=== PATIENT | female | born 1965 | race Caucasian/White ===

== ENCOUNTER 2024-03-20 13:56 | Outpatient (REF) | payer BC, SELFPAY ==
--- OUTSIDE RECORDS SUMMARY | 2024-03-20 17:35 | XMS_ITS | Clinical Summary ---
Author Organization [facility] [address] [facility] lding Address [address] [facility] [place] [address] Phone Care Team Providers Care Waste Reduction Coordinator Name Role Phone Deya Mixon MD Primary Care Provider [phone] Allergies No known active allergies Medications Medication Sig Dispensed Refills Start Date End Date Status estradioL (ESTRACE) 1 mg tablet Take 1 tablet (1 mg total) by mouth 1 (one) time each day. 05/08/2023 06/01/2024 Active estradioL (ESTRACE) 2 mg tablet Take 1 tablet (2 mg total) by mouth 1 (one) time each day. for 360 days 10/02/2023 09/26/2024 Active levonorgestreL (MIRENA) 21 mcg/24hr (up to 8 yrs) 52 mg IUD 1 Device (1 each total) by intrauterine route 1 (one) time. Active valACYclovir (VALTREX) 500 mg tablet Take 1 tablet (500 mg total) by mouth 1 (one) time each day. 09/26/2022 Active Active Problems Problem Noted Date Diagnosed Date Arthralgia 09/26/2022 Stress incontinence 09/26/2022 Chronic back pain 08/04/2021 Diverticulosis 04/25/2016 Overview (01/15/2024): Seen on colonoscopy 03/2016 Abdominal obesity 05/14/2013 Pap smear abnormality of cervix 04/29/2013 Overview (01/15/2024): History: PAP 03/12/2012: Cytology negative; High Risk HPV DNA detected PAP 04/29/2013: Cytology Negative; HPV DNA negative PAP 04/01/2019: Cytology Negative; High Risk HPV DNA negative Depressive disorder 06/23/2005 Herpes simplex virus (HSV) infection 06/23/2005 Overview (01/15/2024): IMO update Pure hypercholesterolemia 06/23/2005 Encounters Date Type Department Care Team Description 02/12/2024 3:59 PM EST - 02/12/2024 11:59 PM EST Hospital Encounter Radiology Department - [address] [address] Irregular bleeding; IUD (intrauterine device) in place Discharge Disposition: Home or Self Care 02/05/2024 Telephone Obstetrics and Gynecology - [place] [address] [place] [address] Aissatou Carranza CNM Biopsy 01/01/2024 Telephone Obstetrics and Gynecology - [place] [address] [place] [address] Aissatou Carranza CNM Appointment from Last 3 Months Immunizations Name Administration Dates Next Due Influenza Quadravalent, MDCK , 0.5ml, preservative free (Flucelvax) 6mo and older 12/07/2021 Influenza trivalent, 0.5mL, preservative free (Fluarix; FluLaval; Fluzone) ages 6mo and older (Afluria) 3 years and older 12/23/2018,12/22/2017,11/13/2015,2014,12/13/2013,12/04/2012 Influenza trivalent, with preservative (Fluzone; Afluria) 6mo and older 01/12/2020 Td Tetanus diptheria (Tdvax) 7yo and older 08/04/2021,03/30/1999 Tdap Tetanus diptheria acell ular pertussis (Boostrix; Adacel) 7yo and older 08/25/2009 Surgical History Surgery Date Site/Laterality Comments BREAST REDUCTION 1- PROCEDURE: [place] BREAST REDUCTION OTHER SURGICAL HISTORY 05/29/06 PROCEDURE: [place] CRYOTHERAPY CO2 SLUSH LIQUID N2 ACNE; COMMENT: Cryotherapy to the cervix COLONOSCOPY 04.22.16 PROCEDURE: HISTORICAL COLONOSCOPY; COMMENT: tics; repeat in 10 yrs Medical History Medical History Date Comments Pure hypercholesterolemia DX:Pur e hypercholesterolemia Depressive disorder, not els ewhere classified DX:Depressive disorder, not elsewhere classified Herpes simplex without menti on of complication DX:Herpes simplex without me ntion of complication Pap smear abnormality of cervix 04/29/2013 DX:Pap smear abnormality of cervix Family History Medical History Relation Name Comments Hyperlipidemia Brother 1 Other: kidney CANCER Brother 1 No Known Problems Daughter 1 Anna No Known Problems Daughter 2 Dena Hypertension Father cad Lung cancer Maternal Grandfather Breast cancer Maternal Grandmother diagno sed at age 56 No Known Problems Mother Heart attack Paternal Grandfather Heart attack Paternal Grandmother Stroke Paternal Grandmother No Known Problems Sister No Known Problems Son Omar Cancer of Small Bowel Neg Hx Colon cancer Neg Hx Ovarian cancer Neg Hx Pancreatic cancer Neg Hx Uterine cancer Neg Hx Relation Name Status Comments Brother 1 Alive Brother 2 Alive hypercholestero l Daughter 1 Anna Alive Daughter 2 Dena Alive Father htn - ptca/sten t Maternal Grandfather (Age 58) mi Maternal Grandmother (Age 61) br east cancer Mother Alive well Paternal Grandfather (Age 72) mi Paternal Grandmother Sister Alive Son Omar Alive Social History Tobacco Use Types Packs/Day Years Used Date Smoking Tobacco: Former Cigarettes Q uit: 02/27/1995 Smokeless Tobacco: Never Alcohol Use Standard Drinks/Week Comments Yes 3.3 (1 standard drink = 0.6 oz p ure alcohol) Sex and Gender Information Value Date Recorded Sex Assigned at Female 02/08/2024 2:45 PM EST Gender Identity Female 02/08/2024 2:45 PM EST Sexual Orientation Not on file Job Start Date Occupation Industry Not on file Not on file Not on file Obstetrics History Last Filed Vital Signs Vital Sign Reading Time Taken Comments Blood Pressure 138/77 05/08/2023 11:22 AM EDT Pulse 68 01/23/2023 11:44 AM EST Temperature - - Respiratory Rate - - Oxygen Saturation - - Inhaled Oxygen Concentration - - Weight 75.5 kg (166 lb 6.4 oz) 05/08/2023 11:22 AM EDT Height 172.7 cm (5' 8 ) 05/08/2023 11:22 AM EDT Body Mass Index 25.3 05/08/2023 11:22 AM EDT Plan of Treatment Health Maintenance Due Date Last Done Comments Breast Cancer Screening 1965 Hepatitis B Vaccines (1 of 3 - 19+ 3-dose series) 1984 Depression Screening 02/05/2022 HIV Screening 02/05/2022 Social Influencers of Health Screening 02/05/2022 COVID-19 Vaccine ( season) 2023 02/02/2021, 07/08/2020, 06/17/2020 Influenza Vaccine (#1) 2023 , 01/12/2020, 12/23/2018, Additional history exists Cervical Cancer Screening: HPV 04/01/2024 04/01/2019 Colorectal Cancer Screening: Colonoscopy 04/22/2026 04/22/2016 Cholesterol Screening (Lipid Panel) 05/07/2028 05/08/2023 DTaP,Tdap,and Td Vaccines (4 - Td or Tdap) 08/05/2031 08/04/2021, 08/25/2009, 03/30/1999 Zoster Vaccines Completed 04/13/2021, 02/02/2021 Hepatitis C Screening Completed 08/04/2021 HIB Vaccines Aged Out No longer eligi ble based on patient's age to complete this topic HPV Vaccines Aged Out No longer eligi ble based on patient's age to complete this topic Hepatitis A Vaccines Aged Out No long er eligible based on patient's age to complete this topic IPV Vaccines Aged Out No longer eligi ble based on patient's age to complete this topic MMR Vaccines Aged Out No longer eligi ble based on patient's age to complete this topic Meningococcal ACWY Vaccine Aged Out N o longer eligible based on patient's age to complete this topic Pneumococcal Vaccine: Pediatrics (0 to 5 Years) and At-Risk Patients (6 to 64 Years) Aged Out No longer eligible based on patient's age to complete this topic RSV Immunization Patients Under 20 months Aged Out No longer eligible based on patient's age to complete this topic Varicella Vaccines Aged Out No longer eligible based on patient's age to complete this topic Procedures Procedure Name Priority Date/Time Associated Diagnosis Comments US PELVIS NON OB COMPLETE W TRANSVAGINAL Routine 02/12/2024 4:27 PM EST Irregular bleeding IUD (intrauterine device) in place LIPID PANEL Routine 05/08/2023 HM HEPATITIS C SCREENING Routine 08/04/2021 HPV Routine 04/01/2019 COLONOSCOPY Routine 04/22/2016 from Last 3 Months or Most Recently Relevant to Health Maintenance Results * US Pelvis Non OB Complete w Transvaginal (02/12/2024 4:27 PM EST) Anatomical Region Laterality Modality Body, Pelvis Ultrasound 02/12/2024 5:12 PM EST Impressions 02/12/2024 5:14 PM EST Unremarkable sonographic appearance of the uterus. -------- FINAL REPORT -------- Dictated By: Simin Sam Dictated Date: 02/12/2024 17:12 ET Assigned Physician: Simin Sam Reviewed and Electronically Signed By: Simin Sam Signed Date: 02/12/2024 17:14 ET Workstation ID: [id number] Transcribed By: Self Edit Transcribed Date: 02/12/2024 17:12 ET Narrative 02/12/2024 5:14 PM EST EXAM(s): ?? US PELVIS NON OB COMPLETE W TRANSVAGINAL COMPARISON: None HISTORY: irreg bleeding, IUD in place FINDINGS: UTERUS: The uterus measures 8.0 x 3.5 x 5.8 cm, volume of 85.0 cm3, and demonstrates homogeneous ??myometrial echotexture. The endometrial echocomplex measures 0.3 cm in thickness. ??An intrauterine device is identified terminating at 0.3 cm from the fundic end of the endometrial cavity. RIGHT OVARY: Not visualized. LEFT OVARY: Not visualized. ?? PELVIS: No free fluid. Procedure Note Simin Sam MD - 02/12/2024 EXAM(s): US PELVIS NON OB COMPLETE W TRANSVAGINAL COMPARISON: None HISTORY: irreg bleeding, IUD in place FINDINGS: UTERUS: The uterus measures 8.0 x 3.5 x 5.8 cm, volume of 85.0 cm3, anddemonstrates homogeneous myometrial echotexture. The endometrialechocomplex measures 0.3 cm in thickness. An intrauterine device isidentified terminating at 0.3 cm from the fundic end of the endometrialcavity. RIGHT OVARY: Not visualized. LEFT OVARY: Not visualized. PELVIS: No free fluid. IMPRESSION: Unremarkable sonographic appearance of the uterus. -------- FINAL REPORT -------- Dictated By: Simin Sam Dictated Date: 02/12/2024 17:12 ET Assigned Physician: Simin Sam Reviewed and Electronically Signed By: Simin Sam Signed Date: 02/12/2024 17:14 ET Workstation ID: [id number] Transcribed By: Self Edit Transcribed Date: 02/12/2024 17:12 ET Aissatou Carranza CNM IMG US PROCEDURES * (ABNORMAL) Lipid panel (05/08/2023) [facility] LDL/HDL Ratio 3 0 - 4 Triglycerides 103 0 - 150 mg/dL Cholesterol 277(A) 0 - 200 mg/dL HDL 93 40 mg/dL LDL Cholesterol 164(A) 0 - 100 mg/dL Blood Venous blood specimen / Unknown Historical Provider LAB BLOOD ORDERAB LES * Hepatitis C Screening (08/04/2021) [facility] Hepatitis C Screening Abstracted Historical Provider MD TAYLOR TRISTAN * Cervical Cancer Screening: HPV (04/01/2019) [facility] Cervical Cancer Screening: HPV Negative, abstracted Historical Provider MD TAYLOR TRISTAN E * Colonoscopy (04/22/2016) [facility] Colonoscopy No interpretation , abstracted Anatomical Region Laterality Modality Other Historical Provider MD TAYLOR Acuna from Last 3 Months or Most Recently Relevant to Health Maintenance Care Teams Waste Reduction Coordinator Relationship Specialty Start Date End Date Deya Mixon MD [address] [place] [id number] PCP - General 08/14/23
[2024-03-20 17:42] LABS: MANUAL DIFF FLAG NO
[2024-03-20 17:49] LABS: Basophils Percent Auto 0.5 % (0-2); Eosinophils Absolute Auto 0.1 X10*3/uL (0.0-0.4); Eosinophils Percent Auto 0.6 % (0-4); Hemoglobin 13.1 g/dl (12.0-16.0); Imm Gran Abs Auto 0.05 X10*3/uL (0.00-0.03); Imm Gran Pct Auto 0.6 % (0.0-0.4); Lymphocytes Absolute Auto 2.3 X10*3/uL (1.2-4.9); Lymphocytes Percent Auto 25.5 % (20-40); Mean Corpuscular HGB Conc 33.6 g/dl (31.0-35.0); Mean Corpuscular Hemoglobin 31.6 pg (27.0-33.0); Mean Platelet Volume 10.4 fL (9.4-12.3); Monocytes Absolute Auto 0.7 X10*3/uL (0.1-1.2); Monocytes Percent Auto 7.6 % (2-11); Neutrophils Absolute Auto 5.8 x10*3/uL (2.0-8.3); Neutrophils Percent Auto 65.2 % (45-73); Platelet Count 277 X10*3/uL (160-400); Red Blood Count 4.15 X10*6/uL (4.20-5.50); Red Cell Distribution Width 11.6 % (11.0-16.0); White Blood Count 8.8 X10*3/uL (4.8-10.8)
[2024-03-20 17:58] LABS: Alanine Aminotransferase 35 U/L (0-31); Aspartate Amino Transferase 38 U/L (5-31); C Reactive Protein 0.58 mg/dL (< or = 0.50); Calcium 9.5 mg/dL (8.4-10.2); Estimated Glomerular Filt Rate > 60; Magnesium 2.1 mg/dL (1.6-2.6); Potassium 4.1 mmol/L (3.3-5.1)
[2024-03-20 18:27] LABS: Vitamin B12 605 pg/mL (200-900)
[2024-03-20 18:44] LABS: Erythrocyte Sedimentation Rate 16 MM/HR (0-20)
[2024-03-26 06:54] LABS: Aldolase 4.9 U/L (<=8.1)
== END 2024-03-20 13:57 | disposition home or self-care (01) ==
LOC: HO.HKASLDS 13:56
PROVIDERS: Visit Provider Internal Medicine Rheumatology
DX: M79.10 Myalgia, unspecified site (principal); G62.9 Polyneuropathy, unspecified; M75.32 Calcific tendinitis of left shoulder
CPT/HCPCS: 36415; 82085; 82310; 82550; 82565; 82607; 83735; 84132; 84450; 84460; 85025; 85652; 86140

== ENCOUNTER 2024-03-20 13:56 | Outpatient (AMB) | payer BC, SELFPAY ==
[2024-03-20 14:01] VITALS: BP 112/62; PULSE 67; O2SAT 100; BMI 27.4
--- NOTE | 2024-03-20 14:01 | A.OFFVIS_ITS ---
Vital Signs 03/20/24 14:01 Height 5 ft 8 in Weight 180 lb 2 oz BMI 27.4 BP 112/62 Blood Pressure Location Lt brachial Position Sitting Pulse 67 Pulse Source Pulse Oximeter Pulse Oximetry (%) 100 Oxygen Delivery Method Room Air Intake Visit Reasons: osteoarthritis Intake Note: Patient presents for osteoarthritis today, she last saw Dr. Boateng on 02/28/23. Allergies No Known Allergies Allergy (Verified 03/20/24 14:08) HPI HPI osteoarthritis: Details: Patient is seeking 2nd opinion. She saw Dr. Boateng ATC 2022 who suspected she had fibromyalgia contributing to chronic myalgias. She is experiencing chronic diffuse myalgias in arms and legs for the last 4 years. Waking up with pain. She has intermittent swelling in knees. Pain in knees with prolonged walking. Atorvastatin started october 2023. Pain in muscles has gotten worse since atorvastatin. PCP started lyrica 6 months ago without a change in reducing pain for management of fibromyalgia. Industrial Refrigeration Mechanic prescribed duloxetine but she became nauseous. Failed meloxicam and diclofenac. She has not tried gabapentin. Chronic back pain in left > Right radiculopathy. Previously had L spine cortisone injection with 3 weeks of benefit. She completed PT. She is not complaint with exercises. Wakes up with fingers numb. Nocturnal paresthesia in fingers. She also has numbness in her feet which sometimes coincides with numbness in her fingers. Denies rashes, oral ulcers, dyspnea, fevers, night sweat, pleurisy, raynaud's syndrome, urinary symptoms, photosensitivity, dysphagia. Facial redness since manopause. She has not started on any new medication recently. Lost 40lbs intentially She reports that she has had testing for diabetes on a number of occasions. She has been found to be insulin resistant but not diabetic. Sometimes her blood sugar level is low. She wears a blood sugar monitor. She has had thyroid function test number of times, which has also been normal. No rheumatological family history. Breast reduction surgery. Pmx insulin resistance, HLD, HSV PFSH Surgical History (Updated 03/20/24 @ 14:10 by Cande Tran CMA) S/P bilateral breast reduction Family History (Updated 03/20/24 @ 14:12 by Cande Tran CMA) Maternal Grandmother Cancer Maternal Grandfather Heart attack Paternal Grandmother Stroke Review of Systems Const All systems reviewed & are unremarkable except as noted in HPI and below Physical Exam Vital Signs: Last Vital Signs Pulse 67 03/20/24 14:01 BP 112/62 03/20/24 14:01 Pulse Ox 100 03/20/24 14:01 Oxygen Delivery Method Room Air 03/20/24 14:01 BMI result Body Mass Index 27.4 Const Other: Negative Phalen's test.or tender points on her back. Power 5/5 upper extremities. Power 4/5 hip flexors, 5/5 hip extensors, 5/5 knee extensors and flexors. She is able to get up out of a chair to standing position without using hands on armrest. She is able to squat but not fully. Negative Phalen's test. Assessment & Plan Assessment & Plan (1) Myalgia: Comment: Chronic myalgias for 4 years, which has worsened on atorvastatin. She has associated paresthesia of bilateral hands and feet. On exam she has lower extremity proximal muscle weakness. Differential diagnosis includes statin induced myopathy, metabolic myopathy with idiopathic inflammatory myopathy lower on the differential. Her clinical exam did not reveal tender points to suggest fibromyalgia. Code(s): M79.10 - Myalgia, unspecified site Category: Medical Plan: Labs ordered: Baseline labs, inflammatory markers, Muscle enzymes, electrolytes, vitamin B12 EMGs of bilateral upper extremities and right lower extremity ordered. I will avoid having EMG of left lower extremity in case muscle biopsy is needed. I will consider trial off of atorvastatin next visit. I have asked patient to contacted concerns to establish with PCP as her current PCP is closing practice. Return to clinic in 2-3 weeks (2) Neuropathy: Code(s): G62.9 - Polyneuropathy, unspecified Category: Medical Plan: See above (3) Calcific tendonitis of left shoulder: Comment: Chronic but intermittent. X-ray report from 02/17/2023 [facility] reviewed, which reveals calcific tendinitis. We discussed diagnosis and management. Code(s): M75.32 - Calcific tendinitis of left shoulder Category: Medical Plan: PT ordered. Patient prefers to have PT locally. Prescription given to patient. Orders: Orders Erythrocyte Sedimentation Rate Today M79.10 - Myalgia, unspecified site C Reactive Protein Today M79.10 - Myalgia, unspecified site Creatinine Today M79.10 - Myalgia, unspecified site Calcium Today M79.10 - Myalgia, unspecified site NE electromyogram (EMG) Today G62.9 - Polyneuropathy, unspecified, M79.10 - Myalgia, unspecified site PT Evaluation and Treatment Today M75.32 - Calcific tendinitis of left shoulder Alanine Aminotransferase Today M79.10 - Myalgia, unspecified site Aspartate Amino Transferase Today M79.10 - Myalgia, unspecified site Complete Blood Count Auto Diff Today M79.10 - Myalgia, unspecified site Creatine Kinase Total Today M79.10 - Myalgia, unspecified site Aldolase Today M79.10 - Myalgia, unspecified site Magnesium Today M79.10 - Myalgia, unspecified site Potassium Today M79.10 - Myalgia, unspecified site Vitamin B12 Today G62.9 - Polyneuropathy, unspecified Coding Level of Care Code New Pt Level 4 (19061) Diagnoses Myalgia M79.10 Neuropathy G62.9 Calcific tendonitis of left shoulder M75.32
== END 2024-03-20 15:06 | disposition home or self-care (01) ==
PROVIDERS: Visit Provider Internal Medicine Rheumatology
DX: M79.10 Myalgia, unspecified site (principal); G62.9 Polyneuropathy, unspecified; M75.32 Calcific tendinitis of left shoulder
CPT/HCPCS: 99204

== ENCOUNTER 2024-04-02 08:15 | Outpatient (AMB) | payer BC, SELFPAY ==
--- OUTSIDE RECORDS SUMMARY | 2024-04-02 08:19 | XMS_ITS | Clinical Summary ---
Author Organization [facility] [address] [facility] lding Address [address] [place] [facility] [place] [address] Phone Care Team Providers Care Saw Cleaner Name Role Phone Deya Mixon MD Primary Care Provider [phone] Allergies No known active allergies Medications Medication [...] PM EST Hospital Encounter Radiology Department - [address] [address] Irregular bleeding; IUD (intrauterine device) in place Discharge Disposition: Home or Self Care 02/05/2024 Telephone Obstetrics and Gynecology - [place] [address] [place] [address] Aissatou Carranza CNM Biopsy 01/01/2024 Telephone Obstetrics and Gynecology - [place] [address] [place] [address] Aissatou Carranza CNM Appointment from [...] Signed Date: 02/12/2024 17:14 ET Workstation ID: [id number] Transcribed By: Self Edit Transcribed Date: 02/12/2024 [...] Signed Date: 02/12/2024 17:14 ET Workstation ID: [id number] Transcribed By: Self Edit Transcribed Date: 02/12/2024 17:12 ET Aissatou Carranza CNM IMG US PROCEDURES * (ABNORMAL) Lipid panel (05/08/2023) [facility] LDL/HDL Ratio 3 0 - 4 Triglycerides 103 0 - 150 mg/dL Cholesterol 277(A) 0 - 200 mg/dL HDL 93 40 mg/dL LDL Cholesterol 164(A) 0 - 100 mg/dL Blood Venous blood specimen / Unknown Historical Provider LAB BLOOD ORDERAB LES * Hepatitis C Screening (08/04/2021) [facility] Hepatitis C Screening Abstracted Historical Provider MD TAYLOR TRISTAN * Cervical Cancer Screening: HPV (04/01/2019) [facility] Cervical Cancer Screening: HPV Negative, abstracted Historical Provider MD TAYLOR TRISTAN E * Colonoscopy (04/22/2016) [facility] Colonoscopy No interpretation , abstracted Anatomical Region Laterality Modality Other Historical Provider MD TAYLOR Acuna from Last 3 Months or Most Recently Relevant to Health Maintenance Care Teams Saw Cleaner Relationship Specialty Start Date End Date Deya Mixon MD [address] [place] [id number] PCP - General 08/14/23
[2024-04-02 08:25] VITALS: BP 118/72; PULSE 76; O2SAT 97; BMI 27.8
--- NOTE | 2024-04-02 08:25 | MHC.OFFVIS ---
Vital Signs 04/02/24 08:25 Height 5 ft 8 in Weight 183 lb BMI 27.8 BP 118/72 Blood Pressure Location Lt brachial Position Sitting Pulse 76 Pulse Source Pulse Oximeter Pulse Oximetry (%) 97 Oxygen Delivery Method Room Air Intake Visit Reasons: 2-3 weeks f/u Intake Note: Patient presents for follow up on myalgia. She was last seen in the office by Dr. Pederson on 03/20/24. Follow up on loabs today, too. Allergies No Known Allergies Allergy (Verified 04/02/24 08:28) Do you need a note to return to daycare/school/sports/work: No HPI HPI 2-3 weeks f/u: Details: There has been no change in her symptoms. EMG scheduled at the end of the month. She woke up recently with numbness in her hands, self resolved. [facility] Surgical History (Updated 03/20/24 @ 14:10 by Cande Tran CMA) S/P bilateral breast reduction Family History (Updated 03/20/24 @ 14:12 by Cande Tran CMA) Maternal Grandmother Cancer Maternal Grandfather Heart attack Paternal Grandmother Stroke Review of Systems Const All systems reviewed & are unremarkable except as noted in HPI and below Physical Exam Vital Signs: Last Vital Signs Pulse 76 04/02/24 08:25 BP 118/72 04/02/24 08:25 Pulse Ox 97 04/02/24 08:25 Oxygen Delivery Method Room Air 04/02/24 08:25 BMI result Body Mass Index 27.8 Const Other: General: Comfortable Skin: No lesions seen MSK: Diffuse tenderness of upper extremities. Tender bilateral shoulders. She has full range of motion of bilateral shoulders but it occurs slowly with pain. No tender points and lower extremities and back. Assessment & Plan Assessment & Plan (1) Myalgia: Comment: Chronic myalgias for 4 years, which has worsened on atorvastatin. She has associated paresthesia of bilateral hands and feet. On last exam she has lower extremity proximal muscle weakness. I am concerned that she has statin induced myopathy contributing to her myalgias and muscle weakness. Muscle enzymes are normal. She has mild elevation in CRP. Code(s): M79.10 - Myalgia, unspecified site Category: Medical Plan: She will be having a telehealth visit with PCP. I recommending discontinuing atorvastatin. She will follow-up with me in 6 weeks' time for EMG results. I will then check liver function tests. EMGs of bilateral upper extremities and right lower extremity scheduled for 04/26/2024 Return to clinic in 6 weeks (2) Neuropathy: Code(s): G62.9 - Polyneuropathy, unspecified Category: Medical Plan: EMG scheduled for further evaluation (3) Calcific tendonitis of left shoulder: Comment: Chronic but intermittent. X-ray report from 02/17/2023 [facility] reviewed, which reveals calcific tendinitis. Patient has not scheduled physical therapy Code(s): M75.32 - Calcific tendinitis of left shoulder Category: Medical Plan: I encouraged patient to schedule physical therapy and rehab resolutions, where patient prefers to go for PT. Coding Level of Care Code Est Pt Level 4 (35133) Complex EM visit Add On G2211 Diagnoses Myalgia M79.10 Neuropathy G62.9 Calcific tendonitis of left shoulder M75.32
== END 2024-04-02 09:00 | disposition home or self-care (01) ==
PROVIDERS: Visit Provider Internal Medicine Rheumatology
DX: M79.10 Myalgia, unspecified site (principal); G62.9 Polyneuropathy, unspecified; M75.32 Calcific tendinitis of left shoulder
CPT/HCPCS: 99214

== ENCOUNTER 2024-05-22 13:06 | Outpatient (REF) | payer BC, SELFPAY ==
--- NOTE | 2024-05-22 13:16 | EMG_ITS ---
Chief complaint: Upper extremity weakness. Noted 4+/5 today on shoulder abduction. No atrophy seen. Bilateral feet numbness, today more prominent on right foot. No footdrop. Reason for referral: Evaluate for myopathy Referred by: Dr. Pederson Procedure done: Bilateral upper and right lower extremities NCS/EMG Precautions and/or limitations: None The limb temperature was monitored continuously and remained between 32-36 degrees C during the performance of the NCS. Nerve Conduction Studies Anti Sensory Summary Table ?Stim Site NR Onset (ms) Norm Onset (ms) Peak (ms) Norm Peak (ms) O-P Amp (?V) Norm O-P Amp Site1 Site2 Delta-0 (ms) Dist (cm) Joe (m/s) Norm Joe (m/s) Left Median Anti Sensory (2nd Digit) Wrist ? 2.5 3.2 <3.6 15.0 >10 Wrist 2nd Digit 2.5 14.0 56 Right Median Anti Sensory (2nd Digit) Wrist ? 2.1 3.2 <3.6 23.4 >10 Wrist 2nd Digit 2.1 14.0 67 Right Radial Anti Sensory (Thumb) Forearm ? 1.7 2.3 <3.1 14.2 Forearm Thumb 1.7 0.0 Right Sural Anti Sensory (Lat Mall) Calf ? 3.1 3.7 <4.0 6.7 >5.0 Calf Lat Mall 3.1 14.0 45 Left Ulnar Anti Sensory (5th Digit) Wrist ? 2.6 3.2 <3.7 17.5 >15.0 Wrist 5th Digit 2.6 14.0 54 Right Ulnar Anti Sensory (5th Digit) Wrist ? 0.9 3.0 <3.7 17.9 >15.0 Wrist 5th Digit 0.9 14.0 156 Motor Summary Table ?Stim Site NR Onset (ms) Norm Onset (ms) O-P Amp (mV) Norm O-P Amp iAmp (mV) Amp (1st) (%) Site1 Site2 Delta-0 (ms) Dist (cm) Joe (m/s) Norm Joe (m/s) Left Median Motor (Abd Poll Brev) Wrist ? 3.0 <3.9 13.1 >4.5 15.5 100.0 Elbow Wrist 4.0 21.0 53 >45 Elbow ? 7.0 12.8 15.2 97.7 Right Median Motor (Abd Poll Brev) Wrist ? 3.0 <3.9 15.0 >4.5 17.1 100.0 Elbow Wrist 4.0 21.0 53 >45 Elbow ? 7.0 13.3 15.0 88.7 Right Peroneal Motor (Ext Dig Brev) Ankle ? 3.9 <4.0 3.5 >2.5 4.0 100.0 Ankle Ext Dig Brev 3.9 0.0 B Fib ? 10.8 3.8 4.5 108.6 B Fib Ankle 6.9 31.0 45 >40 Poplt ? 11.7 3.8 4.5 108.6 Poplt B Fib 0.9 5.0 56 >40 Right Tibial Motor (Abd Gorman Brev) Ankle ? 4.1 <5 8.0 >2.5 12.6 100.0 Ankle Abd Gorman Brev 4.1 0.0 Knee ? 13.4 7.3 9.5 91.3 Knee Ankle 9.3 38.0 41 >40 Left Ulnar Motor (Abd Dig Minimi) Wrist ? 3.0 <3.0 6.0 >5 7.5 100.0 B Elbow Wrist 3.0 19.0 63 >45 B Elbow ? 6.0 6.6 8.5 110.0 A Elbow B Elbow 1.6 10.0 63 >45 A Elbow ? 7.6 6.5 8.3 108.3 Right Ulnar Motor (Abd Dig Minimi) Wrist ? 2.8 <3.0 9.9 >5 11.7 100.0 B Elbow Wrist 3.1 20.0 65 >45 B Elbow ? 5.9 9.5 11.7 96.0 A Elbow B Elbow 1.4 10.0 71 >45 A Elbow ? 7.3 9.1 11.3 91.9 EMG ?Side Muscle Nerve Root Ins Act Fibs Psw Amp Dur Poly Recrt Int Pat Comment Right 1stDorInt Ulnar C8-T1 Incr 1+ 1+ Nml Nml 0 Nml Complete Right FlexCarRad Median C6-7 Nml Nml Nml Nml Nml 0 Nml Complete Right Biceps Musculocut C5-6 Incr 1+ 1+ Nml Nml 0 Nml Complete Right Triceps Radial C6-7-8 Nml Nml Nml Nml Nml 0 Nml Complete Right Deltoid Axillary C5-6 Nml Nml Nml Nml Nml 0 Nml Complete Left 1stDorInt Ulnar C8-T1 Nml Nml Nml Nml Nml 0 Nml Complete Left FlexCarRad Median C6-7 Nml Nml Nml Nml Nml 0 Nml Complete Left Biceps Musculocut C5-6 Incr 1+ 1+ Nml Nml 0 Nml Complete Left Triceps Radial C6-7-8 Nml Nml Nml Nml Nml 0 Nml Complete Left Deltoid Axillary C5-6 Nml Nml Nml Nml Nml 0 Nml Complete Right AbdHallucis MedPlantar S1-2 Nml Nml Nml Nml Nml 0 Nml Complete Right AntTibialis Dp Br Peron L4-5 Nml Nml Nml Nml Nml 0 Nml Complete Right PostTibialis Tibial L5, S1 Nml Nml Nml Nml Nml 0 Nml Complete Right MedGastroc Tibial S1-2 Nml Nml Nml Nml Nml 0 Nml Complete Right VastusMed Femoral L2-4 Nml Nml Nml Nml Nml 0 Nml Complete Paraspinal EMG ?Side Muscle Nerve Root Ins Act Fibs Psw Comment Right Cervical Upper Rami Nml Nml Nml Right Cervical Mid Rami Nml Nml Nml Right Cervical Lower Rami Nml Nml Nml Left Cervical Upper Rami Nml Nml Nml Left Cervical Mid Rami Nml Nml Nml Left Cervical Lower Rami Nml Nml Nml Right Lumbar Upper Rami Nml Nml Nml Right Lumbar Mid Rami Nml Nml Nml Right Lumbar Lower Rami Nml Nml Nml FINDINGS: All motor and sensory nerves tested showed normal latencies, amplitudes and conduction velocities. Concentric needle EMG was performed in selected muscles of the bilateral upper and right lower extremities, cervical lumbar paraspinals. Study revealed signs of electric abnormalities as shown in the table above. Small PSWs seen on bilateral biceps and right FDI muscle. No denervation or reinnervation changes seen in right lower extremity. No denervation seen on cervical or lumbar paraspinals. IMPRESSION: 1. Normal nerve conduction studies. 2. Needle EMG showed denervation findings seen bilateral proximal and distal muscles in upper extremities. Myopathy not completely ruled out. 3. Cervical radiculopathy not completely ruled out. 4. There is no electrodiagnostic evidence for median neuropathy, ulnar neuropathy, peroneal neuropathy, tibial neuropathy, or peripheral neuropathy. CLINICAL COMMENT: Consider muscle biopsy. Consider cervical imaging. Thank you for your kind referral. Nesha Salazar MD, FABIAN Board Certified, [place] Board [employer] and Rehabilitation (ABPMR) Board Certified, [place] Board [employer] Electrodiagnostic Medicine (ABEM) CODIN 01922 x 3 MTDD
--- OUTSIDE RECORDS SUMMARY | 2024-05-22 15:35 | XMS_ITS ---
Author Organization [facility] Address [address] [place], [place] [id number] Care Team Providers Care Hand Turner Name Role Phone JON VAILFER Primary Care Provider VANNESSA WORRELL Unavailable [phone] ALLERGIES No Known Allergies REASON FOR VISIT sick MEDICATIONS Medication SIG (Take, Route, Frequency, Duration) Notes Start Date End Date Status Atorvastatin Calcium 20 MG 1 tablet Orally Once a day for 90 days Active Pregabalin ER 330 MG 1 tablet after the evening meal Orally Once a day for 90 days 10/17/2023 Active Magnesium Glycinate 210mg Not-Taking Meloxicam 15 MG 1 tablet Orally Once a day Not-Taking Black Cohosh 540 MG as directed Orally 540mg Not-Taking FreeStyle Pa 3 Sensor - change sensor every 2 weeks for 90 days 06/13/2023 Active Acyclovir 400 MG 1 tablet Orally Once a day for 90 days Active Estradiol 2 MG 1 tablet Orally Once a day Active Mirena (52 MG) 20 MCG/DAY as directed Intrauterine Act bulmaro Vitamin B Complex - as directed Orally Active Acyclovir 5 % 1 application every 3 hours Externally Six times a day for 5 days 11/28/2023 Active Vitamin D 50 MCG (2000 UT) 1 capsule Orally Once a day Active SOCIAL HISTORY Tobacco Use: Social History Observation Description Date Details (start date - stop date) Former Smoker 02/28/1984 - 02/27/1994 Sex Assigned At : Social History Observation Description Sex Assigned At Unknown Tobacco Use/Smoking Question Answer Notes Tobacco use: former smoker When did you start smoking? 02/28/1984 When did you stop smoking? 02/27/1994 How long has it been since y ou last smoked? > 10 years Additional Findings: Tobacco User Modera te cigarette smoker (10-19 cigs/day) Section Notes: Patient lives in [place], [place] with 2 daughters. VITAL SIGNS Height 68 in 03/13/2024 Height-cm 172.72 cm 03/13/2024 Encounters Encounter Location Date Provider Diagnosis [address] [place] [id number] 03/13/2024 VANNESSA WORRELL Viral illness B34.9 ASSESSMENTS Encounter Date Diagnosis Assessment Notes Treatment Notes Treatment Clinical Notes Section Notes 03/13/2024 Viral illness (ICD-10 - B34.9) Question influenza vs RSV She is just outside of antiviral therapy and given her heartburn/burning upset this might make it worse She is to start Mucinex DM max BID x 5 days Tylenol/ibuprofen scheduled Increase fluids, Vit C, zinc, melatonin HS Will follow up Monday, prior if report is positive 03/13/2024 Other Total time spen t with patient 20 minutes which includes face to face visit, education and coordination of care. Total time spent with patient 20 minutes which includes face to face visit, education and coordination of care. PLAN OF TREATMENT Treatment Notes Assessment Notes Viral illness Question influenza vs RSV She is just outside of antiviral therapy and given her heartburn/burning upset this might make it worse She is to start Mucinex DM max BID x 5 days Tylenol/ibuprofen scheduled Increase fluids, Vit C, zinc, melatonin HS Will follow up Monday, prior if report is positive Other Total time spent wit h patient 20 minutes which includes face to face visit, education and coordination of care. Total time spent with patient 20 minutes which includes face to face visit, education and coordination of care. Next Appt Details Follow Up: 2 - 3 Days, Reaso n: swab/wellbeing Progress Notes * CLIFFORD GONZALESOB: 6 (58 yo F)Acc No.[id number]:03/13/2024 Patient:??MARIE GONZALES Provider:??VANNESSA WORRELL NP :1965?Age:58 Y?Sex:Fe male Date:03/13/2024 Phone: Address:[address] [place] [address] [id number] Pcp:NATASHA VAIL Subjective: * Chief Complaints: * ? sick * HPI: ?Patient Care Team:?Road Service Locksmith:??Road Service Locksmith: Dr. Lauren.?.??Bone Crusher:??Lui Wells MA.?.??Orthopedic:???[facility].? Providers/Specialists: Urogynogologist: Dr. Saldivar [facility]: Dr. Waller Physiatry: Dr. Carr OBGYN: Aissatou Patton [place]. ?Visit info:? The patient consents to HIPAA compliant telehealth visit using video platform within EHR system. The patient states they are in a private location in their home and the provider is located in the office in a private room. ?Marie presents today, via Telehealth, c/o chest congestion, productive cough w/acidic phlegm since last Monday. ? - continues w/headache, sore throat, hot/cold chills, body aches. Had a fever of 100.6 yesterday. ? - taking DayQuil, NyQuil & Tylenol. Has not tested for COVID (can't find at home test) ?-Unsure if she is having heartburn, throat is just on fire when she lays down ?-No fever this AM but question when she took Nyquil ?-Sweaty today ?-Loose cough, chest hurts with coughing. * ROS:?all systems reviewed and are non-contributory unless specified in the HPI. * Medical History:?? * Surgical History:??Punch Bio psy of the nose (2) 2022Scrapping of the tip of the left nostril 2021Wisdom Teeth Removed 1984Breast Augmentation 2004Colonoscopy 2016MRI of lower back - compressed disc cartalidge thinning 2021Lasik surgery 2020 * Hospitalization/Major Diagno stic Procedure:?? * Family History:??Father: dec eased 78 yrs, Heart Disease, Diabetes II.??Mother: alive, Heart Issues.??Paternal Grandfather: 51 yrs.??Paternal Grandmother: 74 yrs.??Maternal Grandfather: 84 yrs.??Maternal Grandmother: 61 yrs.??Brother: alive.??Sister: alive.??Brother #2: alive, Kidney Cancer.?? Grandparents all had heart related issues. * Social History:?Tobacco Use:??Tobacco Use/Smoking??Tobacco use:??former smoker,??When did you start smoking???02/28/1984,??When did you stop smoking???02/27/1994,??How long has it been since you last smoked???> 10 years,??Additional Findings: Tobacco User??Moderate cigarette smoker (10-19 cigs/day).?Drugs/Alcohol:??Do you smoke marijuana?: Admits, edibles, vaping. Has a medical card. Do you drink alcohol?: Yes, Daily 7-10. 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 ?Patient lives in [place], [place] with 2 daughters. * Medications:??TakingVitamin D 50 MCG (1999 UT) Capsule 1 capsule Orally Once a day Acyclovir 5 % Ointment 1 application every 3 hours Externally Six times a day As needed at first sign of symptomsEstradiol 2 MG Tablet 1 tablet Orally Once a day Vitamin B Complex - Capsule as directed Orally Mirena (52 MG) 20 MCG/DAY Intrauterine Device as directed Intrauterine Acyclovir 400 MG Tablet 1 tablet Orally Once a day FreeStyle Pa 3 Sensor - Miscellaneous change sensor every 2 weeks Pregabalin ER 330 MG Tablet Extended Release 24 Hour 1 tablet after the evening meal Orally Once a day Atorvastatin Calcium 20 MG Tablet 1 tablet Orally Once a day Taking Vitamin D 50 MCG (2000 UT) Capsule 1 capsule Orally Once a day Taking Acyclovir 5 % Ointment 1 application every 3 hours Externally Six times a day As needed at first sign of symptomsTaking Estradiol 2 MG Tablet 1 tablet Orally Once a day Taking Vitamin B Complex - Capsule as directed Orally Taking Mirena (52 MG) 20 MCG/DAY Intrauterine Device as directed Intrauterine Taking Acyclovir 400 MG Tablet 1 tablet Orally Once a day Taking FreeStyle Pa 3 Sensor - Miscellaneous change sensor every 2 weeks Taking Pregabalin ER 330 MG Tablet Extended Release 24 Hour 1 tablet after the evening meal Orally Once a day Taking Atorvastatin Calcium 20 MG Tablet 1 tablet Orally Once a day Not-TakingMeloxicam 15 MG Tablet 1 tablet Orally Once a day Magnesium Glycinate , Notes to Pharmacist: 210mgBlack Cohosh 540 MG Capsule as directed Orally , Notes to Pharmacist: 540mgMedication List reviewed and reconciled with the patientNot-Taking Meloxicam 15 MG Tablet 1 tablet Orally Once a day Not-Taking Magnesium Glycinate , Notes to Pharmacist: 210mgNot-Taking Black Cohosh 540 MG Capsule as directed Orally , Notes to Pharmacist: 540mgMedication List reviewed and reconciled with the patient * Allergies:??N.K.D.A.no[Aller gies Verified] Objective: * Vitals:??BP: Not Taken - Tel ehealth, Ht: 68 in, Ht-cm: 172.72 cm. * Examination: ?General Examination: ?GEN: NAD, speaking in full complete sentences, thoughts clear and appropriate; mildly ill appearing ?RESP: nonlabored breathing, no audible SOB/Wheezing but loose cough ?NEURO: AO x 3 ?PSYCH: judgment/insight intact, NL mood/affect. Assessment: * Assessment: 1.??Viral illness - B34.9 (P rimary)?? Plan: * Treatment: 2.??Others?? Notes: Total time spent with patient 20 minutes which includes face to face visit, education and coordination of care. Total time spent with patient 20 minutes which includes face to face visit, education and coordination of care.? * Procedure Codes:?? * Preventive Medicine:?Last CPE: 07/2022 DEXA: No Colonoscopy: Yes, 2016 - Acc to my chart she is due in 10 years, 2025 Endoscopy: No COVID Vac: Yes, 1 booster FLU Vac: Yes PV: No Shingles Vac: Yes, 2020 Shingrix Td/Tdap: UTD Hep A/Hep B: unknown TUBE PUSHER: UTD SBE/Mammogram: UTD Eye Exam: Has Lasik Dental Exam: UTD Depression Scale: neg PHQ 9 Alcohol Misuse Screening: Neg Smoking Cessation: nonsmoker Screened HTN, diabetes, BMI addressed. * Follow Up:??2 - 3 Days (Reas on: swab/wellbeing) * Billing Information: * Visit Code:?? 05260 Office Visit, Est Pt., Level 3. * Procedure Codes:?? * Sign off status: Completed true * Provider:??VANNESSA WORRELL NP Date:?? History and Physical Notes * HPI (History of Present Illness) Category Sub-Category Detail Notes Category Not es Patient Care Team Road Service Locksmith: Road Service Locksmith: Dr. Bell. Providers/Specialist s: Urogynogologist: Dr. Saldivar [facility]: Dr. Waller Physiatry: Dr. Carr [facility] Bone [facility]her: Lui Wells M A. Orthopedic: [facility] Examination Category Sub-Category Detail Notes Category Not es General Examination GEN: NAD, speaking in full complete sentences, thoughts clear and appropriate; mildly ill appearing RESP: nonlabored breathing, no audible SOB/Wheezing but loose cough NEURO: AO x 3 PSYCH: judgment/insight intact, NL mood/affect
--- OUTSIDE RECORDS SUMMARY | 2024-05-22 15:36 | XMS_ITS ---
Author Organization [facility] Address [address] [place] [id number] Care Team Providers Care Customer Success Director Name Role Phone NATASHA VAIL Primary Care Provider VANNESSA WORRELL Unavailable [phone] REASON FOR VISIT f/u fasting labs MEDICATIONS Medication SIG (Take, Route, Frequency, Duration) Notes Start Date End Date Status Pregabalin ER 330 MG 1 tablet after the evening meal Orally Once a day for 90 days 10/17/2023 Active Atorvastatin Calcium 20 MG 1 tablet Orally Once a day for 90 days Active Meloxicam 15 MG 1 tablet Orally Once a day Not-Taking Magnesium Glycinate 210mg Not-Taking Black Cohosh 540 MG as directed Orally 540mg Not-Taking Mirena (52 MG) 20 MCG/DAY as directed Intrauterine Act bulmaro Acyclovir 400 MG 1 tablet Orally Once a day for 90 days Active FreeStyle Kody 3 Sensor - change sensor every 2 weeks for 90 days 06/13/2023 Active FreeStyle Kody 3 Plus Sensor - as directed for 90 days 04/02/2024 Acti ve Vitamin B Complex - as directed Orally Active Vitamin D 50 MCG (2000 UT) 1 capsule Orally Once a day Active Acyclovir 5 % 1 application every 3 hours Externally Six times a day for 5 days 11/28/2023 Active Estradiol 2 MG 1 tablet Orally Once a day Active VITAL SIGNS Height 68 in 04/02/2024 Height-cm 172.72 cm 04/02/2024 Encounters Encounter Location Date Provider Diagnosis [facility], [address] [id number] 04/02/2024 VANNESSA WORRELL Other hyperlipidemia E78.49 and Elevated liver function tests R79.89 ASSESSMENTS Encounter Date Diagnosis Assessment Notes Treatment Notes Treatment Clinical Notes Section Notes 04/02/2024 Other hyperlipidemia (ICD-10 - E78.49) Pt had very mild increase in her liver function testing for which we discussed repeating vs stopping statin with risks and benefits She is going to stop her statin per Dr Pederson's suggestion and retest in April. She would like to try pravastatin due to less body aches. She will have to follow up with new primary at this time 04/02/2024 Elevated liver function tests (ICD-10 - R79.89) As above, mildly elevated, not enough to stop statin but does warrant repeat Discussed tylenol affecting liver, NSAID affecting kidneys She unfortunately did not get her fasting blood work as directed Will need to follow up with new provider 04/02/2024 Other She is weaning off the pregabalin, declined suggestion of smaller dose because she does not want to pay for any more meds She is going to take QOD then every third, to oncea week until her current Rx is completed Will send over prescription for kody 3 plus Total time spent with patient 32 minutes which includes face to face visit, education and coordination of care. PLAN OF TREATMENT Medication Medication Name Sig Start Date Stop Date Notes FreeStyle Kody 3 Plus Sensor - as directed for 90 days Treatment Notes Assessment Notes Other hyperlipidemia Pt had very mild increase in her liver function testing for which we discussed repeating vs stopping statin with risks and benefits She is going to stop her statin per Dr Pederson's suggestion and retest in April. She would like to try pravastatin due to less body aches. She will have to follow up with new primary at this time Elevated liver function tests As above, mildly elevated, not enough to stop statin but does warrant repeat Discussed tylenol affecting liver, NSAID affecting kidneys She unfortunately did not get her fasting blood work as directed Will need to follow up with new provider Other She is weaning off the pregabalin, declined suggestion of smaller dose because she does not want to pay for any more meds She is going to take QOD then every third, to oncea week until her current Rx is completed Will send over prescription for kody 3 plus Next Appt Details Follow Up: N/A, Reason: clin ical line open until 04/19 Progress Notes * CLIFFORD GONZALESOB: 6 (58 yo F)Acc No.[id number]:04/02/2024 Progress Note Patient:??MARIE GONZALES Provider:??VANNESSA WORRELL NP :1965?Age:58 Y?Sex:Fe male Date:04/02/2024 Phone: Address:[address] [place] [address] , [id number] Pcp:NATASHA VAIL Subjective: * Chief Complaints: * ?F/u fasting labs * HPI: ?Visit info:? The patient consents to HIPAA compliant telehealth visit using video platform within EHR system. The patient states they are in a private location in their home and the provider is located in the office in a private room. ?-Saw Dr Pederson and she had blood work done and stated increased LFTs AST 39 ALT 35 and suggested going off med ?-Would like to wean off the pregabalin because she states it does not work at all ?-Dr Pederson ordered EMG on 04/26 ?-Recheck labs 05/[address] Pederson as well ?-Going to ?-Would like to starting Kody 3 plus ?-Also going to start PT but this time for her shoulder ?-Her labs were not fasting, I had ordered fasting labs ?-Would like to go on pravastatin for less body aches ?-crp 0.58. * ROS:?all systems reviewed and are non-contributory unless specified in the HPI. * Medical History:?? * Surgical History:?? * Hospitalization/Major Diagno stic Procedure:?? * Medications:??TakingVitamin D 50 MCG (2000 UT) Capsule 1 [...] 1 tablet Orally Once a day FreeStyle Kody 3 Sensor - Miscellaneous change sensor every [...] tablet Orally Once a day Taking FreeStyle Kody 3 Sensor - Miscellaneous change sensor every [...] as directed Orally , Notes to Pharmacist: 540mgNot-Taking Meloxicam 15 MG Tablet 1 tablet Orally Once a day Not-Taking Magnesium Glycinate , Notes to Pharmacist: 210mgNot-Taking Black Cohosh 540 MG Capsule as directed Orally , Notes to Pharmacist: 540mg Objective: * Vitals:??Ht: 68 in, Ht-cm: 1 72.72 cm. * Examination: ?General Examination: ?GEN: NAD, speaking in full complete sentences, thoughts clear and appropriate ?RESP: nonlabored breathing, no audible SOB/Wheezing ?NEURO: AO x 3 ?PSYCH: judgment/insight intact, NL mood/affect. Assessment: * Assessment: 1.??Other hyperlipidemia - E 78.49 (Primary)??2.??Elevated liver function tests - R79.89?? Plan: * Treatment: 2.??Elevated liver function tests?? Notes: As above, mildly elevated, not enough to stop statin but does warrant repeat Discussed tylenol affecting liver, NSAID affecting kidneys She unfortunately did not get her fasting blood work as directed Will need to follow up with new provider? 3.??Others?? Start FreeStyle Kody 3 Plus Sensor Miscellaneous, -, as directed change sensor every 15 days, 90 days, 6, Refills 4.? Notes: She is weaning off the pregabalin, declined suggestion of smaller dose because she does not want to pay for any more meds She is going to take QOD then every third, to oncea week until her current Rx is completed Will send over prescription for kody 3 plus? Clinical Notes: Total time spent with patient 32 minutes which includes face to face visit, education and coordination of care.? * Procedure Codes:?? * Follow Up:??N/A (Reason: cli nical line open until 04/19) * Billing Information: * Visit Code:?? 78774 Office Visit, Est Pt., Level 4. * Procedure Codes:?? * Sign off status: Completed true * Provider:??VANNESSA WORRELL NP Date:?? History and Physical Notes * HPI (History of Present Illness) Category Sub-Category Detail Notes Category Not es Visit info The patient consents to HIPAA compliant telehealth visit using video platform within EHR system. The patient states they are in a private location in their home and the provider is located in the office in a private room. -Saw Dr Pederson and she had blood work done and stated increased LFTs AST 39 ALT 35 and suggested going off med -Would like to wean off the pregabalin because she states it does not work at all -Dr Pederson ordered EMG on 04/26 -Recheck labs 05/[address] Pederson as well -Going to -Would like to starting Kody 3 plus -Also going to start PT but this time for her shoulder -Her labs were not fasting, I had ordered fasting labs -Would like to go on pravastatin for less body aches -crp 0.58 Examination Category Sub-Category Detail Notes Category Not es General Examination GEN: NAD, speaking in full complete sentences, thoughts clear and appropriate RESP: nonlabored breathing, no audible SOB/Wheezing NEURO: AO x 3 PSYCH: judgment/insight intact, NL mood/affect
--- OUTSIDE RECORDS SUMMARY | 2024-05-22 15:36 | XMS_ITS | Continuity of Care Document ---
Author Organization [employer] Address [address] [facility] [address] [place] [address] Insurance Providers Payer Plan Claims Address Claims Phone Policy Number Group Number Relation Employer Guarantor Name Guarantor Guarantor Address Guarantor Phone Blue Cross Blue Shield [employer] D [address], [place] [address] tel:[phone] [id number] Self Calista Watson [address] [place] [address] P[place]roy VICKYE M [address], [place] [address] tel:[phone] [id number] Self Calista Tessiedonovan [address] [place], [place] [id number] ([id number]) [facility] M [address], [place] [address] tel:[phone] [id number] Self Calista Tessiedonovan [address] [place] [address] Problems Unknown Problems Results Test Value / Unit Interpretation Reference Ran Comp. Metabolic Panel (14)[0 51566]?Collected: 12/04/2023 05:01 PM?Specimen Received: 12/04/2023 05:00 AM?Source: [facility] Glucose [851940] 87 mg/dL 70-99 mg/dL BUN [140643] 17 mg/dL 6-24 mg/dL Creatinine [993366] 0.62 mg/dL 0.57-1.0 0 mg/dL eGFR [496500] 103 mL/min/1.73 >59 mL/min/ 1.73 BUN/Creatinine Ratio [127963] 27 H 9-23 Sodium [610750] 140 mmol/L 134-144 mmol /L Potassium [166140] 4.5 mmol/L 3.5-5.2 m mol/L Chloride [009435] 100 mmol/L 96-106 mmo l/L Carbon Dioxide, Total [445427] 24 mmol/L 20-29 mmol/L Calcium [838460] 9.6 mg/dL 8.7-10.2 mg /dL Protein, Total [210108] 7.5 g/dL 6.0- 8.5 g/dL Albumin [238221] 4.6 g/dL 3.8-4.9 g/d L Globulin, Total [522626] 2.9 g/dL 1.5 -4.5 g/dL Bilirubin, Total [712090] 0.3 mg/dL 0. 0-1.2 mg/dL Alkaline Phosphatase [206889] 62 IU/L 44-121 IU/L AST (SGOT) [996629] 18 IU/L 0-40 IU/ L ALT (SGPT) [200728] 16 IU/L 0-32 IU/ L Lipid Panel[225595]?Collected: 12/04/2023 05:01 PM?Specimen Received: 12/04/2023 05:00 AM?Source: [facility] Cholesterol, Total [257150] 261 mg/dL H 100-199 mg/dL Triglycerides [738297] 128 mg/dL 0-149 mg/dL HDL Cholesterol [040832] 104 mg/dL >39 mg/dL VLDL Cholesterol Eren [203186] 22 mg/dL 5-40 mg/dL LDL Chol Calc (NIH) [885897] 135 mg/dL H 0-99 mg/dL Hemoglobin A1c[397012]?Collected: 12/04/2023 05:01 PM?Specimen Received: 12/04/2023 05:00 AM?Source: [facility] Hemoglobin A1c [537003] 5.5 % 4.8- 5.6 % . Prediabetes: 5.7 - 6.4 [place] betes: >6.4 Glycemic control for adults with diabetes: 7.0 Comp. Metabolic Panel (14)[3 01248]?Collected: 07/04/2023 04:01 PM?Specimen Received: 07/04/2023 05:00 AM?Source: [facility] Glucose [431478] 111 mg/dL H 70-99 mg/dL BUN [902442] 13 mg/dL 6-24 mg/dL Creatinine [695900] 0.76 mg/dL 0.57-1.0 0 mg/dL eGFR [918402] 91 mL/min/1.73 >59 mL/min/1 .73 BUN/Creatinine Ratio [179231] 17 9-23 Sodium [333364] 143 mmol/L 134-144 mmol /L Potassium [515773] 4.6 mmol/L 3.5-5.2 m mol/L Chloride [902390] 102 mmol/L 96-106 mmo l/L Carbon Dioxide, Total [604011] 25 mmol/L 20-29 mmol/L Calcium [762078] 9.5 mg/dL 8.7-10.2 mg /dL Protein, Total [113160] 6.7 g/dL 6.0- 8.5 g/dL Albumin [670261] 4.4 g/dL 3.8-4.9 g/d L Globulin, Total [139385] 2.3 g/dL 1.5 -4.5 g/dL A/G Ratio [965644] 1.9 1.2-2.2 Bilirubin, Total [500532] 0.4 mg/dL 0. 0-1.2 mg/dL Alkaline Phosphatase [996960] 69 IU/L 44-121 IU/L AST (SGOT) [864425] 21 IU/L 0-40 IU/ L ALT (SGPT) [919741] 16 IU/L 0-32 IU/ L Lipid Panel[229600]?Collected: 07/04/2023 04:01 PM?Specimen Received: 07/04/2023 05:00 AM?Source: [facility] Cholesterol, Total [950886] 259 mg/dL H 100-199 mg/dL Triglycerides [362185] 80 mg/dL 0-149 mg/dL HDL Cholesterol [670699] 90 mg/dL >39 mg/dL VLDL Cholesterol Eren [614853] 13 mg/dL 5-40 mg/dL LDL Chol Calc (NIH) [011831] 156 mg/dL H 0-99 mg/dL Albumin/Creatinine Ratio,Uri ne[186031]?Collected: 07/04/2023 04:01 PM?Specimen Received: 07/04/2023 05:00 AM?Source: [facility] Creatinine, Urine [535687] 189.1 mg/dL N ot Estab. mg/dL Albumin, Urine [404082] 9.6 ug/mL Not Estab. ug/mL Alb/Creat Ratio [878456] 5 mg/g creat 0-2 9 mg/g creat Normal: 0 - 29 Moderately in creased: 30 - 300 Severely increased: >300 Hemoglobin A1c[131117]?Collected: 07/04/2023 04:01 PM?Specimen Received: 07/04/2023 05:00 AM?Source: [facility] Hemoglobin A1c [561344] 5.4 % 4.8- 5.6 % . Prediabetes: 5.7 - 6.4 [place] betes: >6.4 Glycemic control for adults with diabetes: 7.0 Comp. Metabolic Panel (14)[3 29943]?Collected: 02/11/2023 04:56 PM?Specimen Received: 02/11/2023 05:00 AM?Source: [facility] Glucose [099393] 123 mg/dL H 70-99 mg/dL BUN [357289] 16 mg/dL 6-24 mg/dL Creatinine [582457] 0.76 mg/dL 0.57-1.0 0 mg/dL eGFR [272012] 91 mL/min/1.73 >59 mL/min/1 .73 BUN/Creatinine Ratio [812115] 21 9-23 Sodium [839209] 139 mmol/L 134-144 mmol /L Potassium [328795] 4.5 mmol/L 3.5-5.2 m mol/L Chloride [840848] 99 mmol/L 96-106 mmo l/L Carbon Dioxide, Total [675474] 23 mmol/L 20-29 mmol/L Calcium [686279] 10.2 mg/dL 8.7-10.2 mg /dL Protein, Total [229180] 7.2 g/dL 6.0- 8.5 g/dL Albumin [616984] 4.6 g/dL 3.8-4.9 g/d L Globulin, Total [730499] 2.6 g/dL 1.5 -4.5 g/dL A/G Ratio [928170] 1.8 1.2-2.2 Bilirubin, Total [680155] 0.5 mg/dL 0. 0-1.2 mg/dL Alkaline Phosphatase [773714] 78 IU/L 44-121 IU/L AST (SGOT) [113590] 24 IU/L 0-40 IU/ L ALT (SGPT) [206530] 18 IU/L 0-32 IU/ L Lipid Panel[507536]?Collected: 02/11/2023 04:56 PM?Specimen Received: 02/11/2023 05:00 AM?Source: [facility] Cholesterol, Total [773293] 330 mg/dL H 100-199 mg/dL Triglycerides [202756] 99 mg/dL 0-149 mg/dL HDL Cholesterol [688285] 71 mg/dL >39 mg/dL VLDL Cholesterol Eren [350118] 16 mg/dL 5-40 mg/dL LDL Chol Calc ([facility]) [151036] 243 mg/dL H 0-99 mg/dL Comment: [310403] 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 FH should be suspected whenfasting LDL cholesterol is above 189 mg/dL or non-HDL cholesterolis above 219 mg/dL. A family history of high cholesterol and heartdisease in 1st degree relatives should be collected. J Clin Sazevsa0947;5:133-140 Hemoglobin A1c[038016]?Collected: 02/11/2023 04:56 PM?Specimen Received: 02/11/2023 05:00 AM?Source: [facility] Hemoglobin A1c [551964] 5.4 % 4.8- 5.6 % . Prediabetes: 5.7 - 6.4 [place] betes: >6.4 Glycemic control for adults with diabetes: 7.0 Allergies, adverse reactions, alerts No known allergies and adverse reactions Medications No administered medications reported Vital Signs No vital signs reported Social History No smoking Hx information available
--- OUTSIDE RECORDS SUMMARY | 2024-05-22 15:36 | XMS_ITS | Clinical Summary ---
Author Organization [facility] [address] [facility] [address] Address [address] [facility] [place] [address] Phone Care Team Providers Care [employer] Name Role Phone Deya Mixon MD Primary Care Provider [phone] Allergies No known active allergies Medications estradioL (ESTRACE) 1 mg tablet Take 1 tablet (1 mg total) by mouth 1 (one) time each day. 4 06/02/19 25 Active estradioL (ESTRACE) 2 mg tablet Take 1 tablet (2 mg total) by mouth 1 (one) time each day. for 360 days 4 09/27/19 25 Active levonorgestreL (MIRENA) 21 mcg/24hr (up to 8 yrs) 52 mg IUD 1 Device (1 each total) by intrauterine route 1 (one) time. Active valACYclovir (VALTREX) 500 mg tablet Take 1 tablet (500 mg total) by mouth 1 (one) time each day. 3 Active Active Problems Problem Noted Date Diagnosed [...] Overview (01/15/2024): IMO update Pure hypercholesterolemia 06/23/2005 Immunizations Name Administration Dates Next Due Influenza [...] Date Site/Laterality Comments BREAST REDUCTION 1- PROCEDURE: HI BREAST REDUCTION OTHER SURGICAL HISTORY 05/29/06 PROCEDURE: HI CRYOTHERAPY CO2 SLUSH LIQUID N2 ACNE; COMMENT: [...] drink = 0.6 oz p ure alcohol) Comments Unknown Sex and Gender Information Value Date Recorded Sex Assigned at Female 02/08/2024 2:45 PM EST Legal Sex Female 9:02 PM EST Gender Identity Female 02/08/2024 2:45 PM EST Sexual Orientation Not on file Obstetrics History Last Filed [...] of 3 - 19+ 3-dose series) 1984 Pneumococcal Vaccine: 50+ Years (1 of 1 - PCV) 08/31/2015 Depression Screening 02/05/2022 HIV Screening 02/05/2022 Social [...] patient's age to complete this topic Meningococcal B Vacine Aged Out No lo nger eligible based on patient's age to complete [...] Procedure Name Priority Date/Time Associated Diagnosis Comments LIPID PANEL Routine 05/08/2023 HEPATITIS C SCREENING Routine 08/04/2021 HPV Routine 04/01/2019 COLONOSCOPY Routine 04/22/2016 from Last 3 Months or Most Recently Relevant to Health Maintenance Results * (ABNORMAL) Lipid panel (05/08/2023) LDL/HDL Ratio 3 0 - 4 Triglycerides 103 0 - 150 mg/dL Cholesterol 277(A) 0 - 200 mg/dL HDL 93 >=40 mg/dL LDL Cholesterol 164(A) 0 - 100 mg/dL Blood Venous blood specimen / Unknown us Historical Provider LAB BLOOD ORDERABLES Akua l Result * Hepatitis C Screening (08/04/2021) Pathologist [facility] Hepatitis C Screening Abstracted Historical Provider HEALTH MAINTENANCE Final Result * Cervical Cancer Screening: HPV (04/01/2019) Pathologist [facility] Cervical Cancer Screening: HPV Negative, abstracted Historical Provider HEALTH MAINTENANCE Final Result * Colonoscopy (04/22/2016) Pathologist [facility] Colonoscopy No interpretation , abstracted Anatomical Region Laterality Modality Other Historical Provider HEALTH MAINTENANCE Final Result from Last 3 Months or Most Recently Relevant to Health [place] [address] [place] [address] [employer] [place] [employer]) Care Teams [employer] Relationship Specialty Start Date End Date Deya Mixon MD PCP - General 08/14/23
== END 2024-05-22 13:07 | disposition home or self-care (01) ==
LOC: HO.NEURO 13:06
PROVIDERS: Visit Provider Internal Medicine Rheumatology
DX: G62.9 Polyneuropathy, unspecified (principal); R20.0 Anesthesia of skin; M79.10 Myalgia, unspecified site
CPT/HCPCS: 95886; 95912

== ENCOUNTER → 2024-05-22 13:16 | Outpatient (BNV) | payer BC, SELFPAY | PROVIDERS: Visit Provider Physical Medicine & Rehabilitation | DX: R20.0 Anesthesia of skin (principal); R20.2 Paresthesia of skin | CPT/HCPCS: 95886; 95912 ==

== ENCOUNTER 2024-05-24 13:49 | Outpatient (AMB) | payer BC, SELFPAY ==
[2024-05-24 13:57] VITALS: BP 112/64; PULSE 69; RESP 16; TEMP 36.9; O2SAT 98; BMI 27.3
--- NOTE | 2024-05-24 13:57 | A.OFFPC_ITS ---
Vital Signs 05/24/24 13:57 Height 5 ft 8 in Weight 179 lb 9.6 oz BMI 27.3 BP 112/64 Blood Pressure Location Lt brachial Position Sitting Respiration 16 Pulse 69 Pulse Source Pulse Oximeter Temp 98.5 F Temp Source Oral Pulse Oximetry (%) 98 Oxygen Delivery Method Room Air Intake Visit Reasons: Establish Care Intake Note: Patient is a new patient here to establish care. Transferring care from [facility] in [place], [place]. Medical records have been requested and have been received. Therapeutic Dietitian Required: No Accompanied by: Self / Same As Patient Allergies No Known Allergies Allergy (Verified 05/24/24 14:22) Medication List - Last Reconciled 05/24/24 by BARBARA Robledo acyclovir 400 mg PO DAILY acyclovir 5% topical blood-glucose sensor (FreeStyle Pa 3 Sensor device) As directed cholecalciferol (vitamin D3) mcg PO estradiol 2 mg PO DAILY levonorgestrel (Mirena) intrauterine vitamin B complex 1 tab PO DAILY zinc gluconate 50 mg PO DAILY Dental Screening Dental Screen Date: 05/24/24 Did you have a dental visit in the last 12 months?: Yes Did you have a dental problem in the last 6 months where you did not have access to dental care?: No Was dental information given to patient?: Patient has dentist HPI Establish Care HPI Details The patient is 58-year-old female presenting to establish care Previous PCP: [facility], in [place], [place] Last visit: Last PE: August 18, 2023 Specialist:Pain managment, rheumatology (Dr Wolfe) did nerve conduction, stenosis OBGYN: Past medical history: Arthritis of both shoulders, worse than right, lower back pain, appt steroid shots, stenosis of spine, wart growing out of left nose that keeps growing back (she had punch biopsy)-frozen off few times. Fibromyalgia Medications: Family HX: brothers kidney ca, brothers hld, father htn hld , maternal grandmother breast cancer at 61. Paternal Grand father heart attack, Problem: HLD- atorvastatin 20 mg stopped February -will check lipid panel in one month an advise ALT :35 AST:38 Would need PT referral FOR Lower back as well Already seeing PT for shoulder arthritis [facility] Medical History (Updated 05/26/24 @ 10:14 by BARBARA Robledo) Disc degeneration, lumbar Colon polyp Chickenpox Arthritis Surgical History (Updated 05/26/24 @ 07:59 by BARBARA Robledo) H/O colonoscopy [place] teeth removed History of biopsy H/O laser assisted in situ keratomileusis S/P bilateral breast reduction Family History (Updated 05/26/24 @ 08:03 by BARBARA Robledo) Maternal Grandmother Cancer Maternal Grandfather Heart attack Paternal Grandmother Stroke Father Diabetes type 2 Heart disease Mother Heart disease Brother Cancer of kidney Social History Household Members Other:: Daughter Housing: House Alcohol intake: current Alcohol intake frequency: a few times a week Patient Tobacco Use Status: Never used Tobacco service: No Current occupational status: employed 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 1. Little interest or pleasure in doing things: not at all 2. Feeling down, depressed, or hopeless: not at all 3. Trouble falling or staying asleep, or sleeping too much: not at all 4. Feeling tired or having little energy: not at all 5. Poor appetite or overeating: not at all 6. Feeling bad about yourself - or that you are a failure or have let yourself or your family down: not at all 7. Trouble concentrating on things, such as reading the newspaper or watching television: not at all 8. Moving or speaking so slowly that other people could have noticed. Or the opposite - being so fidgety or restless that you have been moving around a lot more than usual: not at all 9. Thoughts that you would be better off or of hurting yourself in some way: not at all Total score: 0 Depression Screening Interpretation: Negative Depression Screening Done: Yes 09111 - PHQ-9 Billing: Yes Source: Developed by Drs. William Ortiz, Aliyah Bartlett, Hussein Ann and colleagues, with an educational susie from [employer]. Thrive Questionnaire Date Thrive assessed: 05/24/24 I am a: Patient What is your living situation today?: I have a steady place to live Within the past 12 months, did the food you bought not last and you didn't have the money to get more?: Never true Within the past 12 months, did you worry whether your food would run out before you got money to buy more?: I choose not to answer this question Do you have trouble paying for medicines?: I choose not to answer this question Do you have trouble getting transportation to medical appointments?: I choose not to answer this question Do you have trouble paying your heating and electricity bill?: I choose not to answer this question Do you have trouble taking care of your child, family member or friend?: I choose not to answer this question Do you have trouble with day-to-day activities such as bathing, preparing meals, shopping, managing finances, etc.?: I choose not to answer this question Are you currently unemployed and looking for a job?: I choose not to answer this question Are you interested in more education?: I choose not to answer this question Please select the resources that you would like help with: None Currently or been in a relationship where the following occur: I choose not to answer THRIVE Score: 0 AUDIT C Alcohol Use Questionnaire (AUDIT-C) 1. How often do you have a drink containing alcohol?: 2-3 times a week 2. How many drinks containing alcohol do you have on a typical day when you are drinking?: 1 or 2 3. How often do you have six or more drinks on one occasion?: Never Total Score: 3 LOC-7 AMB Questionnaire LOC-7 Date LOC - 7 assessed: 05/24/24 Feeling nervous, anxious, or on edge: 0 = Not at all Not being able to stop or control worryin = Not at all Worrying too much about different things: 0 = Not at all Trouble relaxin = Not at all Being so restless that it is hard to sit still: 0 = Not at all Becoming easily annoyed or irritable: 0 = Not at all Feeling afraid as if something awful might happen: 0 = Not at all Total LOC-7 score (0-4 normal; 5-9 mild; 10-14 moderate; 15-21 severe): 0 Source: Developed by Drs. William Ortiz, Aliyah Bartlett, Hussein Ann and colleagues, with an educational susie from [employer]. LOC-7 Assessment Billing LOC-7 Assessment Tool: LOC-7 Assessment 44063 Review of Systems Const Denies headache(s) Eyes Denies loss of vision ENT Denies vertigo, Denies dizziness, Denies headache(s) and Denies sore throat Card Denies chest pain, Denies leg edema and Denies lightheadedness Resp Denies cough, Denies hemoptysis and Denies wheezing GI Denies abdominal pain, Denies melena, Denies constipation, Denies diarrhea and Denies vomiting Denies urinary frequency, Denies dysuria and Denies urinary urgency Musc Reports back pain, Reports myalgias, Reports arthralgias (bilateral shoulders and knees), Denies joint swelling, Reports muscle cramps, Denies numbness and Denies tingling Neuro Denies Abnormal speech present, Denies behavioral changes, Denies vertigo, Denies dizziness, Denies headache(s), Denies loss of vision, Denies memory loss, Denies numbness and Denies tingling Psych Denies anxiety, Denies behavioral changes, Denies depression, Denies memory loss and Denies panic attacks Juan Jose/Lymph Denies easy bleeding and Denies easy bruising Aller/Immun Denies wheezing Physical exam (Primary Care) Vital Signs: Last Vital Signs Temp 98.5 F 05/24/24 13:57 Pulse 69 05/24/24 13:57 Resp 16 05/24/24 13:57 BP 112/64 05/24/24 13:57 Pulse Ox 98 05/24/24 13:57 Oxygen Delivery Method Room Air 05/24/24 13:57 BMI result Body Mass Index 27.3 Tobacco/Smoking Status: Tobacco use Status Patient Tobacco Use Status Never used Tobacco 05/24/24 14:13 PHQ-9: PHQ-9 Score PHQ-9: Total score 0 05/24/24 14:30 Depression Screening Interpretation: Negative Thrive Assessment: Date of Thrive Assessment Date Thrive assessed 05/24/24 05/24/24 14:17 Currently or been in a relationship where the following occur: I choose not to answer Const General: healthy appearing, no acute distress, alert and awake Nutritional Appearance: well nourished Orientation/consciousness: oriented to person, oriented to place and oriented to time HENMT Ears: TM's normal bilaterally General nose exam: Normal nasal mucous membranes and turbinates present Eyes Conjunctivae: conjunctivae normal Sclerae: sclerae normal Pupils: Equal, round and reactive pupils present Neck Neck: Yes no lymphadenopathy and Yes no JVD Thyroid: Thyroid normal Carotids: no bruits Resp Effort & Inspection: normal respiratory effort and not tachypneic Auscultation: no crackles, no rales, no rhonchi and no wheezes Cardio Rate: regular rate Rhythm: regular rhythm Heart sounds: no murmurs and normal S1 and S2 GI Palpation (GI): Soft to palpation, nontender, no hepatomegaly and no splenomegaly Auscultation: normal bowel sounds Skin General skin exam: no rashes or lesions noted and dry skin Neuro General: oriented to person, oriented to place and oriented to time Cranial nerves: Yes Equal, round and reactive pupils present Speech: No Abnormal speech present Gait exam (Neuro): Normal gait present Motor exam (neuro): no tremor noted Extrem Right upper extremity: full ROM and shoulder/upper arm Details: tenderness Left upper extremity: full ROM and shoulder/upper arm Details: tenderness Right lower extremity: full ROM; no edema Left lower extremity: full ROM; no edema Psych Mental Status: mental status grossly normal Speech and movement: Normal speech and movement present Affect: normal affect Attitude: cooperative Thought process: Normal thought process present Coding Level of Care Code New Pt Level 4 (63108) Diagnoses Chronic bilateral low back pain, unspecified whether sciatica present M54.50; G89.29 Chronicity: chronic Back pain laterality: bilateral Sciatica presence: unspecified whether sciatica present Elevated liver enzymes R74.8 Pure hypercholesterolemia E78.00 Hyperlipidemia type: pure hypercholesterolemia Right shoulder pain, unspecified chronicity M25.511 Chronicity: unspecified Additional Codes LOC-7 Assessment Billing - LOC-7 Assessment Tool: LOC-7 Assessment 66438 ([id number]) PHQ-9 - 03715 - PHQ-9 Billing: Yes ([id number]) Time Spent (min) 40 Assessment & Plan Assessment & Plan (1) Lower back pain: Code(s): M54.50 - Low back pain, unspecified Category: Medical Qualifiers: Chronicity: chronic Back pain laterality: bilateral Sciatica presence: unspecified whether sciatica present Qualified Code(s): M54.50 - Low back pain, unspecified; G89.29 - Other chronic pain Plan: Ongoing low back-reports that she has an appt with PT this and she is not sure if she is going to need a referral or not. (2) Elevated liver enzymes: Code(s): R74.8 - Abnormal levels of other serum enzymes Category: Medical Plan: ALT :35 AST:38 Discussed with the patient the patient that her liver enzymes are slightly elevated and just might warrant monitoring but since she already stopped the atorvastatin in February-will check lipid panel in one month and advise (3) HLD (hyperlipidemia): Code(s): E78.5 - Hyperlipidemia, unspecified Category: Medical Qualifiers: Hyperlipidemia type: pure hypercholesterolemia Qualified Code(s): E78.00 - Pure hypercholesterolemia, unspecified Plan: HLD- atorvastatin 20 mg stopped February -will check lipid panel in one month and advise ALT :35 AST:38 reinforced low cholesterol diet and activity as tolerated (4) Right shoulder pain: Code(s): M25.511 - Pain in right shoulder Category: Medical Qualifiers: Chronicity: unspecified Qualified Code(s): M25.511 - Pain in right shoulder Plan: Continue PT Orders: Orders Comprehensive [place]. Panel Fast 1 Month E78.5 - Hyperlipidemia, unspecified, G62.9 - Polyneuropathy, unspecified, R74.8 - Abnormal levels of other serum enzymes TSH reflex Free T4 1 Month E78.5 - Hyperlipidemia, unspecified, G62.9 - Polyneuropathy, unspecified, R74.8 - Abnormal levels of other serum enzymes Vitamin D 25-OH Total 1 Month E78.5 - Hyperlipidemia, unspecified, G62.9 - Polyneuropathy, unspecified, R74.8 - Abnormal levels of other serum enzymes Glucose Fasting 1 Month E78.5 - Hyperlipidemia, unspecified, G62.9 - Polyneuropathy, unspecified, R74.8 - Abnormal levels of other serum enzymes Complete Blood Count Auto Diff 1 Month E78.5 - Hyperlipidemia, unspecified, G62.9 - Polyneuropathy, unspecified, R74.8 - Abnormal levels of other serum enzymes Lipid Panel 1 Month E78.5 - Hyperlipidemia, unspecified, G62.9 - Polyneuropathy, unspecified, R74.8 - Abnormal levels of other serum enzymes UA CC w/rflx Micro + Cult 1 Month E78.5 - Hyperlipidemia, unspecified, G62.9 - Polyneuropathy, unspecified, R74.8 - Abnormal levels of other serum enzymes Medications: Changed From acyclovir 400 mg PO DAILY To acyclovir 400 mg PO DAILY 30 days 30 tabs 3RF From acyclovir 400 mg PO DAILY 30 days 30 tabs 3RF To acyclovir 400 mg PO DAILY 90 days 90 tabs 4RF
== END 2024-05-24 15:05 | disposition home or self-care (01) ==
LOC: HO.HMCH 13:49
DX: M54.50 Low back pain, unspecified (principal); G89.29 Other chronic pain; R74.8 Abnormal levels of other serum enzymes; E78.00 Pure hypercholesterolemia, unspecified; M25.511 Pain in right shoulder

== ENCOUNTER → 2024-05-24 13:49 | Outpatient (BNVA) | payer BC, SELFPAY | DX: M54.50 Low back pain, unspecified (principal); G89.29 Other chronic pain; R74.8 Abnormal levels of other serum enzymes; E78.00 Pure hypercholesterolemia, unspecified; M25.511 Pain in right shoulder | CPT/HCPCS: 96127 ==

== ENCOUNTER 2024-06-10 10:08 | Outpatient (AMB) | payer BC, SELFPAY ==
--- NOTE | 2024-06-10 10:11 | A.OFFVIS_ITS ---
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 She has been experiencing lower back pain for the past 10 years, described as 7/10 in severity, with variability t hroughout the day. The pain radiates to both legs, more prominently on the left side, and worsens with walking. Various treatments tried include physical therapy, chiropractic manipulations, and a cortisone injection, which offered relief for a limited duration. The periscapular region pain has been chronic and was recently discussed as increasingly troublesome. This correlates with her occupation involving extended computer use. The patient has recently developed new onset shoulder pain, particularly affecting the left side, impacting her daily life. Formerly a smoker, she ceased this habit 29 years ago. Recent laboratory findings revealed elevated liver enzyme levels, prompting her to discontinue cholesterol medication. Follow-up on her liver function is underway. Pain Description - Lower back pain persists for 10 years, 7/10 intensity, worsening in the morning and with movement. - Pain radiates to both thighs, more so on the left. - Periscapular pain of 8/10 intensity, exacerbated with work-related computer use. - Recent new onset of shoulder pain, notably affecting activities. 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 - Impact on daily function includes difficulty sleeping, job performance, and mobility. Physical Exam - Musculoskeletal- Lumbar extension reproduces pain; forward bending causes discomfort; difficulty in rising up from sitting position. Pain Management - Affect: Pain is significantly affecting her quality of life and mood, leading to functional limitation. - Analgesia: Cortisone injections provided temporary relief. Restrictions due to liver enzyme abnormalities prevent typical analgesic use. - Adverse Effects: No medications currently due to liver function concerns. - Activities of Daily Living: Pain affects her sleep, work, and ability to walk long distances. - Aberrant Drug Related Behaviors: None reported or observed. [facility] Medical History (Updated 06/10/24 @ 10:46 by Kashif Barry MD) Disc degeneration, lumbar Colon polyp Chickenpox Arthritis Surgical History (Updated 05/26/24 @ 07:59 by BARBARA Robledo) H/O colonoscopy [place] teeth removed History of biopsy H/O laser assisted in situ keratomileusis S/P bilateral breast reduction Family History (Updated 05/26/24 @ 08:04 by BARBARA Robledo) Maternal Grandmother Cancer Maternal Grandfather Heart attack Paternal Grandmother Stroke Father Diabetes type 2 Heart disease Mother Heart disease Brother Cancer of kidney Social History Household Members Other:: Daughter Housing: House Alcohol intake: current Alcohol intake frequency: a few times a week Patient Tobacco Use Status: Never used Tobacco service: No Current occupational status: employed 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 Cognitive needs: No Hearing needs: No Vision needs: No Physical Exam Vital Signs: Last Vital Signs Pulse 78 06/10/24 10:13 Resp 16 06/10/24 10:13 BP 126/74 06/10/24 10:13 Pulse Ox 92 06/10/24 10:13 Oxygen Delivery Method Room Air 06/10/24 10:13 BMI result Body Mass Index 27.5 Assessment & Plan Assessment & Plan (1) Bilateral shoulder pain: Code(s): M25.511 - Pain in right shoulder; M25.512 - Pain in left shoulder Category: Medical (2) Lower back pain: Code(s): M54.50 - Low back pain, unspecified Category: Medical Qualifiers: Chronicity: chronic Back pain laterality: bilateral Sciatica presence: unspecified whether sciatica present Qualified Code(s): M54.50 - Low back pain, unspecified; G89.29 - Other chronic pain Plan Plan Plan includes arranging MRI imaging for her shoulders to investigate the potential pathology, particularly as the left side is predominantly affected. Following physical therapy completion, if shoulder issues persist, these images will aid in further planning. The patient is advised to contact [facility] for her prior low back MRI on disc to assess for furture interventions. Restrictions on typical analgesic use for pain control remain due to existing liver concerns, with alternative future options like PRP injections discussed depending on imaging outcomes. Monitoring of liver function will continue, with an intention to revisit therapy, both pharmacological and non-pharmacological, in subsequent appointments. Patient was informed and verbally consented to the use of an ambient scribe for clinic note documentation during this visit. Discussion Notes I discussed with the patient the likely diagnosis related to her ongoing structural pain and the need for shoulder imaging after completing the current physical therapy schedule. We reviewed the risk and side effects of cortisone versus PRP injections, clarifying there are no free credentials for PRP within most medical practices. We encountered barriers involving liver enzyme restrictions affecting pharmacological plans currently. I advised on obtaining previous back imaging and anticipated timely follow-ups for a comprehensive review of both back and shoulder conditions, stressing the importance of completed imaging studies and adherence to prescribed physical therapy. Patient Instructions - Contact radiology to schedule MRI for shoulder imaging. - Obtain a copy of previous lumbar spine MRI on disc from [facility]. - Continue physical therapy as scheduled; complete full 6-week course. - Abstain from certain pain medications as advised until further notice, await follow-up on liver function tests. - Follow up for review of MRI results, and physical therapy efficacy. - Contact the office if acute changes in symptoms or function occur. Orders: Orders MR shoulder LT wo con Today M25.511 - Pain in right shoulder, M25.512 - Pain in left shoulder MR shoulder RT wo con Today M25.511 - Pain in right shoulder, M25.512 - Pain in left shoulder Coding Level of Care Code New Pt Level 4 (74985) Diagnoses Bilateral shoulder pain M25.511; M25.512 Chronic bilateral low back pain, unspecified whether sciatica present M54.50; G89.29 Chronicity: chronic Back pain laterality: bilateral Sciatica presence: unspecified whether sciatica present
[2024-06-10 10:13] VITALS: BP 126/74; PULSE 78; RESP 16; O2SAT 92; BMI 27.5
--- OUTSIDE RECORDS SUMMARY | 2024-06-10 11:30 | XMS_ITS ---
Author Organization [facility] [email or web address] [facility] Address [address], [place] [id number] Care Team Providers Care Director Process Name Role Phone JON VAILFER Primary Care Provider VANNESSA WORRELL Unavailable [phone] ALLERGIES No Known Allergies REASON FOR VISIT [...] (10-19 cigs/day) Section Notes: Patient lives in [place], [place] with 2 daughters. VITAL SIGNS Height 68 in 03/13/2024 Height-cm 172.72 cm 03/13/2024 Encounters Encounter Location Date Provider Diagnosis [address] [place] [id number] 03/13/2024 VANNESSA WORRELL Viral illness B34.9 ASSESSMENTS [...] * CLIFFORD GONZALESOB: 6 (58 yo F)Acc No.[id number]:03/13/2024 Patient:??MARIE GONZALES Provider:??VANNESSA WORRELL NP :1965?Age:58 Y?Sex:Fe male Date:03/13/2024 Phone: Address:[address] [place] [address] [id number] Pcp:NATASHA VAIL Subjective: * Chief Complaints: * ? sick * HPI: ?Patient Care Team:?Progress Developer:??Progress Developer: Dr. Lauren.?.??Appliance Worker:??Lui Wells MA.?.??Orthopedic:???[facility].? Providers/Specialists: Urogynogologist: Dr. Saldivar [facility]: Dr. Waller Physiatry: Dr. Carr OBGYN: Aissatou Patton [place]. ?Visit info:? The patient consents to HIPAA [...] Yes, Daily 7-10. 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 ?Patient lives in [place], [place] with 2 daughters. * Medications:??TakingVitamin D [...] Shingrix Td/Tdap: UTD Hep A/Hep B: unknown GAS LEAK INSPECTOR: UTD SBE/Mammogram: UTD Eye Exam: Has Lasik Dental Exam: UTD Depression Scale: neg PHQ 9 Alcohol Misuse Screening: Neg Smoking Cessation: nonsmoker Screened HTN, diabetes, BMI addressed. * Follow Up:??2 - 3 Days (Reas on: swab/wellbeing) * Billing Information: * Visit Code:?? 91147 Office Visit, Est Pt., Level 3. * Procedure Codes:?? * Sign off status: Completed true * Provider:??VANNESSA WORRELL NP Date:?? History and Physical Notes * HPI (History of Present Illness) Category Sub-Category Detail Notes Category Not es Patient Care Team Progress Developer: Progress Developer: Dr. Bell. Providers/Specialist s: Urogynogologist: Dr. Saldivar [facility]: Dr. Waller Physiatry: Dr. Carr [facility] Appliance Worker: Lui Wells M A. Orthopedic: [facility] Examination Category Sub-Category Detail Notes Category Not es General Examination GEN: NAD, speaking in full complete sentences, thoughts clear and appropriate; mildly ill appearing RESP: nonlabored breathing, no audible SOB/Wheezing but loose cough NEURO: AO x 3 PSYCH: judgment/insight intact, NL mood/affect
--- OUTSIDE RECORDS SUMMARY | 2024-06-10 11:30 | XMS_ITS ---
Author Organization [facility] Address [address], [place] [id number] Care Team Providers Care Charge Master Coordinator Name Role Phone NATASHA VAIL Primary Care Provider [phone] VANNESSA WORRELL Unavailable [phone] REASON FOR VISIT Lab result request Encounters Encounter Location Date Provider Diagnosis [facility], [address] [phone] 03/25/2024 VANNESSA WORRELL PLAN OF TREATMENT No Information Progress Notes * CLIFFORD GNOZALESOB: 6 (58 yo F)Acc No.[id number]:03/25/2024 Patient:??MARIE GONZALES :1965?Age:58 Y?Sex:Fe male Phone: Address:[address] [place] [address] * true * Date:??
--- OUTSIDE RECORDS SUMMARY | 2024-06-10 11:30 | XMS_ITS | Patient Health Record ---
Author Organization [facility] Address [address], [place] [id number] Care Team Providers Care Waiter Name Role Phone NATASHA VAIL Primary Care Provider [phone] VANNESSA WORRELL Unavailable [phone] ALLERGIES No Known Allergies REASON FOR REFERRAL Reason please refer pt to [facility] [place] Low back pain Diagnosis 1 Lumbar radiculopathy (M54.16) Referral Organization [facility] Referring Provider First Name VANNESSA Referring Provider Last Name ANAID Referring Provider Speciality Preventive Medicine Referred Organization [facility] Referred Address [address], [place],[id number], Referred Provider Specialty Physical Med icine General Notes BRANDON DEVI 0 06/14/2023 10:24:05 AM >[facility] order completed and faxed to [phone] Referral Priority Routine Reason please refer pt to [facility] in [place] dx lumbar pain with radiculopathy Diagnosis 1 Lumbar radiculopathy (M54.16) Referral Organization [facility] Referring Provider First Name VANNESSA Referring Provider Last Name ANAID Referring Provider Speciality Preventive Medicine Referred Organization [facility] Referred Address [address], [place],[id number], Referred Provider Specialty Physical The rapist General Notes SHANDRA BRANDON 0 09/15/2023 08:55:42 AM >order and demographics faxed to [facility] [phone] Referral Priority Routine Reason please refer to [facility] for MRI LS spine due to persistent lumbar radiculopathy Diagnosis 1 Lumbar radiculopathy (M54.16) Referral Organization [facility] Referring Provider First Name VANNESSA Referring Provider Last Name ANAID Referring Provider Speciality Preventive Medicine Referred Organization [facility] Referred Address [address] [facility] [phone] Referred Provider Specialty Diagnostic R adiology General Notes BRANDON DEVI 0 11/15/2023 10:45:48 AM >order form, demographics, insurance info, order and office note faxed to [facility] [phone]. Insurance may request PT notes which does not look as though they are in our posession, BRANDON DEVI 12/22/2023 02:34:27 PM >order form refaxed to [facility] with corrected patient [phone] Referral Priority Routine Reason please refer pt to Abdulkadir Alexandre for MRI lumbar spine; does not want to use [facility] Diagnosis 1 Lumbar radiculopathy (M54.16) [facility] Referring Provider First Name VANNESSA Referring Provider Last Name [facility] Referring Provider Speciality Preventive Medicine Ref[facility] Referred Address [address] [place], [place] [id number], Referred Provider Specialty Diagnostic R adiology General Notes Irene Ty 12/31 11:53:02 AM >No PA needed per Ins. (please see attached doc.), Irene Ty 01/01/2024 12:09:45 PM >Please add PA - NA MRI document to faxed request., JACOB ALONZO 01/02/2024 08:37:40 AM > radiology Form, Referral, OV Note and Insurance information faxed to [facility] [phone], BRANDON DEVI 01/03/2024 02:39:53 PM >[facility] sent fax requesting auth Perry pereira's response to request stating no precertification is required has been faxed to [facility] [phone]. Advised facility to please proceed with scheduling patient Referral Priority Routine Reason please refer pt to Sergio Lopez and include both MRI from this month and MRI from 2 years ago TY resend- office advised patient that they never received referral or MRI report Appt booked for 05/07/24 at 11:00am with Diagnosis 1 Lumbar radiculopathy (M54.16) [facility] Referring Provider First Name VANNESSA Referring Provider Last Name ANAID Referring Provider Speciality Preventive Medicine [facility] Referred Address [address] [place], [place] [id number] Referred Provider Specialty Neurological Surgery General Notes BRANDON DEVI 1 04/18/2023 10:15:29 AM >appt request, demographics, insurance info, referral, office note, 2023 MRI, and 2021 MRI have been faxed to [facility] for Dr. Lopez [phone], BRANDON DEVI 03/14/2024 10:33:12 AM >Above info refaxed to [facility] for [phone] Referral Priority Routine MEDICATIONS Medication SIG (Take, Route, Frequency, Duration) Notes Start Date End Date Status Mirena (52 MG) 20 MCG/DAY as directed Intrauterine Act bulmaro Acyclovir 400 MG 1 tablet Orally Once a day for 90 days Active FreeStyle Pa 3 Sensor - change sensor every 2 weeks for 90 days 06/13/2023 Active FreeStyle Pa 3 Plus Sensor - as directed for 90 days 04/02/2024 Acti ve Pregabalin ER 330 MG 1 tablet after the evening meal Orally Once a day for 90 days 10/17/2023 Active Atorvastatin Calcium 20 MG 1 tablet Orally Once a day for 90 days Active Meloxicam 15 MG 1 tablet Orally Once a day Not-Taking Magnesium Glycinate 210mg Not-Taking Black Cohosh 540 MG as directed Orally 540mg Not-Taking Vitamin D 50 MCG (2000 UT) 1 capsule Orally Once a day Active Acyclovir 5 % 1 application every 3 hours Externally Six times a day for 5 days 11/28/2023 Active Estradiol 2 MG 1 tablet Orally Once a day Active Vitamin B Complex - as directed Orally Active SOCIAL HISTORY Tobacco Use: Social History [...] (10-19 cigs/day) Section Notes: Patient lives in [place], [place] with 2 daughters. Patient lives [place] with 2 daughters. Patient lives [place] with 2 daughters. Patient lives [place] with 2 daughters. Patient lives [place] with 2 daughters. Patient lives [place] 2 daughters. Patient lives [place] daughters. Patient lives [place]. Patient lives [place]. Patient lives [place] with 2 daughters. Patient lives [place] 2 daughters. Patient lives [place]. Patient lives [place] with 2 [place]. Patient lives [place] 2 daughters. Patient lives [place] with 2 daughters. Patient lives [place] with 2 daughters. 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 Patient lives [place] with 2 daughters. Patient lives [place] with 2 daughters. PROBLEMS Problem Type ICD Code Onset Dates Problem Status W/U Status Risk SNOMED Code Notes Problem Osteoarthritis, unspecified osteoarthritis type, unspecified site (M19.90) Active confirmed Osteoarthritis (717904079) Problem Other hyperlipidemia (E78.49) Active confirmed 37420330 Problem Vitamin D deficiency (E55.9) Active confirmed Vitamin D deficiency (95744622) Problem Elevated high sensitivity C-reactive protein (R79.82) Active confirmed 802340088577224 Problem Polyarthralgia (M25.50) Active confirmed 69587497 Problem Lumbar radiculopathy (M54.16) Active confirmed 495065307 Problem Herpes (B00.9) Active confirmed Herpes simplex viral infection (19716114) Problem Insulin resistance syndrome (E88.810) Active confirmed 511766588 Problem Fibromyalgia syndrome (M79.7) Active confirmed Fibromyalgi a (773769566) Problem Recurrent oral herpes simplex (B00.2) Active confirmed 966185764 VITAL SIGNS Heart Rate 77 /min 09/14/2023 Height-cm 172.72 cm 04/02/2024 Oximetry 96 % 09/14/2023 Blood pressure diastolic 68 mm Hg 09/14/2023 Weight-kg 77.29 kg 09/14/2023 Height 68 in 04/02/2024 Blood pressure systolic 102 mm Hg 09/14/2023 Weight 170.4 lbs 09/14/2023 BMI 25.91 kg/m2 09/14/2023 Encounters Encounter Location Date Provider Diagnosis [address] [id number] 08/18/2023 VANNESSA WORRELL [address] [id number] 09/19/2023 NATASHA VAIL Left shoulder pain, unspecified chronicity M25.[address] [id number] 10/03/2023 NATASHASHARON VAIL [address] [id number] 10/09/2023 NATASHA VAIL Left shoulder pain, unspecified chronicity M25.[address] [id number] 10/31/2023 NATASHA AVIL Bursitis of left shoulder M75.[address] [id number] 12/11/2023 NATASHA VAIL [address] [id number] 06/13/2023 VANNESSA WORRELL Hyperlipidemia, unspecified E78.5 ; Polyarthralgia M25.50 ; Insulin resistance syndrome E88.810 ; Impaired fasting glucose R73.01 ; Leukocytosis, unspecified type D72.829 ; Elevated sed rate (elev SR) R70.0 and Low back pain, unspecified M54.[address] [id number] 08/18/2023 VANNESSA WORRELL Polyarthralgia M25.5 0 ; Elevated high sensitivity C-reactive protein R79.82 ; Other hyperlipidemia E78.49 and Insulin resistance syndrome E88.[address] [id number] 09/14/2023 VANNESSA WORRELL Encounter for screening for malignant neoplasm of colon Z12.11 ; Polyarthralgia M25.50 ; Encounter for screening mammogram for malignant neoplasm of breast Z12.31 ; Encounter for screening for depression Z13.31 ; Screening for substance abuse Z13.89 ; Lumbar radiculopathy M54.16 ; Elevated high sensitivity C-reactive protein R79.82 ; Other hyperlipidemia E78.49 ; Insulin resistance syndrome E88.810 ; Recurrent oral herpes simplex B00.2 ; Fibromyalgia syndrome M79.7 ; Impaired fasting glucose R73.01 ; Vitamin D deficiency E55.9 ; Osteoarthritis, unspecified osteoarthritis type, unspecified site M19.90 and Pre-op evaluation Z01.[address] [id number] 09/29/2023 VANNESSA WORRELL Polyarthralgia M25.5 0 and Lumbar radiculopathy M54.[address] [id number] 10/17/2023 VANNESSA WORRELL Fibromyalgia syndrom e M79.7 and Polyarthralgia M25.[address] [id number] 11/14/2023 NATASHASHARON VAIL Bursitis of left shoulder M75.[address] [id number] 11/14/2023 VANNESSAARGENIS WORRELL Lumbar radiculopathy M54.16 ; Other hyperlipidemia E78.49 and Polyarthralgia M25.[address] [id number] 11/28/2023 NATASHA VAIL Herpes B00.9 and Bursitis of left shoulder M75.[address] [id number] 12/29/2023 VANNESSAARGENIS WORRELL Lumbar radiculopathy M54.16 ; Polyarthralgia M25.50 ; Vitamin D deficiency E55.9 ; Other hyperlipidemia E78.49 and Elevated high sensitivity C-reactive protein R79.[address] [id number] 02/13/2024 VANNESSAARGENIS WORRELL Lumbar radiculopathy M54.16 and Other hyperlipidemia E78.[address] [id number] 03/13/2024 VANNESSA WORRELL Viral illness B34.[address] [id number] 04/02/2024 VANNESSA WORRELL Other hyperlipidemia E78.49 and Elevated liver function tests R79.[address] [id number] 06/27/2023 VANNESSA WORRELL Rheumatoid factor positive R76.8 and Fibromyalgia syndrome M79.[address] [id number] 07/04/2023 VANNESSA WORRELL Fibromyalgia syndrom e M79.[address] [id number] 07/25/2023 VANNESSA WORRELL Rheumatoid factor positive R76.8 and Insulin resistance syndrome E88.[address] [id number] 09/18/2023 VANNESSA WORRELL [address] [id number] 03/25/2024 VANNESSA WORRELL ASSESSMENTS Encounter Date Diagnosis Assessment Notes Treatment [...] need to follow up with new provider 06/13/2023 Hyperlipidemia, unspecified (ICD-10 - E78.5) Discussed lowing lipid levels with diet as will not introduce statin at this time in addressing polyarthralgias Low inflammatory, Mediterranean diet Exercise as tolerated Control weight 06/13/2023 Polyarthralgia (ICD-10 - M25.50) Low back pain as well Continue with IF to decrease inflammation Exercise Noted all rheumatoid markers neg and sed rate also decreased Encouraged pt to trial duloxetine as still has not given it a chance and this was the rec of the linen manager as well and pt verbalilzing her frustration with pain PT for low back pain 03/13/2024 Viral illness (ICD-10 - B34.9) Question influenza vs RSV She is just outside of antiviral therapy and given her heartburn/burning upset this might make it worse She is to start Mucinex DM max BID x 5 days Tylenol/ibuprofen scheduled Increase fluids, Vit C, zinc, melatonin HS Will follow up Monday, prior if report is positive 02/13/2024 Lumbar radiculopathy (ICD-10 - M54.16) Pain persists despite mutiple treatment modalities Will refer to neurosurg along with current MRI and MRI from 2 years ago Noted she is also seeing rheumatology today for her polyarthralgia 12/29/2023 Lumbar radiculopathy (ICD-10 - M54.16) As in HPI, pt now choosing to go to [facility] for her MRI She continues to have polyarthralgia for which she said that Pregabalin was not working but evidently still taking it She complains that it makes her tired but continues to take it in the AM despite many times discussing when to take the med (HS once a day) as well as it states this on the bottle She is continuing with PT and reminded her that she needs to take an active role in her recovery at home as well She asked for a refill on pregabalin but read refills available 11/28/2023 Bursitis of left shoulder (ICD-10 - M75.52) We made a shared decision today to d/c ECSWT- it has not worked at all states she is in tremendous pain and is unable to perform some of the exercises she is prescribed in PT. She is very frustrated, really preferred not to have more meds wants a holistic approach She stopped the pregabalin-also not working . Very flat affect, chronic pain is depressing and she was validated today. We opted today for a steroid injection. She did get some benefit today in office likely d/t lidocaine in the injection but explained this would take up to 14 days to take full affect. She verbalized understanding. Will discuss further with PCP (MARISABEL) 11/28/2023 Herpes (ICD-10 - B00.9) Will send Rx again, states it was not received by pharmacy. She currently is not having an outbreak but would appreciate a topical non-systemic way to treat moving forward. Total time spent with patient 26 minutes which includes face to face visit, education and coordination of care. 11/14/2023 Bursitis of left shoulder (ICD-10 - M75.52) ECSWT applied for 1500 shocks at 20 mj and 60 mj at 11 hz, tolerated very well, will book 2 more treatments for a total of 7 treatments as today was #5 10/17/2023 Fibromyalgia syndrome (ICD-10 - M79.7) Noted improvement in physical symptoms Still continueing with nonpharmacologic means as well Will increase Lyrica to therapeutic dose and agreed on one-time nightly dose instead Will re-eval in 4 weeks 10/09/2023 Left shoulder pain, unspecified chronicity (ICD-10 - M25.512) shock wave applied at 1500 shocks to left bursa, tolerated well 09/29/2023 Polyarthralgia (ICD-10 - M25.50) Pt states she feels she is getting some relief after shock wave and IFC therapy She is to continue with the lyrica emphasizing need for BID dosing She is scheduled for repeat shock wave and is calling [facility] regarding getting the machine 11/14/2023 Lumbar radiculopathy (ICD-10 - M54.16) Will order MRI LS spine since she continues to have pain despite all discussed interventions in HPI 10/31/2023 Bursitis of left shoulder (ICD-10 - M75.52) applied 1500 ECSWT at 16 hz/40 mjs-tolerated well, does feel better after treatments but reports no significant lasting improvement. We discussed that a cortisone injection would be an option if this does not resolve the issue, she will consider 09/19/2023 Left shoulder pain, unspecified chronicity (ICD-10 - M25.512) applied ECSWT to tender point at insertion of left shoulder joint-utilized 11 hs and 20 mjs at 1500 shocks. Tolerated well, recommend she return in 5-7 days for the 5 sessions 09/14/2023 Encounter for screening for malignant neoplasm of colon (ICD-10 - Z12.11) Pt due for colonoscopy per pt according to her my chart at [facility] in 202509/14/2023 Polyarthralgia (ICD-10 - M25.50) Sigificant decrease in her inflammatory markers Was dx with fibromyalgia by rheumatology within the last 6 mo Failed Deloxetine due to nausea She [facility] so did not get the Analyzer test Will trial lyrica as she is having neuropathic pain in her left leg currently Will re-eval 2 weeks 08/18/2023 Polyarthralgia (ICD-10 - M25.50) Very concerned with her signiicant inflammatory markers She initially was requesting referral to Dr Pederson ([facility]) even though she already saw another linen manager there Shared decision making, decided that she would like to get the full analyzer test that [facility] offers first Will repeat markers She is also wondering about her magesium with muscle cramps 07/25/2023 Rheumatoid factor positive (ICD-10 - R76.8) 07/04/2023 Fibromyalgia syndrome (ICD-10 - M79.7) 06/27/2023 Rheumatoid factor positive (ICD-10 - R76.8) 06/27/2023 Fibromyalgia syndrome (ICD-10 - M79.7) 07/25/2023 Insulin resistance syndrome (ICD-10 - E88.810) 08/18/2023 Elevated high sensitivity C-reactive protein (ICD-10 - R79.82) Significant elevated CRP Gave her options through [facility] of curalieve a well She continues to follow a KETO diet pretty strictly with minimal inflammatory foods Will repeat level 09/14/2023 Encounter for screening mammogram for malignant neoplasm of breast (ICD-10 - Z12.31) Per pt UTD Also getting breast augmentation end of month 12/29/2023 Polyarthralgia (ICD-10 - M25.50) She has had improvement in her left shoulder pain with the cortisone injection She is still looking to obtain an IFC machine for which she has called the companies that her insurance is contracted with and they do not carry the unit Discussed payment plans available through [employer] if she wants to go that route 10/17/2023 Polyarthralgia (ICD-10 - M25.50) Polyarthralgias and myalgias Pt again sending over list of contracted placed to send IFC machine so she can use at home since [facility] was not covered under her plan 09/29/2023 Lumbar radiculopathy (ICD-10 - M54.16) Has apt with PT this month Tolerating Lyrica as well Will re eval in 3 weeks and possibly increase to therapeutic dose 11/14/2023 Other hyperlipidemia (ICD-10 - E78.49) Shared decision making, will start atorvastatin as she tolerated this well in past Still to continue healthy lifestyle choices Exercise as tolerated Weight control 02/13/2024 Other hyperlipidemia (ICD-10 - E78.49) She is to continue her statin Will recheck labs in Mar Continue with low fat diet Exercise Maintain healthy weight Noted pt is to go to [facility] to avoid high lab fees as we have the [facility]IQ panel that was explained to pt 06/13/2023 Insulin resistance syndrome (ICD-10 - E88.810) Pt encouraged to continue with IF She is also doing keto diet wwould like the CGM to help her monitor her blood sugars 06/13/2023 Impaired fasting glucose (ICD-10 - R73.01) This has resolved with recent blood work She has been int fasting as well 11/14/2023 Polyarthralgia (ICD-10 - M25.50) Will continue the Cymbalta at this time Re assess in 6 weeks 12/29/2023 Vitamin D deficiency (ICD-10 - E55.9) will recheck levels To take OTC 2000iu daily 09/14/2023 Encounter for screening for depression (ICD-10 - Z13.31) Neg PHQ9 08/18/2023 Other hyperlipidemia (ICD-10 - E78.49) Pt is interested in repeat levels since her significant weight loss Discussed higher fat component of keto Will hold off on statin until resulted Her exercise is limited due to her pain 08/18/2023 Insulin resistance syndrome (ICD-10 - E88.810) She has the pa and has been monitoring her blood sugars with improved levels Will repeat levels 09/14/2023 Screening for substance abuse (ICD-10 - Z13.89) Neg CAGE AID 12/29/2023 Other hyperlipidemia (ICD-10 - E78.49) Tolerating statin well Bro continue and recheck in about 3 months Make healthy food choices and continue with exercise and weight management 06/13/2023 Leukocytosis, unspecified type (ICD-10 - D72.829) Resolved wiht recent blood work 06/13/2023 Elevated sed rate (elev SR) (ICD-10 - R70.0) Noted no longer with increased sed rate but polyarthralgias persist Continue IF 12/29/2023 Elevated high sensitivity C-reactive protein (ICD-10 - R79.82) Hopefully has improved with statin therapy Continue low inflammatory diet Weight management 09/14/2023 Lumbar radiculopathy (ICD-10 - M54.16) Pt agreed to trial PT as well Declined repeat MRI at this time, will try meds and PT first With last steroid injection only lasted 1 mo 09/14/2023 Elevated high sensitivity C-reactive protein (ICD-10 - R79.82) Significant decrease to normal CRP now Discussed low inflammatory diet Maintain weights 06/13/2023 Low back pain, unspecified (ICD-10 - M54.50) Would like to try PT that offers dry needling/ Will refer to [facility] Pt has also been seeing [facility] for steroid injections but does not want to continue that 09/14/2023 Other hyperlipidemia (ICD-10 - E78.49) With lipoprotein a, apo B and lipid panel all abnormal, along with HLD since her 20's, emphasized need to address this Discussed doing IF with mediterranean diet instead of keto with high fat diet She is going to get her pain managed first with the lyrica then will start statin therapy Will most likely start within next 1 month 09/14/2023 Insulin resistance syndrome (ICD-10 - E88.810) Insulin levels have now normalized with her int IF Will continue to monitor Still does Pa as well 09/14/2023 Recurrent oral herpes simplex (ICD-10 - B00.2) Continue with antiviral therapy as ordered 09/14/2023 Fibromyalgia syndrome (ICD-10 - M79.7) Dx by rheumatology Pt has multiple areas of palpable tenderness over body will trial Lyrica for this and her radicular pain Will re eval in 2 weeks [facility] Response got Denied on 2023-09-14 14:02:15 for 'Pregabalin 75 MG Capsule'Pharmacy Notes: Request already responded to by other means (e.g. phone or fax). CANCEL REQUEST PREVIOUSLY PROCESSED [facility] Response got Denied on 2023-09-14 14:12:15 for 'DULoxetine HCl 30 MG Capsule Delayed Release Particles'Pharmacy Notes: Prescription not found. Contact Pharmacy by other means 09/14/2023 Impaired fasting glucose (ICD-10 - R73.01) This has resolved with recent blood work She has been int fasting as well 09/14/2023 Vitamin D deficiency (ICD-10 - E55.9) Will start on high dose vitamin D then resume daily 2000 iu once finished Continue to monitor periodically 09/14/2023 Osteoarthritis, unspecified osteoarthritis type, unspecified site (ICD-10 - M19.90) On xray per pt by rheumatology left shoulder and bilat knees Left shoulder pain Has full ROM but feels clicking and diffuse joint pain Does not take anything OTC Discussesd taking Tylenol arthritis TID Placed pt on IFC/TENS unit as well 09/14/2023 Pre-op evaluation (ICD-10 - Z01.818) ASA score 1; her chronic issues are at baseline, being addressed She is medically stable to receive her scheduled surgery this month 06/13/2023 Other Total time spen t with patient 32 minutes which includes face to face visit, education and coordination of care. 08/18/2023 Other Pt also interested in B complex supplement Sent all recommendations through [facility] 10/17/2023 Other Will most likely start the atorvatatin with next visit has been on past and tolerated well Note Rx for IFC machine faxed to [facility] 12/29/2023 Other Total time spen t with patient 32 minutes which includes face to face visit, education and coordination of care. 02/13/2024 Other Total time spen t with patient 20 minutes which includes face to face visit, education and coordination of care. 03/13/2024 Other Total time spen t with patient 20 minutes which includes face to face visit, education and coordination of care. Total time spent with patient 20 minutes which includes face to face visit, education and coordination of care. 04/02/2024 Other She is weaning off the pregabalin, declined suggestion of smaller dose because she does not want to pay for any more meds She is going to take QOD then every third, to oncea week until her current Rx is completed Will send over prescription for pa 3 plus Total time spent with patient 32 minutes which includes face to face visit, education and coordination of care. PLAN OF TREATMENT Pending Test Test Name Order Date MRI : Lumbar without contrast 11/14/2023 Future Test Test Name Order Date CARDIO IQ(R) LIPID PANEL (41697) 024 COMPREHENSIVE METABOLIC PANEL (40202) CBC (INCLUDES DIFF/PLT) (6399) CARDIO IQ(R) HS CRP (51674) 12/29/2023 CARDIO IQ(R) APOLIPOPROTEIN B (07855) CARDIO IQ(R) VITAMIN D, 25 HYDROXY (9173 5) 12/29/2023 Insurance Providers Payer Name Payer Address Payer Phone Subscriber Number Group Number Insured Name Patient Relationship to Insured Coverage Start Date Coverage End Date [facility] [address] [place] [address] [id number] MARIE GONZALES Self - patient is the insured MEDICAL (GENERAL) HISTORY Medical History History ICD Code Arthritis Chicken Pox as a child Colon Polyp Surgical History Surgery Date(Month/Year) Punch Biopsy of the nose (2) 2022 Scrapping of the tip of the left nostril 2021 Barnum Teeth Removed 1984 Breast Augmentation 2003 Colonoscopy 2016 MRI of lower back - compressed disc cart alidge thinning 2021 Lasik surgery 2020
--- OUTSIDE RECORDS SUMMARY | 2024-06-10 11:30 | XMS_ITS ---
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 Name Role Phone NATASHA VAIL Primary Care Provider VANNESSA WORRELL Unavailable [phone] REASON FOR VISIT f/u fasting labs MEDICATIONS [...] 04/02/2024 Encounters Encounter Location Date Provider Diagnosis [facility], [address] [id number] 04/02/2024 VANNESSA WORRELL Other hyperlipidemia E78.49 and [...] * CLIFFORD GONZALESOB: 6 (58 yo F)Acc No.[id number]:04/02/2024 Progress Note Patient:??MARIE GONZALES Provider:??VANNESSA WORRELL NP :1965?Age:58 Y?Sex:Fe male Date:04/02/2024 Phone: Address:[address] [place] [address] , [place], [id number] Pcp:NATASHA VAIL Subjective: * Chief Complaints: * [...] 04/19) * Billing Information: * Visit Code:?? 45367 Office Visit, Est Pt., Level 4. * [...]
--- OUTSIDE RECORDS SUMMARY | 2024-06-10 11:30 | XMS_ITS | Clinical Summary ---
Author Organization [facility] [address] [facility] [address] Address [address] [place] [address] Phone Care Team Providers Care Scientific Research Associate Name Role Phone Deya Mixon MD Primary Care Provider [phone] Allergies No known active allergies Medications estradioL (ESTRACE) 1 mg tablet Take 1 tablet (1 mg total) by mouth 1 (one) time each day. 4 Active estradioL (ESTRACE) 2 mg tablet Take [...] History Surgery Date Site/Laterality Comments BREAST REDUCTION - PROCEDURE: CO BREAST REDUCTION OTHER SURGICAL HISTORY 05/29/06 PROCEDURE: CO CRYOTHERAPY CO2 SLUSH LIQUID N2 ACNE; COMMENT: [...] Vaccine ( season) 2023 02/02/2021, 07/08/2020, 06/17/2020 Cervical Cancer Screening: HPV 04/01/2024 04/01/2019 Influenza Vaccine (Season Ended) 2024 12/07/2021, 01/12/2020, 12/23/2018, Additional history exists Colorectal Cancer Screening: Colonoscopy 04/22/2026 04/22/2016 Cholesterol [...] age to complete this topic Meningococcal B Vaccine Aged Out No l onger eligible based on patient's age to complete [...] l Result * Hepatitis C Screening (08/04/2021) Hepatitis C Screening Abstracted [facility] Provider HEALTH MAINTENANCE Final Result * Cervical Cancer Screening: HPV (04/01/2019) Pathologist [facility] Cervical Cancer Screening: HPV Negative, abstracted [facility] Provider HEALTH MAINTENANCE Final Result * Colonoscopy (04/22/2016) Pathologist [facility] Colonoscopy No interpretation , abstracted Anatomical Region Laterality Modality Other [facility] Provider HEALTH MAINTENANCE Final Result from Last 3 Months or Most Recently Relevant to Health Maintenance Insurance BLUE CROSS - [place] (ANTHE[place]) Care Teams Scientific Research Associate Relationship Specialty Start Date End Date Deya Mixon MD PCP - General 08/14/23
== END 2024-06-10 10:52 | disposition home or self-care (01) ==
LOC: HO.PMC 10:09
PROVIDERS: Referring Provider Neurological Surgery; Visit Provider Internal Medicine
DX: M25.511 Pain in right shoulder (principal); M25.512 Pain in left shoulder; M54.50 Low back pain, unspecified; G89.29 Other chronic pain
CPT/HCPCS: 99204

== ENCOUNTER → 2024-06-10 10:08 | Outpatient (BNVA) | payer BC, SELFPAY | PROVIDERS: Referring Provider Neurological Surgery; Visit Provider Internal Medicine ==

== ENCOUNTER → 2024-06-13 19:12 | Outpatient (BNV) | payer BC, SELFPAY | PROVIDERS: Visit Provider Radiology Diagnostic Radiology | DX: M75.102 Unspecified rotator cuff tear or rupture of left shoulder, not specified as traumatic (principal); M19.012 Primary osteoarthritis, left shoulder | CPT/HCPCS: 73221 ==

== ENCOUNTER 2024-06-13 19:13 | Outpatient (REF) | payer BC, SELFPAY ==
--- NOTE | ~2024-06-13 | MR_ITS ---
EXAMINATION: MR SHOULDER, LEFT CLINICAL INFORMATION: LEFT shoulder pain, nonresponsive to 6 weeks of PT. No injury. Patient complaining of crepitus and pain. COMPARISON: None TECHNIQUE: Multiplanar multisequence MR imaging of the LEFT shoulder was done without IV contrast. Examination performed on a 1.5 Makenna Siemens unit utilizing standard sequences. FINDINGS: Rotator Cuff and Biceps Tendon: Supraspinatus: There is a rim rent type tear of the anterior tendon arising from the medial aspect of the anterior footplate attachment, with tear measuring approximately 5 x 6 mm (series 9, image 16). Remainder of the tendon appears intact. There is tendinopathy of the tendon within the critical zone. There is no gross tendinous retraction. The muscle belly is normal. Infraspinatus: There is a partial insertional tear suspected of the bursal surface of the tendon, measuring approximately 9 mm in AP diameter (series 7, image 23), and measuring 4 mm in craniocaudad dimension. Remainder of the tendon appears intact and normal in signal with no tendinous retraction. There is a normal muscle belly. Subscapularis: There is approximately 30% undersurface tearing of the mid tendon with associated fraying suspected (series 7, image 16). This extends a length of approximately 8 mm (series 5, image 14). Remainder of the tendon is intact. The muscle belly has a normal appearance. Teres Minor: Intact and normal in signal. Normal muscle belly. Biceps Long Head: Normally located within the bicipital groove. Normal morphology. The tendon within the rotator interval has a normal morphology and signal. AC Joint and Acromiohumeral Arch: Mild arthritis of the AC joint with mild spurring of the both superiorly and inferiorly. No significant supraspinatus outlet stenosis. There is a type II acromion. There is no significant undersurface spurring. Glenohumeral Joint and Labrum: There is normal joint fluid. There are no full-thickness cartilaginous defects or regions of subchondral bone plate edema within the humeral head or glenoid. Minimal degenerative arthritis present with tiny undersurface spurs. No definite glenoid labral tear is appreciated. It appears intact grossly. Osseous Structures: No pathologic bone marrow signal or gross bone marrow edema. There are mild cortical cystic changes in the bare area of the humeral head. Spino-glenoid Notch: Normal. Quadrilateral Space: Normal. Other: Mild increased signal in the subacromial/subdeltoid bursa, consistent with mild bursitis. The glenohumeral ligaments are intact, normal in signal, without significant thickening. MR/MR shoulder LT wo con IMPRESSION: 1. Rim rent type tearing of the anterior supraspinatus tendon, and partial undersurface insertional tearing of the infraspinatus tendon. No full-thickness tear or tendinous retraction. 2. There is approximately 30% tearing and fraying of the subscapularis tendon undersurface. No full-thickness tear. 3. Minimal degenerative arthritis in the glenohumeral joint without cartilage abnormality or subchondral bone plate edema. No joint effusion. 4. Mild AC joint arthritis with minimal undersurface and superior surface spurring. No supraspinatus outlet stenosis. 5. The glenoid labrum appears grossly intact. Electronically signed by: Salomon Kenny MD 06/14/2024 10:58 AM EDT
== END 2024-06-13 19:14 | disposition home or self-care (01) ==
LOC: HO.MRI 19:13
PROVIDERS: Visit Provider Internal Medicine
DX: M25.511 Pain in right shoulder (principal); M25.512 Pain in left shoulder
CPT/HCPCS: 73221

== ENCOUNTER 2024-06-17 09:08 | Outpatient (REF) | payer BC, SELFPAY ==
--- OUTSIDE RECORDS SUMMARY | 2024-06-17 09:17 | XMS_ITS ---
Author Organization [facility] Address [address] [place], [place] [id number] Care Team Providers Care Quill Layer Name Role Phone JON VAILFER Primary Care Provider VANNESSA WORRELL Unavailable [phone] ALLERGIES No Known Allergies REASON FOR VISIT [...] (10-19 cigs/day) Section Notes: Patient lives in [place], [place] with 2 daughters. VITAL SIGNS Height 68 in 03/13/2024 Height-cm 172.72 cm 03/13/2024 Encounters Encounter Location Date Provider Diagnosis [address] [place] [id number] 03/13/2024 VANNESSA WORRELL Viral illness B34.9 ASSESSMENTS [...] * CLIFFORD GONZALESOB: 6 (58 yo F)Acc No.[id number]:03/13/2024 Patient:??MARIE GONZALES Provider:??VANNESSA WORRELL NP :1965?Age:58 Y?Sex:Fe male Date:03/13/2024 Phone: Address:[address] [place] [address] [id number] Pcp:NATASHA VAIL Subjective: * Chief Complaints: * ? sick * HPI: ?Patient Care Team:?Model Maker:??Model Maker: Dr. Lauren.?.??Data Analysis Manager:??Lui Wells MA.?.??Orthopedic:???[facility].? Providers/Specialists: Urogynogologist: Dr. Saldivar [facility]: Dr. Waller Physiatry: Dr. Carr OBGYN: Aissatou Patton [place]. ?Visit info:? The patient consents to HIPAA [...] Yes, Daily 7-10. 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 ?Patient lives in [place], [place] with 2 daughters. 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 * Follow Up:??2 - 3 Days (Reas on: swab/wellbeing) * Billing Information: * Visit Code:?? 22272 Office Visit, Est Pt., Level 3. * Procedure Codes:?? * Sign off status: Completed true * Provider:??VANNESSA WORRELL NP Date:?? History and Physical Notes * HPI (History of Present Illness) Category Sub-Category Detail Notes Category Not es Patient Care Team Model Maker: Model Maker: Dr. Bell. Providers/Specialist s: Urogynogologist: Dr. Saldivar [facility]: Dr. Waller Physiatry: Dr. Carr [facility] Data Analysis Manager: Lui Wells M A. Orthopedic: [facility] Examination Category Sub-Category Detail Notes Category Not es General Examination GEN: NAD, speaking in full complete sentences, thoughts clear and appropriate; mildly ill appearing RESP: nonlabored breathing, no audible SOB/Wheezing but loose cough NEURO: AO x 3 PSYCH: judgment/insight intact, NL mood/affect
--- OUTSIDE RECORDS SUMMARY | 2024-06-17 09:18 | XMS_ITS | Patient Health Record ---
Author Organization [facility] Address [address] [place], [place] [id number] Care Team Providers Care Stroboroma Operator Name Role Phone NATASHA VAIL Primary Care Provider VANNESSA WORRELL Unavailable [phone] ALLERGIES No Known Allergies REASON FOR REFERRAL Reason please refer pt to [facility] [place] dx lumbar pain with radiculopathy Diagnosis 1 Lumbar radiculopathy (M54.16) Referral Organization [facility] Referring Provider First Name VANNESSA Referring Provider Last Name ANAID Referring Provider Speciality Preventive Medicine Referred Organization [facility] Referred Address [address], [place],[id number], Referred Provider Specialty Physical The rapist General Notes BRANDON DEVI 0 09/15/2023 08:55:42 AM >order and demographics faxed to [facility] [phone] Referral Priority Routine Reason please refer to [facility] for MRI LS spine due to persistent lumbar radiculopathy Diagnosis 1 Lumbar radiculopathy (M54.16) Referral Organization [facility] Referring Provider First Name VANNESSA Referring Provider Last Name ANAID Referring Provider Speciality Preventive Medicine Referred Organization [facility] Referred Address [address], [place],[id number], Referred Provider Specialty Diagnostic R adiology General Notes BRANDON DEVI 0 11/15/2023 10:45:48 AM >order form, demographics, insurance info, order and office note faxed to [facility] [phone]. Insurance may request PT notes which does not look as though they are in our posession, BRANDON DEVI 12/22/2023 02:34:27 PM >order form refaxed to [facility] with corrected patient [phone] Referral Priority Routine Reason please refer pt to [facility] for MRI lumbar spine; does not want to use [facility] Diagnosis 1 Lumbar radiculopathy (M54.16) Referral Organization [facility] Referring Provider First Name VANNESSA Referring [facility] Referring Provider Speciality Preventive Medicine Referred Organization [facility] Referred Address [address] [place] [id number], Referred Provider Specialty Diagnostic R adiology General Notes Irene Ty 12/31 11:53:02 AM >No PA needed per Ins. (please see attached doc.), Irene Ty 01/01/2024 12:09:45 PM >Please add PA - NA MRI document to faxed request., JACOB ALONZO 01/02/2024 08:37:40 AM > radiology Form, Referral, OV Note and Insurance information faxed to [facility] [phone], BRANDON DEVI 01/03/2024 02:39:53 PM >[facility] sent fax requesting auth info, Perry's response to request stating no precertification is required has been faxed to [facility] [phone]. Advised facility to please proceed with scheduling patient Referral Priority Routine Reason please refer pt to [facility] and include both MRI from this month and MRI from 2 years ago TY resend- office advised patient that they never received referral or MRI report Appt booked for 05/07/24 at 11:00am with Diagnosis 1 Lumbar radiculopathy (M54.16) Referral Organization [facility] Referring Provider First Name VANNESSA Referring Provider Last Name [facility] Referring Provider Speciality Preventive Medicine Referred Organization [facility] Referred Address [address] [place] [id number] Referred Provider Specialty Neurological Surgery General Notes BRANDON DEVI 1 04/18/2023 10:15:29 AM >appt request, demographics, insurance info, referral, office note, 2023 MRI, and 2021 MRI have been faxed to [facility] for Dr. Lopez [phone], BRANDON DEVI 03/14/2024 10:33:12 AM >Above info refaxed to [facility] for [phone] Referral Priority Routine MEDICATIONS Medication SIG (Take, [...] Orally 540mg Not-Taking Vitamin D 50 MCG (1999 UT) 1 capsule Orally Once a day [...] (10-19 cigs/day) Section Notes: Patient lives in [place], [place] with 2 daughters. Patient lives [place] with 2 daughters. Patient lives [place] with 2 daughters. Patient lives [place] with 2 daughters. Patient lives [place] with 2 daughters. Patient lives [place] with 2 daughters. 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 Patient lives [place] with 2 daughters. Patient lives [place] with 2 [place]. Patient lives [place] 2 daughters. Patient lives [place]. Patient lives [place]. Patient [place] Patient [place]. Patient [place] daughters[place] Patient [place]. Patient lives [place]. Patient lives [place] with 2 daughters. Patient lives [place] with 2 daughters. PROBLEMS Problem Type ICD Code Onset Dates Problem Status W/U Status Risk SNOMED Code Notes Problem Osteoarthritis, unspecified osteoarthritis type, unspecified site (M19.90) Active confirmed Osteoarthritis (733429008) Problem Other hyperlipidemia (E78.49) Active confirmed 61109091 Problem Vitamin D deficiency (E55.9) Active confirmed Vitamin D deficiency (11527804) Problem Elevated high sensitivity C-reactive protein (R79.82) Active confirmed [id number] Problem Polyarthralgia (M25.50) Active confirmed 05241501 Problem Lumbar radiculopathy (M54.16) Active confirmed 396467491 Problem Herpes (B00.9) Active confirmed Herpes simplex viral infection (62752816) Problem Insulin resistance syndrome (E88.810) Active confirmed 335835034 Problem Fibromyalgia syndrome (M79.7) Active confirmed Fibromyalgi a (424240969) Problem Recurrent oral herpes simplex (B00.2) Active confirmed 170323420 VITAL SIGNS Heart Rate 77 /min 09/14/2023 Height-cm 172.72 cm 04/02/2024 Oximetry 96 % 09/14/2023 Blood pressure diastolic 68 mm Hg 09/14/2023 Weight-kg 77.29 kg 09/14/2023 Height 68 in 04/02/2024 Blood pressure systolic 102 mm Hg 09/14/2023 Weight 170.4 lbs 09/14/2023 BMI 25.91 kg/m2 09/14/2023 Encounters Encounter Location Date Provider Diagnosis [address] [place] [id number] 08/18/2023 VANNESSA WORRELL [address] [place] [id number] 09/19/2023 NATASHA VAIL Left shoulder pain, unspecified chronicity M25.512 [address] [place] [id number] 10/03/2023 NATASHA VAIL [address] [id number] 10/09/2023 NATASHA VAIL Left shoulder pain, unspecified chronicity M25.[address] [place], [place] [id number] 10/31/2023 NATASHA VAIL Bursitis of left shoulder M75.[address] [id number] 12/11/2023 NATASHA VAIL [address] [id number] 08/18/2023 VANNESSA WORRELL Polyarthralgia M25.5 0 ; Elevated high sensitivity C-reactive protein R79.82 ; Other hyperlipidemia E78.49 and Insulin resistance syndrome E88.[address] [id number] 09/14/2023 VANNESSA WORRELL Encounter for screening for [...] unspecified site M19.90 and Pre-op evaluation Z01.[address] [id number] 09/29/2023 VANNESSA WORRELL Polyarthralgia M25.5 0 and Lumbar radiculopathy M54.[address] [id number] 10/17/2023 VANNESSA WORRELL Fibromyalgia syndrom e M79.7 and Polyarthralgia M25.[address] [id number] 11/14/2023 NATASHA VAIL Bursitis of left shoulder M75.[address] [id number] 11/14/2023 VANNESSA WORRELL Lumbar radiculopathy M54.16 ; Other hyperlipidemia E78.49 and Polyarthralgia M25.[address] [id number] 11/28/2023 NATASHA VAIL Herpes B00.9 and Bursitis of left shoulder M75.[address] [id number] 12/29/2023 VANNESSAARGENIS WORRELL Lumbar radiculopathy M54.16 ; Polyarthralgia M25.50 ; Vitamin D deficiency E55.9 ; Other hyperlipidemia E78.49 and Elevated high sensitivity C-reactive protein R79.[address] [id number] 02/13/2024 VANNESSA WORRELL Lumbar radiculopathy M54.16 and Other hyperlipidemia E78.[address] [id number] 03/13/2024 VANNESSA WORRELL Viral illness B34.[address] [id number] 04/02/2024 VANNESSA OWRRELL Other hyperlipidemia E78.49 and Elevated liver function tests R79.[address] [id number] 06/27/2023 VANNESSA WORRELL Rheumatoid factor positive R76.8 and Fibromyalgia syndrome M79.[address] [id number] 07/04/2023 VANNESSA WORRELL Fibromyalgia syndrom e M79.[address] [id number] 07/25/2023 VANNESSA WORRELL Rheumatoid factor positive R76.8 and Insulin resistance syndrome E88.[address] [id number] 09/18/2023 VANNESSA WORRELL [address] [id number] 03/25/2024 VANNESSA WORRELL ASSESSMENTS Encounter Date Diagnosis Assessment Notes Treatment Notes Treatment Clinical Notes Section Notes 07/04/2023 Fibromyalgia syndrome (ICD-10 - M79.7) 07/25/2023 Rheumatoid factor positive (ICD-10 - R76.8) 06/27/2023 Rheumatoid factor positive (ICD-10 - R76.8) 08/18/2023 Polyarthralgia (ICD-10 - M25.50) Very concerned with her signiicant inflammatory markers She initially was requesting referral to Dr Pederson ([facility]) even though she already saw another wood scrap handler there Shared decision making, decided that she would like to get the full analyzer test that [facility] offers first Will repeat markers She is also wondering about her magesium with muscle cramps 09/14/2023 Encounter for screening for malignant neoplasm of colon (ICD-10 - Z12.11) Pt due for colonoscopy per pt according to her my chart at [facility] in 202509/14/2023 Polyarthralgia (ICD-10 - M25.50) Sigificant decrease in her inflammatory markers Was dx with fibromyalgia by rheumatology within the last 6 mo Failed Deloxetine due to nausea She did not go to [facility] for her blood work so did not get the Analyzer test Will trial lyrica as she is having neuropathic pain in her left leg currently Will re-eval 2 weeks 09/19/2023 Left shoulder pain, unspecified chronicity (ICD-10 - M25.512) applied ECSWT to tender point at insertion of left shoulder joint-utilized 11 hs and 20 mjs at 1500 shocks. Tolerated well, recommend she return in 5-7 days for the 5 sessions 09/29/2023 Polyarthralgia (ICD-10 - M25.50) Pt states she feels she is getting some relief after shock wave and IFC therapy She is to continue with the lyrica emphasizing need for BID dosing She is scheduled for repeat shock wave and is calling [facility] regarding getting the machine 10/09/2023 Left shoulder pain, unspecified chronicity (ICD-10 - M25.512) shock wave applied at 1500 shocks to left bursa, tolerated well 10/17/2023 Fibromyalgia syndrome (ICD-10 - M79.7) Noted improvement in physical symptoms Still continueing with nonpharmacologic means as well Will increase Lyrica to therapeutic dose and agreed on one-time nightly dose instead Will re-eval in 4 weeks 10/31/2023 Bursitis of left shoulder (ICD-10 - M75.52) applied 1500 ECSWT at 16 hz/40 mjs-tolerated well, does feel better after treatments but reports no significant lasting improvement. We discussed that a cortisone injection would be an option if this does not resolve the issue, she will consider 11/14/2023 Lumbar radiculopathy (ICD-10 - M54.16) Will order MRI LS spine since she continues to have pain despite all discussed interventions in HPI 11/14/2023 Bursitis of left shoulder (ICD-10 - M75.52) ECSWT applied for 1500 shocks at 20 mj and 60 mj at 11 hz, tolerated very well, will book 2 more treatments for a total of 7 treatments as today was #5 11/28/2023 Bursitis of left shoulder (ICD-10 - [...] visit, education and coordination of care. 02/13/2024 Lumbar radiculopathy (ICD-10 - M54.16) Pain persists despite mutiple treatment modalities Will refer to neurosurg along with current MRI and MRI from 2 years ago Noted she is also seeing rheumatology today for her polyarthralgia 03/13/2024 Viral illness (ICD-10 - B34.9) Question influenza vs RSV She is just outside of antiviral therapy and given her heartburn/burning upset this might make it worse She is to start Mucinex DM max BID x 5 days Tylenol/ibuprofen scheduled Increase fluids, Vit C, zinc, melatonin HS Will follow up Monday, prior if report is positive 04/02/2024 Other hyperlipidemia (ICD-10 - E78.49) Pt [...] need to follow up with new provider 12/29/2023 Lumbar radiculopathy (ICD-10 - M54.16) As in HPI, pt now choosing to go to [facility] for her MRI She continues to [...] refill on pregabalin but read refills available 02/13/2024 Other hyperlipidemia (ICD-10 - E78.49) She is to continue her statin Will recheck labs in [place] Continue with low fat diet Exercise Maintain healthy weight Noted pt is to go to [facility] to avoid high lab fees as we have the [facility]IQ panel that was explained to pt 12/29/2023 Polyarthralgia (ICD-10 - M25.50) She has had improvement in her left shoulder pain with the cortisone injection She is still looking to obtain an IFC machine for which she has called the companies that her insurance is contracted with and they do not carry the unit Discussed payment plans available through [employer] if she wants to go that route 11/14/2023 Other hyperlipidemia (ICD-10 - E78.49) Shared decision making, will start atorvastatin as she tolerated this well in past Still to continue healthy lifestyle choices Exercise as tolerated Weight control 10/17/2023 Polyarthralgia (ICD-10 - M25.50) Polyarthralgias and myalgias Pt again sending over list of contracted placed to send IFC machine so she can use at home since [facility] was not covered under her plan 09/29/2023 Lumbar radiculopathy (ICD-10 - M54.16) Has apt with PT this month Tolerating Lyrica as well Will re eval in 3 weeks and possibly increase to therapeutic dose 09/14/2023 Encounter for screening mammogram for malignant neoplasm of breast (ICD-10 - Z12.31) Per pt UTD Also getting breast augmentation end of month 08/18/2023 Elevated high sensitivity C-reactive protein (ICD-10 - R79.82) Significant elevated CRP Gave her options through [facility] of curalieve a well She continues to follow a KETO diet pretty strictly with minimal inflammatory foods Will repeat level 06/27/2023 Fibromyalgia syndrome (ICD-10 - M79.7) 07/25/2023 Insulin resistance syndrome (ICD-10 - E88.810) 08/18/2023 Other hyperlipidemia (ICD-10 - E78.49) Pt is interested in repeat levels since her significant weight loss Discussed higher fat component of keto Will hold off on statin until resulted Her exercise is limited due to her pain 09/14/2023 Encounter for screening for depression (ICD-10 - Z13.31) Neg PHQ9 11/14/2023 Polyarthralgia (ICD-10 - M25.50) Will continue the Cymbalta at this time Re assess in 6 weeks 12/29/2023 Vitamin D deficiency (ICD-10 - E55.9) will recheck levels To take OTC 2000iu daily 12/29/2023 Other hyperlipidemia (ICD-10 - E78.49) Tolerating statin well Bro continue and recheck in about 3 months Make healthy food choices and continue with exercise and weight management 09/14/2023 Screening for substance abuse (ICD-10 - Z13.89) Neg CAGE AID 08/18/2023 Insulin resistance syndrome (ICD-10 - E88.810) She has the pa and has been monitoring her blood sugars with improved levels Will repeat levels 09/14/2023 Lumbar radiculopathy (ICD-10 - M54.16) Pt agreed to trial PT as well Declined repeat MRI at this time, will try meds and PT first With last steroid injection only lasted 1 mo 12/29/2023 Elevated high sensitivity C-reactive protein (ICD-10 - R79.82) Hopefully has improved with statin therapy Continue low inflammatory diet Weight management 09/14/2023 Elevated high sensitivity C-reactive protein (ICD-10 - R79.82) Significant decrease to normal CRP now Discussed low inflammatory diet Maintain weights 09/14/2023 Other hyperlipidemia (ICD-10 - E78.49) With [...] to receive her scheduled surgery this month 08/18/2023 Other Pt also interested in B complex supplement Sent all recommendations through [facility] 10/17/2023 Other Will most likely start the atorvatatin with next visit has been on past and tolerated well Note Rx for IFC machine faxed to [facility] 12/29/2023 Other Total time spen t with [...] Name Order Date CARDIO IQ(R) LIPID PANEL (41267) 024 COMPREHENSIVE METABOLIC PANEL (93586) CBC (INCLUDES DIFF/PLT) (6399) 4 CARDIO IQ(R) HS CRP (14232) 12/29/2023 CARDIO IQ(R) APOLIPOPROTEIN B (34020) CARDIO IQ(R) VITAMIN D, 25 HYDROXY (9173 5) 12/29/2023 Insurance Providers Payer Name Payer Address Payer Phone Subscriber Number Group Number Insured Name Patient Relationship to Insured Coverage Start Date Coverage End Date [employer] [address] [place] [phone] [id number] DIANNEREAGAN MARIE Self - patient is the insured MEDICAL (GENERAL) HISTORY Medical History History ICD Code Arthritis Chicken Pox as a child Colon Polyp Surgical History Surgery Date(Month/Year) Punch Biopsy of the nose (2) 2022 Scrapping of the tip of the left nostril 2021 [place] Teeth Removed 1983 Breast Augmentation 2003 Colonoscopy 2015 MRI of lower back - compressed disc cart alidge thinning 2021 Lasik surgery 2020
--- OUTSIDE RECORDS SUMMARY | 2024-06-17 09:18 | XMS_ITS | Clinical Summary ---
Author Organization [facility] [address] [facility] lding Address [address] [place] [address] Phone Care Team Providers Care Stained Glass Painter Name Role Phone Deya Mixon MD Primary Care Provider [phone] Allergies No known active allergies Medications estradioL [...] Date Site/Laterality Comments BREAST REDUCTION - PROCEDURE: [place] BREAST REDUCTION OTHER SURGICAL HISTORY 05/29/06 PROCEDURE: VT CRYOTHERAPY CO2 SLUSH LIQUID N2 ACNE; COMMENT: [...] Screening (08/04/2021) Hepatitis C Screening Abstracted [facility] Provider HEALTH MAINTENANCE Final Result * Cervical Cancer Screening: HPV (04/01/2019) Pathologist [facility] Cervical Cancer Screening: HPV Negative, abstracted [facility] Provider HEALTH MAINTENANCE Final Result * Colonoscopy (04/22/2016) Pathologist [facility] Colonoscopy No interpretation , abstracted Anatomical Region Laterality Modality Other [facility] Provider HEALTH MAINTENANCE Final Result from Last 3 Months or Most Recently Relevant to Health Maintenance Insurance [place]) Care Teams Stained Glass Painter Relationship Specialty Start Date End Date Deya Mixon MD PCP - General 08/14/23
--- OUTSIDE RECORDS SUMMARY | 2024-06-17 09:18 | XMS_ITS ---
Author Organization [facility] Address [address], [place] [id number] Care Team Providers Care Side Piece Coverer Name Role Phone NATASHA VAIL Primary Care Provider [phone] VANNESSA WORRELL Unavailable [phone] REASON FOR VISIT Lab result request Encounters Encounter Location Date Provider Diagnosis [facility], [address] [id number] 03/25/2024 VANNESSA WORRELL PLAN OF TREATMENT No Information Progress Notes * CLIFFORD GONZALESOB: 6 (58 yo F)Acc No.[id number]:03/25/2024 Patient:??MARIE GONZALES :1965?Age:58 Y?Sex:Fe male Phone: Address:[address] [place] [address] * true * Date:??
--- OUTSIDE RECORDS SUMMARY | 2024-06-17 09:18 | XMS_ITS ---
Author Organization [facility] Address [address] [place] [id number] Care Team Providers Care Low Pressure Firer Name Role Phone NATASHA VAIL Primary Care Provider VANNESSA WORRELL Unavailable [phone] REASON FOR VISIT f/u fasting labs MEDICATIONS [...] 04/02/2024 Encounters Encounter Location Date Provider Diagnosis [facility], [address] [id number] 04/02/2024 VANNESSA WORRELL Other hyperlipidemia E78.49 and [...] * CLIFFORD GONZALESOB: 6 (58 yo F)Acc No.[id number]:04/02/2024 Progress Note Patient:??MARIE GONZALES Provider:??VANNESSA WORRELL NP :1965?Age:58 Y?Sex:Fe male Date:04/02/2024 Phone: Address:[address] [place] [address] , [id number] Pcp:NATASHA VAIL Subjective: * Chief Complaints: * [...] 04/19) * Billing Information: * Visit Code:?? 54699 Office Visit, Est Pt., Level 4. * [...]
[2024-06-17 09:26] LABS: MANUAL DIFF FLAG NO
[2024-06-17 10:00] LABS: Basophils Absolute Auto 0.1 X10*3/uL (0.0-0.2); Basophils Percent Auto 0.9 % (0-2); Eosinophils Absolute Auto 0.2 X10*3/uL (0.0-0.4); Eosinophils Percent Auto 2.4 % (0-4); Hematocrit 38.7 % (37.0-47.0); Imm Gran Abs Auto 0.03 X10*3/uL (0.00-0.03); Imm Gran Pct Auto 0.4 % (0.0-0.4); Lymphocytes Absolute Auto 1.9 X10*3/uL (1.2-4.9); Lymphocytes Percent Auto 25.1 % (20-40); Mean Corpuscular HGB Conc 33.6 g/dl (31.0-35.0); Mean Corpuscular Hemoglobin 31.7 pg (27.0-33.0); Mean Corpuscular Volume 94.4 fL (80.0-98.0); Mean Platelet Volume 9.9 fL (9.4-12.3); Monocytes Absolute Auto 0.7 X10*3/uL (0.1-1.2); Monocytes Percent Auto 9.1 % (2-11); Neutrophils Absolute Auto 4.7 x10*3/uL (2.0-8.3); Neutrophils Percent Auto 62.1 % (45-73); Platelet Count 219 X10*3/uL (160-400); Red Cell Distribution Width 12.7 % (11.0-16.0); White Blood Count 7.6 X10*3/uL (4.8-10.8)
[2024-06-17 10:16] LABS: Appearance Urine Clear; Color Urine Yellow; Glucose Urine UA Negative (Negative); Leukocyte Esterase Urine Negative (Negative); Nitrite Urine Negative (Negative); Urine Blood Negative (Negative); Urine Ketones Negative (Negative); Urine Protein Negative (Neg-Trace)
[2024-06-17 10:49] LABS: Alanine Aminotransferase 16 U/L (0-31); Alkaline Phosphatase 50 U/L (39-117); Anion Gap 13 (12-20); Aspartate Amino Transferase 20 U/L (5-31); Bilirubin Total 0.4 mg/dL (0.0-1.0); Blood Urea Nitrogen 15 mg/dL (9-16); Calcium 9.1 mg/dL (8.4-10.2); Carbon Dioxide 27 mmol/L (22-29); Chloride 106 mmol/L (96-108); Cholesterol 258 mg/dL (<200); Estimated Glomerular Filt Rate > 60; Glucose Fasting 101 mg/dL (60-99); HDL Cholesterol 77 mg/dL (>40); LDL Cholesterol Calculated 159 mg/dL (<100); Potassium 4.5 mmol/L (3.3-5.1); Sodium 141 mmol/L (135-145); Total Protein 6.8 g/dL (6.5-8.0); Triglycerides 114 mg/dL (<150)
[2024-06-17 10:56] LABS: TSH reflex Free T4 2.29 uIU/mL (0.32-4.0); Vitamin D 25-OH Total 55.6 ng/mL (>30)
== END 2024-06-17 09:09 | disposition home or self-care (01) ==
LOC: HO.LAB 09:08
DX: G62.9 Polyneuropathy, unspecified (principal); E78.5 Hyperlipidemia, unspecified; R74.8 Abnormal levels of other serum enzymes
CPT/HCPCS: 36415; 80053; 80061; 81003; 82306; 84443; 85025

== ENCOUNTER 2024-06-19 10:00 | Outpatient (AMB) | payer BC, SELFPAY ==
--- NOTE | 2024-06-19 10:01 | A.OFFVIS_ITS ---
Vital Signs 06/19/24 10:02 Height 5 ft 8 in Weight 183 lb BMI 27.8 BP 137/64 Blood Pressure Location Lt brachial Position Sitting Respiration 16 Pulse 69 Pulse Source Pulse Oximeter Pulse Oximetry (%) 100 Oxygen Delivery Method Room Air Intake Visit Reasons: MRI FOLLOW UP Allergies No Known Allergies Allergy (Verified 06/19/24 10:03) Medication List - Last Reconciled 06/19/24 by Karly Bee LPN acyclovir 5% topical acyclovir 400 mg PO DAILY 90 days blood-glucose sensor (FreeStyle Pa 3 Sensor device) As directed cholecalciferol (vitamin D3) mcg PO estradiol 2 mg PO DAILY levonorgestrel (Mirena) intrauterine vitamin B complex 1 tab PO DAILY zinc gluconate 50 mg PO DAILY HPI HPI MRI FOLLOW UP: Details: History of Present Illness The patient is a 58-year-old female presenting with lumbar radicular pain. She has a history of back pain radiating to her bilateral lateral legs, especially intense upon waking in the morning and aggravated by activities such as movement or prolonged standing. MRI findings indicate Modic Type 1 Changes at L3-4 and L4-5 and partial sacralization of L5 with an incomplete L5-S1 disc, potentially contributing to her symptoms. In February, she received a cortisone injection, which provided temporary relief. Her recent shoulder MRI showed three partial tears in the rotator cuff, including a partial surface tear of the supraspinatus tendon. She has attempted physical therapy and uses an inversion table as part of her management strategy. Pain Description - Onset/Timing: Long-standing lower back pain with radiation - Quality/Character: Aching pain in the lower back - Primary Location: Lumbar region with radiation to legs - Radiation: Bilateral lateral legs - Exacerbating Factors: Movement, walking, prolonged standing - Relieving Factors: Sitting and resting - Interference: Pain worsens significantly upon waking, affects daily activities and prolonged standing tasks Physical Exam - Appears afebrile. - Alert and oriented. - Mood and affect appropriate. - Follows and participates in conversation appropriately. - Respiratory effort is unlabored. - Able to transition from sit to stand unassisted. Results - MRI: Modic Type 1 Changes at L3-4 and L4-5, partial sacralization of L5 with rudimentary L5-S1 disc - MRI (Shoulder): Three partial tears in the rotator cuff, including partial tear of the supraspinatus tendon Pain Management - Affect: Pain impacts daily activities and is especially difficult in the morning - Analgesia: Cortisone injection provided temporary pain relief for a month - Adverse Effects: No adverse effects from cortisone injection reported - Activities of Daily Living: Pain interferes with prolonged standing and daily tasks - Aberrant Drug Related Behaviors: None reported [facility] Medical History (Updated 06/25/24 @ 16:49 by Kashif Barry MD) Disc degeneration, lumbar Colon polyp Chickenpox Arthritis Surgical History (Updated 05/26/24 @ 07:59 by BARBARA Robledo) H/O colonoscopy [place] teeth removed History of biopsy H/O laser assisted in situ keratomileusis S/P bilateral breast reduction Family History (Updated 05/26/24 @ 08:04 by BARBARA Robledo) Maternal Grandmother Cancer Maternal Grandfather Heart attack Paternal Grandmother Stroke Father Diabetes type 2 Heart disease Mother Heart disease Brother Cancer of kidney Social History Household Members Other:: Daughter Housing: House Alcohol intake: current Alcohol intake frequency: a few times a week Patient Tobacco Use Status: Never used Tobacco service: No Current occupational status: employed 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 Cognitive needs: No Hearing needs: No Vision needs: No Physical Exam Vital Signs: Last Vital Signs Pulse 69 06/19/24 10:02 Resp 16 06/19/24 10:02 BP 137/64 06/19/24 10:02 Pulse Ox 100 06/19/24 10:02 Oxygen Delivery Method Room Air 06/19/24 10:02 BMI result Body Mass Index 27.8 Assessment & Plan Assessment & Plan (1) Lumbar radiculopathy: Code(s): M54.16 - Radiculopathy, lumbar region Category: Medical (2) Rotator cuff tear, left: Code(s): M75.102 - Unspecified rotator cuff tear or rupture of left shoulder, not specified as traumatic Category: Medical Plan Plan - Recommend repeat cortisone injection (interlaminar SCOTT) possibly at a reduced dose for back pain. - Review L-spine MRI images for further evaluation. - Discuss potential alternative treatments for spine and shoulder. - Consult orthopedics regarding surgical options for rotator cuff tears. - Suggest compression stockings for venous discomfort. Patient was informed and verbally consented to the use of an ambient scribe for clinic note documentation during this visit. Discussion Notes During the consultation, I informed the patient about her MRI findings and discussed treatment options for her lumbar pain, including another cortisone injection and alternative therapies like nerve stimulation or ablation. We reviewed the possibility of PRP therapy for her shoulder condition, given the partial tears. I advised the patient on managing venous reflux symptoms with compression stockings. I also explained that further review of her imaging would help refine the treatment plan. The patient expressed a willingness to utilize these modalities to improve her symptoms and agreed to follow up for treatment updates. Patient Instructions - Follow up with recommended cortisone injection to manage back pain. - Consider wearing mild compression stockings to manage leg discomfort. - Review the informational brochures provided for possible future procedures. - Plan for orthopedic consultation regarding shoulder pain management. - Monitor symptoms and inform us if there are any significant changes or concerns. Coding Level of Care Code Est Pt Level 4 (16701) Diagnoses Lumbar radiculopathy M54.16 Rotator cuff tear, left M75.102
[2024-06-19 10:02] VITALS: BP 137/64; PULSE 69; RESP 16; O2SAT 100; BMI 27.8
--- OUTSIDE RECORDS SUMMARY | 2024-06-19 11:26 | XMS_ITS ---
Author Organization [facility] Address [address] [place], [place] [id number] Care Team Providers Care Hris Analyst Name Role Phone JON VAILFER Primary Care Provider [phone] VANNESSA WORRELL Unavailable [phone] ALLERGIES No Known Allergies REASON FOR VISIT [...] (10-19 cigs/day) Section Notes: Patient lives in [place], [place] with 2 daughters. VITAL SIGNS Height 68 in 03/13/2024 Height-cm 172.72 cm 03/13/2024 Encounters Encounter Location Date Provider Diagnosis [address] [place] [id number] 03/13/2024 VANNESSA WORRELL Viral illness B34.9 ASSESSMENTS [...] * CLIFFORD GONZALESOB: 6 (58 yo F)Acc No.[id number]:03/13/2024 Patient:??MARIE GONZALES Provider:??VANNESSA WORRELL NP :1965?Age:58 Y?Sex:Fe male Date:03/13/2024 Phone: Address:[address] [place] [address] [id number] Pcp:NATASHA VAIL Subjective: * Chief Complaints: * ? sick * HPI: ?Patient Care Team:?Chalk Cutter:??Chalk Cutter: Dr. Lauren.?.??Office Administrator:??Lui Wells MA.?.??Orthopedic:???[facility].? Providers/Specialists: Urogynogologist: Dr. Saldivar [facility]: Dr. Waller Physiatry: Dr. Carr OBGYN: Aissatou Patton [place]. ?Visit info:? The patient consents to HIPAA [...] Yes, Daily 7-10. ?Miscellaneous:??Occupation: Works as a [employer] at [employer]. ?Patient lives in [place], [place] with 2 daughters. * Medications:??TakingVitamin D [...] Shingrix Td/Tdap: UTD Hep A/Hep B: unknown PROVIDER SERVICE REPRESENTATIVE: UTD SBE/Mammogram: UTD Eye Exam: Has Lasik Dental Exam: UTD Depression Scale: neg PHQ 9 Alcohol Misuse Screening: Neg Smoking Cessation: nonsmoker Screened HTN, diabetes, BMI addressed. * Follow Up:??2 - 3 Days (Reas on: swab/wellbeing) * Billing Information: * Visit Code:?? 80990 Office Visit, Est Pt., Level 3. * Procedure Codes:?? * Sign off status: Completed true * Provider:??VANNESSA WORRELL NP Date:?? History and Physical Notes * HPI (History of Present Illness) Category Sub-Category Detail Notes Category Not es Patient Care Team Chalk Cutter: Chalk Cutter: Dr. Bell. Providers/Specialist s: Urogynogologist: Dr. Saldivar [facility]: Dr. Waller Physiatry: Dr. Carr [facility] Office Administrator: Lui Wells M A. Orthopedic: [facility] Examination Category Sub-Category Detail Notes Category Not es General Examination GEN: NAD, speaking in full complete sentences, thoughts clear and appropriate; mildly ill appearing RESP: nonlabored breathing, no audible SOB/Wheezing but loose cough NEURO: AO x 3 PSYCH: judgment/insight intact, NL mood/affect
--- OUTSIDE RECORDS SUMMARY | 2024-06-19 11:27 | XMS_ITS ---
Author Organization [facility], [facility] Address [address] [place], [place] [id number] Care Team Providers Care Airplane Electrician Name Role Phone NATASHA VAIL Primary Care Provider VANNESSA WORRELL Unavailable [phone] REASON FOR VISIT Lab result request Encounters Encounter Location Date Provider Diagnosis [facility], [address] [phone] 03/25/2024 VANNESSA WORRELL PLAN OF TREATMENT No Information Progress Notes * CLIFFORD GONZALESOB: 6 (58 yo F)Acc No.[id number]:03/25/2024 Patient:??MARIE GONZALES :1965?Age:58 Y?Sex:Fe male Phone: Address:[address] [place] [address] * true * Date:??
--- OUTSIDE RECORDS SUMMARY | 2024-06-19 11:27 | XMS_ITS | Clinical Summary ---
Author Organization [facility] [address] [facility] [address] Address [address] [place] [address] Phone Care Team Providers Care Russian Language Instructor Name Role Phone Deya Mixon MD Primary Care Provider [phone] Allergies No known active allergies Medications estradioL [...] Date Site/Laterality Comments BREAST REDUCTION - PROCEDURE: AL BREAST REDUCTION OTHER SURGICAL HISTORY 05/29/06 PROCEDURE: AL CRYOTHERAPY CO2 SLUSH LIQUID N2 ACNE; COMMENT: [...] Unknown us Historical Provider LAB BLOOD ORDERABLES [place] l Result * Hepatitis C Screening (08/04/2021) Hepatitis C Screening Abstracted [facility] Provider HEALTH MAINTENANCE Final Result * Cervical Cancer Screening: HPV (04/01/2019) Pathologist [facility] Cervical Cancer Screening: HPV Negative, abstracted [facility] Provider HEALTH MAINTENANCE Final Result * Colonoscopy (04/22/2016) Pathologist [facility] Colonoscopy No interpretation , abstracted Anatomical Region Laterality Modality Other [facility] Provider HEALTH MAINTENANCE Final Result from Last 3 Months or Most Recently Relevant to Health Maintenance Insurance [place] ([place]) Care Teams Russian Language Instructor Relationship Specialty Start Date End Date Deya Mixon MD PCP - General 08/14/23
--- OUTSIDE RECORDS SUMMARY | 2024-06-19 11:27 | XMS_ITS | Patient Health Record ---
Author Organization [facility] Address [address], [place] [id number] Care Team Providers Care Quality Internship Name Role Phone NATASHA VAIL Primary Care Provider VANNESSA WORRELL Unavailable [phone] ALLERGIES No Known Allergies REASON FOR REFERRAL Reason please refer pt to [facility] in [place] dx lumbar pain with radiculopathy Diagnosis 1 Lumbar radiculopathy (M54.16) Referral Organization [facility] Referring Provider First Name VANNESSA Referring Provider Last Name ANAID Referring Provider Speciality Preventive Medicine Referred Organization [facility] Referred Address [address], [place],[phone], Referred Provider Specialty Physical The rapist General Notes BRANDON DEVI 0 09/15/2023 08:55:42 AM >order and demographics faxed to [facility] [phone] Referral Priority Routine Reason please refer to [facility] for MRI LS spine due to persistent lumbar radiculopathy Diagnosis 1 Lumbar radiculopathy (M54.16) Referral Organization [facility] Referring Provider First Name VANNESSA Referring Provider Last Name ANAID Referring Provider Speciality Preventive Medicine Referred Organization [facility] Referred Address [address], [phone], Referred Provider Specialty Diagnostic R adiology General Notes BRANDON DEVI 0 11/15/2023 10:45:48 AM >order form, demographics, insurance info, order and office note faxed to [facility] [phone]. Insurance may request PT notes which does not look as though they are in our posession, BRANDON DEVI 12/22/2023 02:34:27 PM >order form refaxed to [facility] with corrected patient [phone] Referral Priority Routine Reason please refer pt to Abdulkadir Alexandre for MRI lumbar spine; does not want to use [facility] Diagnosis 1 Lumbar radiculopathy (M54.16) Referral Organization [facility] Referring Provider First Name VANNESSA Referring Provider [facility] Referring Provider Speciality Preventive Medicine Referred Organization [facility] Referred Address [address] [place] [phone], Referred Provider Specialty Diagnostic R adiology General Notes Irene Ty 12/31 11:53:02 AM >No PA needed per Ins. (please see attached doc.), Irene Ty 01/01/2024 12:09:45 PM >Please add PA - NA MRI document to faxed request., JACOB ALONZO 01/02/2024 08:37:40 AM > radiology Form, Referral, OV Note and Insurance information faxed to [facility] [phone], BRANDON DEVI 01/03/2024 02:39:53 PM >[facility] sent fax requesting auth info, Perry's response to request stating no precertification is required has been faxed to [facility] [phone]. Advised facility to please proceed with scheduling patient Referral Priority Routine Reason please refer pt to Sergio Lopez and include both MRI from this month and MRI from 2 years ago TY resend- office advised patient that they never received referral or MRI report Appt booked for 05/07/24 at 11:00am with Diagnosis 1 Lumbar radiculopathy (M54.16) Referral Organization [facility] Referring Provider First Name VANNESSA Referring Provider Last [facility] Referring Provider Speciality Preventive Medicine Referred Organization [facility] Referred Address [address] [place] [id number] Referred Provider Specialty Neurological Surgery General Notes BRANDON DEVI 1 04/18/2023 10:15:29 AM >appt request, demographics, insurance info, referral, office note, 2023 MRI, and 2021 MRI have been faxed to [facility] for Dr. Lopez [phone], BRANDON DEVI 03/14/2024 10:33:12 AM >Above info refaxed to [facility] for [phone] Referral Priority Routine MEDICATIONS Medication SIG (Take, [...] (10-19 cigs/day) Section Notes: Patient lives in [place], [place] with 2 daughters. Patient lives [place] with 2 daughters. Patient lives [place] with 2 [place]. Patient lives [place] 2 [place]. Patient lives [place]. Patient [place] Patient [place]. Patient [place] Patient [place]. Patient [place]. Patient [place] Patient [place]. Patient [place] Patient [place] 2 [place]. Patient lives [place] 2 [place]. Patient lives [place] with 2 daughters. 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 Patient lives [place] with 2 daughters. Patient lives [place] with 2 [place]. Patient lives [place] with 2 [place]. PROBLEMS Problem Type ICD Code Onset Dates Problem Status W/U Status Risk SNOMED Code Notes Problem Osteoarthritis, unspecified osteoarthritis type, unspecified site (M19.90) Active confirmed Osteoarthritis (597067744) Problem Other hyperlipidemia (E78.49) Active confirmed 89992285 Problem Vitamin D deficiency (E55.9) Active confirmed Vitamin D deficiency (57464659) Problem Elevated high sensitivity C-reactive protein (R79.82) Active confirmed [id number] Problem Polyarthralgia (M25.50) Active confirmed 76843596 Problem Lumbar radiculopathy (M54.16) Active confirmed 898772774 Problem Herpes (B00.9) Active confirmed Herpes simplex viral infection (34586336) Problem Insulin resistance syndrome (E88.810) Active confirmed 976748278 Problem Fibromyalgia syndrome (M79.7) Active confirmed Fibromyalgi a (496007005) Problem Recurrent oral herpes simplex (B00.2) Active confirmed 385518785 VITAL SIGNS Heart Rate 77 /min 09/14/2023 Height-cm 172.72 cm 04/02/2024 Oximetry 96 % 09/14/2023 Blood pressure diastolic 68 mm Hg 09/14/2023 Weight-kg 77.29 kg 09/14/2023 Height 68 in 04/02/2024 Blood pressure systolic 102 mm Hg 09/14/2023 Weight 170.4 lbs 09/14/2023 BMI 25.91 kg/m2 09/14/2023 Encounters Encounter Location Date Provider Diagnosis [address] [place] [id number] 08/18/2023 VANNESSA WORRELL [address] [place] [id number] 09/19/2023 NATASHA VAIL Left shoulder pain, unspecified chronicity M25.512 [facility], [address] [place] [id number] 10/03/2023 NATASHA VAIL [address] [id number] 10/09/2023 NATASHA VAIL Left shoulder pain, unspecified chronicity M25.[address] [place], [place] [id number] 10/31/2023 NATASHA VAIL Bursitis of left shoulder M75.[address] [id number] 12/11/2023 NATASHA VAIL [address] [id number] 08/18/2023 VANNESSA WORRELL Polyarthralgia M25.5 0 ; Elevated high sensitivity C-reactive protein R79.82 ; Other hyperlipidemia E78.49 and Insulin resistance syndrome E88.[address] [id number] 09/14/2023 VANNESSA WORRELL Encounter for screening for [...] unspecified site M19.90 and Pre-op evaluation Z01.[address] [id number] 09/29/2023 VANNESSA WORRELL Polyarthralgia M25.5 0 and Lumbar radiculopathy M54.[address] [id number] 10/17/2023 VANNESSA WORRELL Fibromyalgia syndrom e M79.7 and Polyarthralgia M25.[address] [id number] 11/14/2023 NATASHA VAIL Bursitis of left shoulder M75.[address] [id number] 11/14/2023 VANNESSA WORRELL Lumbar radiculopathy M54.16 ; Other hyperlipidemia E78.49 and Polyarthralgia M25.[address] [id number] 11/28/2023 NATASHA VAIL Herpes B00.9 and Bursitis of left shoulder M75.[address] [id number] 12/29/2023 VANNESSAARGENIS WORRELL Lumbar radiculopathy M54.16 ; Polyarthralgia M25.50 ; Vitamin D deficiency E55.9 ; Other hyperlipidemia E78.49 and Elevated high sensitivity C-reactive protein R79.[address] [id number] 02/13/2024 VANNESSA WORRELL Lumbar radiculopathy M54.16 and Other hyperlipidemia E78.[address] [id number] 03/13/2024 VANNESSA WORRELL Viral illness B34.[address] [id number] 04/02/2024 VANNESSA WORRELL Other hyperlipidemia E78.49 and Elevated liver function tests R79.[address] [id number] 06/27/2023 VANNESSA WORRELL Rheumatoid factor positive R76.8 and Fibromyalgia syndrome M79.[address] [id number] 07/04/2023 VANNESSA WORRELL Fibromyalgia syndrom e M79.[address] [id number] 07/25/2023 VANNESSA WORRELL Rheumatoid factor positive R76.8 and Insulin resistance syndrome E88.[address] [id number] 09/18/2023 VANNESSA WORRELL [address] [id number] 03/25/2024 VANNESSA WORRELL ASSESSMENTS Encounter Date Diagnosis Assessment Notes Treatment Notes Treatment Clinical Notes Section Notes 07/04/2023 Fibromyalgia syndrome (ICD-10 - M79.7) 07/25/2023 Rheumatoid factor positive (ICD-10 - R76.8) 06/27/2023 Rheumatoid factor positive (ICD-10 - R76.8) 08/18/2023 Polyarthralgia (ICD-10 - M25.50) Very concerned with her signiicant inflammatory markers She initially was requesting referral to Dr Pederson ([facility]) even though she already saw another speech pathology assistant there Shared decision making, decided that she would like to get the full analyzer test that [facility] offers first Will repeat markers She is also wondering about her magesium with muscle cramps 09/14/2023 Encounter for screening for malignant neoplasm of colon (ICD-10 - Z12.11) Pt due for colonoscopy per pt according to her my chart at [facility] in 202509/14/2023 Polyarthralgia (ICD-10 - M25.50) Sigificant decrease in her inflammatory markers Was dx with fibromyalgia by rheumatology within the last 6 mo Failed Deloxetine due to nausea She did not go to [facility] for her blood work so did not [...] in 5-7 days for the 5 sessions 10/17/2023 Fibromyalgia syndrome (ICD-10 - M79.7) Noted improvement in physical symptoms Still continueing with nonpharmacologic means as well Will increase Lyrica to therapeutic dose and agreed on one-time nightly dose instead Will re-eval in 4 weeks 11/14/2023 Lumbar radiculopathy (ICD-10 - M54.16) Will order MRI LS spine since she continues to have pain despite all discussed interventions in HPI 12/29/2023 Lumbar radiculopathy (ICD-10 - M54.16) As in [facility], pt now choosing to go to [facility] for her MRI She continues to [...] of 7 treatments as today was #5 10/31/2023 Bursitis of left shoulder (ICD-10 - M75.52) applied 1500 ECSWT at 16 hz/40 mjs-tolerated well, does feel better after treatments but reports no significant lasting improvement. We discussed that a cortisone injection would be an option if this does not resolve the issue, she will consider 10/09/2023 Left shoulder pain, unspecified chronicity (ICD-10 - M25.512) shock wave applied at 1500 shocks to left bursa, tolerated well 09/29/2023 Polyarthralgia (ICD-10 - M25.50) Pt states she feels she is getting some relief after shock wave and IFC therapy She is to continue with the lyrica emphasizing need for BID dosing She is scheduled for repeat shock wave and is calling [facility] regarding getting the machine 02/13/2024 Lumbar radiculopathy (ICD-10 - M54.16) Pain [...] to follow up with new provider 12/29/2023 Polyarthralgia (ICD-10 - M25.50) She has had improvement in her left shoulder pain with the cortisone injection She is still looking to obtain an IFC machine for which she has called the companies that her insurance is contracted with and they do not carry the unit Discussed payment plans available through [facility] if she wants to go that route 09/29/2023 Lumbar radiculopathy (ICD-10 - M54.16) Has apt with PT this month Tolerating Lyrica as well Will re eval in 3 weeks and possibly increase to therapeutic dose 02/13/2024 Other hyperlipidemia (ICD-10 - E78.49) She is to continue her statin Will recheck labs in Mar Continue with low fat diet Exercise Maintain healthy weight Noted pt is to go to [facility] to avoid high lab fees as we have the cardioIQ panel that was explained to pt 11/14/2023 Other hyperlipidemia (ICD-10 - E78.49) Shared [...] Zynex was not covered under her plan 09/14/2023 Encounter for screening mammogram for malignant neoplasm of breast (ICD-10 - Z12.31) Per pt UTD Also getting breast augmentation end of month 06/27/2023 Fibromyalgia syndrome (ICD-10 - M79.7) 08/18/2023 Elevated high sensitivity C-reactive protein (ICD-10 - R79.82) Significant elevated CRP Gave her options through [facility] a well She continues to follow a KETO diet pretty strictly with minimal inflammatory foods Will repeat level 07/25/2023 Insulin resistance syndrome (ICD-10 - E88.810) [...] Note Rx for IFC machine faxed to [facility] 12/29/2023 Other Total time spen t with [...] Name Order Date CARDIO IQ(R) LIPID PANEL (48495) 024 COMPREHENSIVE METABOLIC PANEL (37336) CBC (INCLUDES DIFF/PLT) (6399) 4 CARDIO IQ(R) HS CRP (69941) 12/29/2023 CARDIO IQ(R) APOLIPOPROTEIN B (54038) CARDIO IQ(R) VITAMIN D, 25 HYDROXY (9173 5) 12/29/2023 Insurance Providers Payer Name Payer Address Payer Phone Subscriber Number Group Number Insured Name Patient Relationship to Insured Coverage Start Date Coverage End Date [employer] AN[employer] [address] [place] [address] [id number] DIANNEREAGAN MARIE Self - patient is the insured MEDICAL (GENERAL) HISTORY Medical History History ICD Code Arthritis Chicken Pox as a child Colon Polyp Surgical History Surgery Date(Month/Year) Punch Biopsy of the nose (2) 2022 Scrapping of the tip of the left nostril 2021 [place] Teeth Removed 1983 Breast Augmentation 2003 Colonoscopy 2015 MRI of lower back - compressed disc cart alidge thinning 2021 Lasik surgery 2020
--- OUTSIDE RECORDS SUMMARY | 2024-06-19 11:27 | XMS_ITS ---
Author Organization [facility] Address [address] [place] [id number] Care Team Providers Care Brickmason Helper Name Role Phone NATASHA VAIL Primary Care Provider [phone] VANNESSA WORRELL Unavailable [phone] REASON FOR VISIT f/u fasting labs MEDICATIONS [...] 04/02/2024 Encounters Encounter Location Date Provider Diagnosis [facility], [address] [id number] 04/02/2024 VANNESSA WORRELL Other hyperlipidemia E78.49 and [...] * CLIFFORD GONZALESOB: 6 (58 yo F)Acc No.[id number]:04/02/2024 Progress Note Patient:??MARIE GONZALES Provider:??VANNESSA WORRELL NP :1965?Age:58 Y?Sex:Fe male Date:04/02/2024 Phone: Address:[address] [place] [address] , [place] Pcp:NATASHA VAIL Subjective: * Chief Complaints: * [...] 04/19) * Billing Information: * Visit Code:?? 49283 Office Visit, Est Pt., Level 4. * [...] office in a private room. -Saw Dr Peedrson and she had blood work done and [...]
== END 2024-06-19 10:32 | disposition home or self-care (01) ==
LOC: HO.PMC 10:00
PROVIDERS: Visit Provider Internal Medicine
DX: M54.16 Radiculopathy, lumbar region (principal); M75.102 Unspecified rotator cuff tear or rupture of left shoulder, not specified as traumatic
CPT/HCPCS: 99214

== ENCOUNTER → 2024-06-19 10:00 | Outpatient (BNVA) | payer BC, SELFPAY | PROVIDERS: Visit Provider Internal Medicine ==

== ENCOUNTER 2024-06-25 11:00 | Outpatient (RCR) | payer BC, SELFPAY ==
--- NOTE | 2024-04-29 13:55 | MHC.PT.EP ---
[facility] [place] Office [place] Office [place] Office [address] Vishal Sanz [address] [phone] F: [phone] F: [phone] F: [phone] F: [phone] Physical Therapy Plan of Care Date of Evaluation: 04/29/24 Date of Surgery: N/A Diagnosis: pain in right shoulder (RL) Assessment: pt is a 58 y/o female presenting to physical therapy w/ referring diagnosis of pain in right shoulder. I am suspicious of rotator cuff involvement given her sings and symptoms. Impairments include pain, decreased range of motion, decreased strength, impaired functional mobility, impaired postural awareness, and altered ambulation mechanics. pt is a good candidate for skilled PT due to age, potential remediation of impairments, typical disease/condition progression and prognosis, comorbidities, and motivation. pt would benefit from skilled PT intervention to provide a tailored strengthening and stretching exercise program, functional training, gait training, postural re-training, neuromuscular re-education, modalities as needed for pain, equipment safety demonstration. Frequency and Duration: The patient will be seen 2x/wk for 4 wks Short Term Goals: pt will be I w/ HEP to promote self-management of condition. pt will improve B shoulder flexion to promote ease in overhead reaching. pt will demo proper sitting posture w/ lumbar roll to promote neutral spine and GH position w/ sitting for work. Reel Winder Goals: pt will report a statistically significant improvement in self-reported outcome measure, SPADI, to promote return to PLOF. pt will improve B shoulder flexion and abduction strength by 1 MMT grade to promote ease in carrying groceries. Treatment Plan: Modalities to reduce pain, spasms and effusion. Manual therapy to restore motion and function. Therapeutic exercise to improve strength and flexibility. Neuromuscular re-education for posture and balance. Therapeutic activities to return to functional activities of daily living. Electronically signed by: Kim Meadows PT, DPT Please sign and return to therapist. Thank you for your referral.
--- NOTE | 2024-08-15 14:31 | MHC.PT.DC ---
[facility] [place] Office [place] Office [address] Vishal Sanz [address] [facility] [phone] F: [phone] F: [phone] F: [phone] F: [phone] Physical Therapy Discharge Report Diagnosis: pain in right shoulder (RL) Date of Surgery: N/A Date of Evaluation: 04/29/24 Date of Discharge: 08/15/24 Treatments to Date: 11 Cancellations to Date: 2 No Shows to Date: 0 Discharge Status: Recommend MD Follow-up Discharge Summary: The patient arrived today after receiving her MRI results and trying to follow-up w/ pain management provider. Apparently, her MRI from [place] is not able to be visualized here so she was not able to get specific guidance. They recommended seeing an orthopedic surgeon but she has not heard back about that yet. I encouraged her to call or follow-up in person at pain management and then bring physical order to orthopedic office. At this time, the patient appears frustrated w/ her lack of pain control w/ what we have tried in PT. She endorsed not feeling any better. Given this, I cannot continue to recommend PT and advised her to continue to follow-up w/ providers including pain management, orthopedics, and neurology. pt verbalized understanding. I will keep her chart open for 3 weeks. If I do not hear from her in that time I will D/C her chart. Electronically signed by: Kmi Meadows PT, DPT Please sign and return to therapist. Thank you for your referral.
== END 2024-08-15 14:31 | disposition home or self-care (01) ==
LOC: HO.PT 11:00
PROVIDERS: Visit Provider Internal Medicine Rheumatology
DX: M75.32 Calcific tendinitis of left shoulder (principal); M25.511 Pain in right shoulder
CPT/HCPCS: 97110; 97112; 97140; 97161; 97164; 97530

== ENCOUNTER 2024-07-01 10:50 | Outpatient (AMB) | payer BC, SELFPAY ==
--- NOTE | 2024-07-01 11:08 | A.SPINEOV_ITS ---
Vital Signs 07/01/24 11:13 Height 5 ft 8 in Weight 180 lb BMI 27.4 Intake Visit Reasons: Low back pain Intake Note: Ms. Watson is here today c/o Low back pain shooting down the outter thighs. Herbicide Service Sales Representative Required: No Allergies No Known Allergies Allergy (Verified 07/01/24 11:14) Physical Exam Vital Signs: BMI result Body Mass Index 27.4 Assessment & Plan Assessment & Plan (1) Lumbar radiculopathy: Code(s): M54.16 - Radiculopathy, lumbar region Category: Medical Plan: Dear colleague, Thank you for referring Calisat to our office today. She is a pleasant 58-year-old female who comes in today with 10 years of chronic low back pain. In addition to this she reports some radiation of pain down her bilateral lower extremities. When describing the pain she runs her hand down the lateral aspect of her leg terminating near the calf. She states that her left leg is affected more so than the right. She reports that her symptoms are the worst at night, and finds herself waking up multiple times throughout the night in pain. She is still able to ambulate fairly well, and states she can walk about a mile before she needs to stop due to intolerable pain. When asked which is worse, her low back pain or her leg pain, the patient states that her low back pain is by far the worst. She reports that she recently had liver function tests that were high, and therefore was advised to not take any Tylenol or other pain medications that are typically found [id number]-kyfdrat until her liver functions are retested by her primary care physician. She has been to physical therapy but found it was not helpful for her pain. She has had cortisone injections in the past with Dr. Carr and reports 100% relief of her pain for about a month after her injections. She did attempt to go back and see Dr. Carr but was unable to reach his office. She was recently evaluated by [facility] neurosurgery who referred her to our pain colleagues here at [facility]. PMH: Hyperlipidemia. Breast reduction surgery in 2003. Social hx: The patient does not smoke, reports no substance use. Medications: Acyclovir, estradiol. Allergies: None. Physical exam: The patient has 5/5 strength in her upper and lower extremities. She ambulates well with a nonantalgic non spastic gait. She is able to get up onto the examination table without much issue. She has no significant sensational deficits on exam. Her reflexes are 2+ intact. (-) bilateral straight leg raise, (-) Marinelli's, (-) clonus. Imaging review: MRI of the lumbar spine completed at [facility] on 01/29/2024 shows mild degenerative disc disease at L4-5 with some Modic endplate changes. There is moderate central canal and moderate-severe bilateral foraminal stenosis at this level. At L5-S1 there is severe degenerative disc disease with almost complete disc height loss, causing severe bilateral for aminal stenosis and endplate edema. Impression: Pleasant 58-year-old female who comes in today with a chief complaint of 10 years of low back pain and some intermittent radiation down her lower extremities. She reports that overall her low back pain is much worse than her leg pain. She has had really good relief from cortisone injections in the past, but was unable to connect with Dr. Carr's office to consider subsequent injections. We discussed the possibility of surgery to address the L5-S1 segment, but I feel she would be better off obtaining subsequent injections at this time. She also reports that she would prefer to pursue conservative measures at this time. I am going to refer her back to Dr. Carr in the hopes that he can repeat the injection Jessica's previously given. She is welcome to come back and see us for subsequent evaluation dependent on her results from the injections. Thank you for allowing us to care for your patient. The total time spent with this visit with this patient was 45 minutes reviewing history, physical exam, MRI imaging review, and implementation of treatment plan or further diagnostic testing Edilberto Lebron MD,PhD [facility] Orders: Referrals Pain Management Referral M54.16 - Radiculopathy, lumbar region Coding Level of Care Code New Pt Level 4 (18828) Diagnoses Lumbar radiculopathy M54.16
[2024-07-01 11:13] VITALS: BMI 27.4
--- OUTSIDE RECORDS SUMMARY | 2024-07-01 12:22 | XMS_ITS ---
Author Organization [facility] Address [address] [place], [place] [phone] Care Team Providers Care Ordnance Engineer Name Role Phone JON VAILFER Primary Care Provider VANNESSA WORRELL Unavailable [phone] ALLERGIES No Known Allergies REASON FOR VISIT [...] (10-19 cigs/day) Section Notes: Patient lives in [place], [place] with 2 daughters. VITAL SIGNS Height 68 in 03/13/2024 Height-cm 172.72 cm 03/13/2024 Encounters Encounter Location Date Provider Diagnosis [address] [place] [id number] 03/13/2024 VANNESSA WORRELL Viral illness B34.9 ASSESSMENTS [...] * CLIFFORD GONZALESOB: 6 (58 yo F)Acc No.[id number]:03/13/2024 Patient:??MARIE GONZALES Provider:??VANNESSA WORRELL NP :1965?Age:58 Y?Sex:Fe male Date:03/13/2024 Phone: Address:[address] [place] [address] [id number] Pcp:NATASHA VAIL Subjective: * Chief Complaints: * ? sick * HPI: ?Patient Care Team:?Dry Box Operator:??Dry Box Operator: Dr. Lauren.?.??Online Editor:??Lui Wells MA.?.??Orthopedic:???[facility].? Providers/Specialists: Urogynogologist: Dr. Saldivar [facility]: Dr. Waller Physiatry: Dr. Carr OBGYN: Aissatou [facility] [place]. ?Visit info:? The patient consents to HIPAA [...] Yes, Daily 7-10. 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 ?Patient lives in [place], [place] with 2 daughters. * Medications:??TakingVitamin D [...] Shingrix Td/Tdap: UTD Hep A/Hep B: unknown WEB PRESS OPERATOR: UTD SBE/Mammogram: UTD Eye Exam: Has Lasik Dental Exam: UTD Depression Scale: neg PHQ 9 Alcohol Misuse Screening: Neg Smoking Cessation: nonsmoker Screened HTN, diabetes, BMI addressed. * Follow Up:??2 - 3 Days (Reas on: swab/wellbeing) * Billing Information: * Visit Code:?? 07393 Office Visit, Est Pt., Level 3. * Procedure Codes:?? * Sign off status: Completed true * Provider:??VANNESSA WORRELL NP Date:?? History and Physical Notes * HPI (History of Present Illness) Category Sub-Category Detail Notes Category Not es Patient Care Team Dry Box Operator: Dry Box Operator: Dr. Bell. Providers/Specialist s: Urogynogologist: Dr. Saldivar [facility]: Dr. Waller Physiatry: Dr. Carr [facility] Online Editor: Lui Wells M A. Orthopedic: [facility] Examination Category Sub-Category Detail Notes Category Not es General Examination GEN: NAD, speaking in full complete sentences, thoughts clear and appropriate; mildly ill appearing RESP: nonlabored breathing, no audible SOB/Wheezing but loose cough NEURO: AO x 3 PSYCH: judgment/insight intact, NL mood/affect
--- OUTSIDE RECORDS SUMMARY | 2024-07-01 12:22 | XMS_ITS ---
Author Organization [facility], [facility] Address [address] [place] [id number] Care Team Providers Care Cloth Winding Supervisor Name Role Phone NATASHA VAIL Primary Care Provider [phone] VANNESSA WORRELL Unavailable [phone] REASON FOR VISIT f/u fasting labs MEDICATIONS [...] 04/02/2024 Encounters Encounter Location Date Provider Diagnosis [facility], [address] [id number] 04/02/2024 VANNESSA WORRELL Other hyperlipidemia E78.49 and [...] * CLIFFORD GONZALESOB: 6 (58 yo F)Acc No.[id number]:04/02/2024 Progress Note Patient:??MARIE GONZALES Provider:??VANNESSA WORRELL NP :1965?Age:58 Y?Sex:Fe male Date:04/02/2024 Phone: Address:[address] [place] [address] , [place], [id number] Pcp:NATASHA VAIL Subjective: * Chief Complaints: * [...] 04/19) * Billing Information: * Visit Code:?? 47683 Office Visit, Est Pt., Level 4. * [...]
--- OUTSIDE RECORDS SUMMARY | 2024-07-01 12:22 | XMS_ITS | Clinical Summary ---
Author Organization [facility] [address] [facility] lding Address [address] [place] [address] Phone Care Team Providers Care Dermatology Nurse Name Role Phone Deya Mixon MD Primary Care Provider [phone] Allergies No known active allergies Medications estradioL [...] Date Site/Laterality Comments BREAST REDUCTION - PROCEDURE: SD BREAST REDUCTION OTHER SURGICAL HISTORY 05/29/06 PROCEDURE: SD CRYOTHERAPY CO2 SLUSH LIQUID N2 ACNE; COMMENT: [...] C Screening (08/04/2021) Hepatitis C Screening Abstracted [facility] Provider HEALTH MAINTENANCE Final Result * Cervical Cancer Screening: HPV (04/01/2019) Pathologist [facility] Cervical Cancer Screening: HPV Negative, abstracted [facility] Provider HEALTH MAINTENANCE Final Result * Colonoscopy (04/22/2016) Pathologist [facility] Colonoscopy No interpretation , abstracted Anatomical Region Laterality Modality Other [facility] Provider HEALTH MAINTENANCE Final Result from Last 3 Months or Most Recently Relevant to Health Maintenance Insurance BLUE CROSS - [place] (ANTHEM) Care Teams Dermatology Nurse Relationship Specialty Start Date End Date Deya Mixon MD PCP - General 08/14/23
--- OUTSIDE RECORDS SUMMARY | 2024-07-01 12:22 | XMS_ITS | Patient Health Record ---
Author Organization [facility] Address [address], [place] [phone] Care Team Providers Care Product Scientist Name Role Phone NATASHA VAIL Primary Care Provider VANNESSA WORRELL Unavailable [phone] ALLERGIES No Known Allergies REASON FOR REFERRAL Reason please refer pt to [facility] in Sod dx lumbar pain with radiculopathy Diagnosis 1 Lumbar radiculopathy (M54.16) Referral Organization [facility] Referring Provider First Name VANNESSA Referring Provider Last Name ANAID Referring Provider Speciality Preventive Medicine Referred Organization [facility] Referred Address [address], [phone], Referred Provider Specialty Physical The rapist General Notes BRANDON DEVI 0 09/15/2023 08:55:42 AM >order and demographics faxed to [facility] [phone] Referral Priority Routine Reason please refer to [facility] for MRI LS spine due to persistent lumbar radiculopathy Diagnosis 1 Lumbar radiculopathy (M54.16) Referral Organization [facility] Referring Provider First Name VANNESSA Referring Provider Last Name ANAID Referring Provider Speciality Preventive Medicine Referred Organization [facility] Referred Address [address], [place],[phone], Referred Provider Specialty Diagnostic R adiology General Notes BRANDON DEVI 0 11/15/2023 10:45:48 AM >order form, demographics, insurance info, order and office note faxed to [facility] [phone]. Insurance may request PT notes which does not look as though they are in our posession, BRANDON DEVI 12/22/2023 02:34:27 PM >order form refaxed to [facility] with corrected patient [phone] Referral Priority Routine Reason please refer pt to [facility]ulkad[facility] Alexandre for MRI lumbar spine; does not want to use [facility] Diagnosis 1 Lumbar radiculopathy (M54.16) [facility] Referring Provider First Name VANNESSA [facility] Referring Provider Speciality Preventive Medicine Referred Organization [facility] Referred Address [address] [place] [phone], Referred Provider Specialty Diagnostic R adiology General Notes Irene Ty 12/31 11:53:02 AM >No PA needed per Ins. (please see attached doc.), Irene Ty 01/01/2024 12:09:45 PM >Please add PA - NA MRI document to faxed request., JACOB ALONZO 01/02/2024 08:37:40 AM > radiology Form, Referral, OV Note and Insurance information faxed to [facility] [phone], BRANDON DEVI 01/03/2024 02:39:53 PM >[facility] sent fax requesting auth info, Perry's response to request stating no precertification is required has been faxed to [facility] [phone]. Advised facility to please proceed with scheduling patient Referral Priority Routine Reason please refer pt to [facility] and include both MRI from this month and MRI from 2 years ago TY resend- office advised patient that they never received referral or MRI report Appt booked for 05/07/24 at 11:00am with Diagnosis 1 Lumbar radiculopathy (M54.16) Referral Organization [facility] Referring Provider First Name VANNESSA Referring Provider Last Name [facility] Referring Provider Speciality Preventive Medicine Referred Organization [facility] Referred Address [address] [place] [phone] Referred Provider Specialty Neurological Surgery General Notes BRANDON DEVI 1 04/18/2023 10:15:29 AM >appt request, demographics, insurance info, referral, office note, 2023 MRI, and 2021 MRI have been faxed to [facility]surgery for Dr. Lopez [phone], BRANDON DEVI 03/14/2024 10:33:12 AM >Above info refaxed to [facility] for [phone] Referral Priority Routine MEDICATIONS Medication SIG (Take, [...] (10-19 cigs/day) Section Notes: Patient lives in [place], [place] with 2 daughters. Patient lives in [place], [place] with 2 daughters. Patient lives in [place] with 2 daughters. Patient lives in [place] with 2 daughters. 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 Patient lives in [place] with 2 daughters. Patient lives [place] with 2 daughters. Patient lives [place] with 2 daughters. Patient lives [place] with 2 daughters. Patient lives [place] with [place] daughters. Patient lives [place] daughters. Patient [place] daughters. Patient lives [place] daughters[place] Patient lives [place] with [place] daughters. Patient lives [place] daughters. Patient lives [place] daughters[place] Patient lives [place] with 2 daughters. Patient lives [place] with 2 daughters. Patient lives in [place] with 2 daughters. PROBLEMS Problem Type ICD Code Onset Dates Problem Status W/U Status Risk SNOMED Code Notes Problem Osteoarthritis, unspecified osteoarthritis type, unspecified site (M19.90) Active confirmed Osteoarthritis (962633269) Problem Other hyperlipidemia (E78.49) Active confirmed 20410954 Problem Vitamin D deficiency (E55.9) Active confirmed Vitamin D deficiency (87733204) Problem Elevated high sensitivity C-reactive protein (R79.82) Active confirmed 242090149583053 Problem Polyarthralgia (M25.50) Active confirmed 86690525 Problem Lumbar radiculopathy (M54.16) Active confirmed 346666187 Problem Herpes (B00.9) Active confirmed Herpes simplex viral infection (93450826) Problem Insulin resistance syndrome (E88.810) Active confirmed 619023139 Problem Fibromyalgia syndrome (M79.7) Active confirmed Fibromyalgi a (365491892) Problem Recurrent oral herpes simplex (B00.2) Active confirmed 614411093 VITAL SIGNS Heart Rate 77 /min 09/14/2023 Height-cm 172.72 cm 04/02/2024 Oximetry 96 % 09/14/2023 Blood pressure diastolic 68 mm Hg 09/14/2023 Weight-kg 77.29 kg 09/14/2023 Height 68 in 04/02/2024 Blood pressure systolic 102 mm Hg 09/14/2023 Weight 170.4 lbs 09/14/2023 BMI 25.91 kg/m2 09/14/2023 Encounters Encounter Location Date Provider [address] [place] [id number] 08/18/2023 VANNESSA WORRELL [address] [place] [id number] 09/19/2023 NATASHA VAIL Left shoulder pain, unspecified chronicity M25.512 [address] [place] [id number] 10/03/2023 NATASHA VAIL [address] [id number] 10/09/2023 NATASHA VAIL Left shoulder pain, unspecified chronicity M25.[address] [place], [place] [id number] 10/31/2023 NATASHA VAIL Bursitis of left shoulder M75.[address] [id number] 12/11/2023 NATASHA VAIL [address] [id number] 08/18/2023 VANNESSA WORRELL Polyarthralgia M25.5 0 ; Elevated high sensitivity C-reactive protein R79.82 ; Other hyperlipidemia E78.49 and Insulin resistance syndrome E88.[address] [id number] 09/14/2023 VANNESSA WORRELL Encounter for screening for [...] unspecified site M19.90 and Pre-op evaluation Z01.[address] [id number] 09/29/2023 VANNESSA WORRELL Polyarthralgia M25.5 0 and Lumbar radiculopathy M54.[address] [id number] 10/17/2023 VANNESSA WORRELL Fibromyalgia syndrom e M79.7 and Polyarthralgia M25.[address] [id number] 11/14/2023 NATASHA VAIL Bursitis of left shoulder M75.[address] [id number] 11/14/2023 VANNESSA WORRELL Lumbar radiculopathy M54.16 ; Other hyperlipidemia E78.49 and Polyarthralgia M25.[address] [id number] 11/28/2023 NATASHA VAIL Herpes B00.9 and Bursitis of left shoulder M75.[address] [id number] 12/29/2023 VANNESSA WORRELL Lumbar radiculopathy M54.16 ; Polyarthralgia M25.50 ; Vitamin D deficiency E55.9 ; Other hyperlipidemia E78.49 and Elevated high sensitivity C-reactive protein R79.[address] [id number] 02/13/2024 VANNESSA WORRELL Lumbar radiculopathy M54.16 and Other hyperlipidemia E78.[address] [id number] 03/13/2024 VANNESSA WORRELL Viral illness B34.[address] [id number] 04/02/2024 VANNESSA WORRELL Other hyperlipidemia E78.49 and Elevated liver function tests R79.[address] [id number] 07/04/2023 VANNESSA WORRELL Fibromyalgia syndrom e M79.[address] [id number] 07/25/2023 VANNESSA WORRELL Rheumatoid factor positive R76.8 and Insulin resistance syndrome E88.[address] [id number] 09/18/2023 VANNESSA WORRELL [address] [id number] 03/25/2024 VANNESSA WORRELL ASSESSMENTS Encounter Date Diagnosis Assessment Notes Treatment Notes Treatment Clinical Notes Section Notes 07/04/2023 Fibromyalgia syndrome (ICD-10 - M79.7) 07/25/2023 Rheumatoid factor positive (ICD-10 - R76.8) 09/29/2023 Polyarthralgia (ICD-10 - M25.50) Pt states [...] 1500 shocks to left bursa, tolerated well 10/31/2023 Bursitis of left shoulder (ICD-10 - [...] HPI, pt now choosing to go to [facility] for her MRI She continues to have [...] refill on pregabalin but read refills available 10/17/2023 Fibromyalgia syndrome (ICD-10 - M79.7) Noted improvement in physical symptoms Still continueing with nonpharmacologic means as well Will increase Lyrica to therapeutic dose and agreed on one-time nightly dose instead Will re-eval in 4 weeks 09/19/2023 Left shoulder pain, unspecified chronicity [...] pt according to her my chart at [facility] in 202509/14/2023 Polyarthralgia (ICD-10 - M25.50) Sigificant decrease in her inflammatory markers Was dx with fibromyalgia by rheumatology within the last 6 mo Failed Deloxetine due to nausea She did not go to [facility] for her blood work so did not get the Analyzer test Will trial lyrica as she is having neuropathic pain in her left leg currently Will re-eval 2 weeks 08/18/2023 Polyarthralgia (ICD-10 - M25.50) Very concerned with her signiicant inflammatory markers She initially was requesting referral to Dr Pederson ([facility]) even though she already saw another caddymaster there Shared decision making, decided that she would like to get the full analyzer test that [facility] offers first Will repeat markers She is also wondering about her magesium with muscle cramps 08/18/2023 Elevated high sensitivity C-reactive protein (ICD-10 - R79.82) Significant elevated CRP Gave her options through [facility] a well She continues to follow a KETO diet pretty strictly with minimal inflammatory foods Will repeat level 09/14/2023 Encounter for screening mammogram for malignant neoplasm of breast (ICD-10 - Z12.31) Per pt UTD Also getting breast augmentation end of month 02/13/2024 Other hyperlipidemia (ICD-10 - E78.49) She is to continue her statin Will recheck labs in [place] Continue with low fat diet Exercise Maintain healthy weight Noted pt is to go to [facility] to avoid high lab fees as we have the cardioIQ panel that was explained to pt 10/17/2023 Polyarthralgia (ICD-10 - M25.50) Polyarthralgias and myalgias Pt again sending over list of contracted placed to send IFC machine so she can use at home since [employer] was not covered under her plan 12/29/2023 Polyarthralgia (ICD-10 - M25.50) She has had improvement in her left shoulder pain with the cortisone injection She is still looking to obtain an IFC machine for which she has called the companies that her insurance is contracted with and they do not carry the unit Discussed payment plans available through [employer] if she wants to go that route 11/14/2023 Other hyperlipidemia (ICD-10 - E78.49) Shared decision making, will start atorvastatin as she tolerated this well in past Still to continue healthy lifestyle choices Exercise as tolerated Weight control 09/29/2023 Lumbar radiculopathy (ICD-10 - M54.16) Has apt with PT this month Tolerating Lyrica as well Will re eval in 3 weeks and possibly increase to therapeutic dose 07/25/2023 Insulin resistance syndrome (ICD-10 - E88.810) 11/14/2023 Polyarthralgia (ICD-10 - M25.50) Will continue [...] and continue with exercise and weight management 12/29/2023 Elevated high sensitivity C-reactive protein (ICD-10 [...] Note Rx for IFC machine faxed to [facility] 12/29/2023 Other Total time spen t with [...] Name Order Date CARDIO IQ(R) LIPID PANEL (20860) 024 COMPREHENSIVE METABOLIC PANEL (53916) CBC (INCLUDES DIFF/PLT) (6399) 4 CARDIO IQ(R) HS CRP (40956) 12/29/2023 CARDIO IQ(R) APOLIPOPROTEIN B (63360) CARDIO IQ(R) VITAMIN D, 25 HYDROXY (9173 5) 12/29/2023 Insurance Providers Payer Name Payer Address Payer Phone Subscriber Number Group Number Insured Name Patient Relationship to Insured Coverage Start Date Coverage End Date [employer] [address] [place] [address] [id number] MARIE GONZALES Self - patient is the insured MEDICAL (GENERAL) HISTORY Medical History History ICD Code Arthritis Chicken Pox as a child Colon Polyp Surgical History Surgery Date(Month/Year) Punch Biopsy of the nose (2) 2022 Scrapping of the tip of the left nostril 2021 [place] Teeth Removed 1984 Breast Augmentation 2003 Colonoscopy 2016 MRI of lower back - compressed disc cart alidge thinning 2021 Lasik surgery 2020
--- OUTSIDE RECORDS SUMMARY | 2024-07-01 12:23 | XMS_ITS ---
Author Organization [facility] Address [address], [place] [id number] Care Team Providers Care Pe Electrical Engineer Name Role Phone NATASHA VAIL Primary Care Provider VANNESSA WORRELL Unavailable [phone] REASON FOR VISIT Lab result request Encounters Encounter Location Date Provider Diagnosis [facility], [address] [id number] 03/25/2024 VANNESSA WORRELL PLAN OF TREATMENT No Information Progress Notes * CLIFFORD GONZALESOB: 6 (58 yo F)Acc No.[id number]:03/25/2024 Patient:??MARIE GONZALES :1965?Age:58 Y?Sex:Fe male Phone: Address:[address] [place] [address] * true * Date:??
== END 2024-07-01 11:51 | disposition home or self-care (01) ==
LOC: HO.HNS 10:50
PROVIDERS: Referring Provider Internal Medicine; Visit Provider Physician Assistant
DX: M54.16 Radiculopathy, lumbar region (principal)
CPT/HCPCS: 99204

== ENCOUNTER 2024-07-02 08:58 | Outpatient (AMB) | payer BC, SELFPAY ==
--- NOTE | 2024-07-02 09:00 | MHC.OFFVIS ---
Vital Signs 07/02/24 09:03 Height 5 ft 8 in Weight 183 lb 6.793 oz BMI 27.9 BP 126/72 Blood Pressure Location Rt brachial Position Sitting Pulse 68 Pulse Source Pulse Oximeter Pulse Oximetry (%) 99 Oxygen Delivery Method Room Air Intake Visit Reasons: Discuss EMG res Intake Note: Patient presents for follow up on myalgia. 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 Overall soreness decrease. She continues to have upper extremity soreness in her muscles localized to her biceps. She has right shoulder pain greater than left shoulder pain. She recently had MRI and has been referred to orthopedic surgeons for further evaluation. She is experiencing lower back pain with radiculopathy. She saw pain management who recommended cortisone injection. She is trying to see Dr. Casper who she has seen in the past. [facility] Medical History Disc degeneration, lumbar Colon polyp Chickenpox Arthritis Surgical History H/O colonoscopy [place] teeth removed History of biopsy H/O laser assisted in situ keratomileusis S/P bilateral breast reduction Family History Maternal Grandmother Cancer Maternal Grandfather Heart attack Paternal Grandmother Stroke Father Diabetes type 2 Heart disease Mother Heart disease Brother Cancer of kidney Social History Household Members Other:: Daughter Housing: House Alcohol intake: current Alcohol intake frequency: a few times a week Patient Tobacco Use Status: Never used Tobacco service: No Current occupational status: employed 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 No crackles Cardiovascular: Regular rate and rhythm, no murmurs MSK: Tender bilateral shoulders and biceps muscle bulk. She has full range of motion of bilateral shoulders but with pain. No tender points and lower extremities and back. Bilateral hip flexor weakness 4/5 power. Rest of upper extremity and lower extremity is 5/5. No synovitis. Results Reviewed Results Reviewed: MRI left shoulder 2024 reviewed. EMG upper extremities 05/22/2024 FINDINGS: All motor and sensory nerves tested showed normal latencies, amplitudes and conduction velocities. Concentric needle EMG was performed in selected muscles of the bilateral upper and right lower extremities, cervical lumbar paraspinals. Study revealed signs of electric abnormalities as shown in the table above. Small PSWs seen on bilateral biceps and right FDI muscle. No denervation or reinnervation changes seen in right lower extremity. No denervation seen on cervical or lumbar paraspinals. IMPRESSION: 1. Normal nerve conduction studies. 2. Needle EMG showed denervation findings seen bilateral proximal and distal muscles in upper extremities. Myopathy not completely ruled out. 3. Cervical radiculopathy not completely ruled out. 4. There is no electrodiagnostic evidence for median neuropathy, ulnar neuropathy, peroneal neuropathy, tibial neuropathy, or peripheral neuropathy. Assessment & Plan Assessment & Plan (1) Myalgia: Comment: Chronic myalgias for 4 years, which has worsened on atorvastatin. She has associated paresthesia of bilateral hands and feet. On last exam she has lower extremity proximal muscle weakness affecting hip muscles. 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 Her muscle enzymes were normal but she had mild elevation in her CRP. Off of statin transaminitis has resolved. She continues to have myalgias affecting her bilateral biceps muscles with bilateral hip flexor weakness. EMG bilateral upper extremities was inconclusive. There were abnormalities noted related to bilateral biceps muscle but myopathy was not completely ruled out. I am recommending that she see surgery for management of her chronic rotator cuff muscles with hope that with reduced shoulder pain there may be less strain on her biceps muscles and tendons reducing pain. If she continues to have upper arm pain after orthopedic surgical intervention with cortisone injection versus arthroscopic procedure, can consider dedicated PT for biceps muscle and tendon strain along with NSAID. We discussed trying alternative to statins to treat her hyperlipidemia and hypercholesterolemia such as ezetimibe, fibrates, bile acid sequestrants, and PCSK9 inhibitors to avoid statin induced myalgias and transaminitis as a side effect, which is possible with all statins-she will further discuss with PCP. Code(s): M79.10 - Myalgia, unspecified site Category: Medical Plan: Muscle enzymes, liver enzymes and inflammatory muscles ordered. If she has elevated muscle enzymes, I will pursue MRI with and without contrast for further evaluation of mild myositis Orthopedic surgery evaluation and management for left shoulder multiple rotator cuff tendon tears If laboratory workup is normal, after orthopedic surgical evaluation and management of left rotator cuff tears, I will consider PT for targeted physical therapy for biceps muscle and tendon strain with NSAID. I will consider EMG of lower extremities next visit if she continues to have bilateral hip flexor weakness PCP follow-up for management of hyperlipidemia and hypercholesterolemia with consideration of non statin agents Return to clinic in 3 months (2) Muscle weakness: Code(s): M62.81 - Muscle weakness (generalized) Category: Medical Plan: See above (3) Rotator cuff tear, left: Code(s): M75.102 - Unspecified rotator cuff tear or rupture of left shoulder, not specified as traumatic Category: Medical Plan: See above (4) Bilateral shoulder pain: Code(s): M25.511 - Pain in right shoulder; M25.512 - Pain in left shoulder Category: Medical Plan: See above Orders: Orders Creatine Kinase Total Today M62.81 - Muscle weakness (generalized) Aspartate Amino Transferase Today M62.81 - Muscle weakness (generalized) C Reactive Protein Today M62.81 - Muscle weakness (generalized) Erythrocyte Sedimentation Rate Today M62.81 - Muscle weakness (generalized) Aldolase Today M62.81 - Muscle weakness (generalized) Alanine Aminotransferase Today M62.81 - Muscle weakness (generalized) Coding Level of Care Code Est Pt Level 4 (87839) Complex EM visit Add On G2211 Diagnoses Myalgia M79.10 Muscle weakness M62.81 Rotator cuff tear, left M75.102 Bilateral shoulder pain M25.511; M25.512
[2024-07-02 09:03] VITALS: BP 126/72; PULSE 68; O2SAT 99; BMI 27.9
--- OUTSIDE RECORDS SUMMARY | 2024-07-02 09:36 | XMS_ITS ---
Author Organization [facility] Address [address], [place] [id number] Care Team Providers Care Lumber Stacker Driver Name Role Phone JON VAILFER Primary Care Provider VANNESSA WORRELL Unavailable [phone] ALLERGIES No Known Allergies REASON FOR VISIT [...] (10-19 cigs/day) Section Notes: Patient lives in [place], [place] with 2 daughters. VITAL SIGNS Height 68 in 03/13/2024 Height-cm 172.72 cm 03/13/2024 Encounters Encounter Location Date Provider Diagnosis [address] [place] [id number] 03/13/2024 VANENSSA WORRELL Viral illness B34.9 ASSESSMENTS Encounter Date [...] * CLIFFORD GONZALESOB: 6 (58 yo F)Acc No.[id number]:03/13/2024 Patient:??MARIE GONZALES Provider:??VANNESSA WORRELL NP :1965?Age:58 Y?Sex:Fe male Date:03/13/2024 Phone: Address:[address] [place] [address] [id number] Pcp:NATASHA VAIL Subjective: * Chief Complaints: * ? sick * HPI: ?Patient Care Team:?Audio Visual Specialist:??Audio Visual Specialist: Dr. Lauren.?.??Plate Glass Grinder:??Lui Wells MA.?.??Orthopedic:???[facility].? Providers/Specialists: Urogynogologist: Dr. Saldivar [facility]: Dr. Waller Physiatry: Dr. Carr OBGYN: Aissatou Patton Brice. ?Visit info:? The patient consents to HIPAA [...] Yes, Daily 7-10. 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 ?Patient lives in [place], [place] with 2 daughters. * Medications:??TakingVitamin D [...] Shingrix Td/Tdap: UTD Hep A/Hep B: unknown CONFERENCE CENTER MANAGER: UTD SBE/Mammogram: UTD Eye Exam: Has Lasik Dental Exam: UTD Depression Scale: neg PHQ 9 Alcohol Misuse Screening: Neg Smoking Cessation: nonsmoker Screened HTN, diabetes, BMI addressed. * Follow Up:??2 - 3 Days (Reas on: swab/wellbeing) * Billing Information: * Visit Code:?? 28295 Office Visit, Est Pt., Level 3. * Procedure Codes:?? * Sign off status: Completed true * Provider:??VANNESSA WORRELL NP Date:?? History and Physical Notes * HPI (History of Present Illness) Category Sub-Category Detail Notes Category Not es Patient Care Team Audio Visual Specialist: Audio Visual Specialist: Dr. Bell. Providers/Specialist s: Urogynogologist: Dr. Saldivar [facility]: Dr. Waller Physiatry: Dr. Carr [facility] Plate Glass Grinder: Lui Wells M A. Orthopedic: [facility] Examination Category Sub-Category Detail Notes Category Not es General Examination GEN: NAD, speaking in full complete sentences, thoughts clear and appropriate; mildly ill appearing RESP: nonlabored breathing, no audible SOB/Wheezing but loose cough NEURO: AO x 3 PSYCH: judgment/insight intact, NL mood/affect
--- OUTSIDE RECORDS SUMMARY | 2024-07-02 09:36 | XMS_ITS ---
Author Organization [facility] Address [address] [place] [phone] Care Team Providers Care Investments Manager Name Role Phone NATASHA VAIL Primary Care Provider VANNESSA WORRELL Unavailable [phone] REASON FOR VISIT f/u fasting labs MEDICATIONS [...] 04/02/2024 Encounters Encounter Location Date Provider Diagnosis [facility], [address] [id number] 04/02/2024 VANNESSA WORRELL Other hyperlipidemia E78.49 and [...] * CLIFFORD GONZALESOB: 6 (58 yo F)Acc No.[id number]:04/02/2024 Progress Note Patient:??MARIE GONZALES Provider:??VANNESSA WORRELL NP :1965?Age:58 Y?Sex:Fe male Date:04/02/2024 Phone: Address:[address] [place] [address] , [place], [id number] Pcp:NATASHA VAIL Subjective: * Chief Complaints: * [...] 04/19) * Billing Information: * Visit Code:?? 01284 Office Visit, Est Pt., Level 4. * [...]
--- OUTSIDE RECORDS SUMMARY | 2024-07-02 09:36 | XMS_ITS | Patient Health Record ---
Author Organization [facility] Address [address] [place], [place] [phone] Care Team Providers Care Stud Setter Name Role Phone NATASHA VAIL Primary Care Provider VANNESSA WORRELL Unavailable [phone] ALLERGIES No Known Allergies REASON FOR REFERRAL Reason please refer pt [facility] [place] dx lumbar pain with radiculopathy Diagnosis 1 Lumbar radiculopathy (M54.16) Referral Organization [facility] Referring Provider First Name VANNESSA Referring Provider Last Name ANAID Referring Provider Speciality Preventive Medicine Referred Organization [facility] Referred Address [address], [phone], Referred Provider Specialty Physical The rapist General Notes BRANDON DEVI 0 09/15/2023 08:55:42 AM >order and demographics faxed to [facility] [phone] Referral Priority Routine Reason please refer to [facility] for MRI LS spine due to persistent lumbar radiculopathy Diagnosis 1 Lumbar radiculopathy (M54.16) Referral Organization [facility] Referring Provider First Name VANNESSA Referring Provider Last Name ANAID Referring Provider Speciality Preventive Medicine Referred Organization [facility] Referred Address [address], [place],[phone], Referred Provider Specialty Diagnostic R adiology General Notes BRANDON DEVI 0 11/15/2023 10:45:48 AM >order form, demographics, insurance info, order and office note faxed to [facility] [phone]. Insurance may request PT notes which does not look as though they are in our posession, BRANDON DEVI 12/22/2023 02:34:27 PM >order form refaxed to [facility] with corrected patient [phone] Referral Priority Routine Reason please refer pt to [facility] for MRI lumbar spine; does not want to use [facility] Diagnosis 1 Lumbar radiculopathy (M54.16) Referral Organization [facility] Referring Provider First Name VANNESSA Referring Provider Last Name [facility] Referring Provider Speciality Preventive Medicine Referred Organization [facility] Referred Address [address] [place] [id number], Referred Provider Specialty Diagnostic R adiology General Notes Irene Ty 12/31 11:53:02 AM >No PA needed per Ins. (please see attached doc.), Irene Ty 01/01/2024 12:09:45 PM >Please add PA - NA MRI document to faxed request., JACOB ALONZO 01/02/2024 08:37:40 AM > radiology Form, Referral, OV Note and Insurance information faxed to [facility] [phone], BRANDON DEVI 01/03/2024 02:39:53 PM >[facility] sent fax requesting auth info, Perry's response to request stating no precertification is required has been faxed to [facility] [phone]. Advised facility to please proceed with scheduling patient Referral Priority Routine Reason please refer pt to [facility] and include both MRI from this month and MRI from 2 years ago TY resend- office advised patient that they never received referral or MRI report Appt booked for 05/07/24 at 11:00am with Diagnosis 1 Lumbar radiculopathy (M54.16) Referral Organization [facility] Referring Provider First Name VANNESSA Referring Provider Last Name [facility] Referring Provider Speciality Preventive Medicine Referred Organization [facility] Referred Address [address] [place] [id number] Referred Provider Specialty Neurological Surgery General Notes BRANDON DEVI 1 04/18/2023 10:15:29 AM >appt request, demographics, insurance info, referral, office note, 2023 MRI, and 2021 MRI have been faxed to [facility] for Dr. Lopez [phone], BRANDON DEVI 03/14/2024 10:33:12 AM >Above info refaxed to [facility] for [phone] Referral Priority Routine MEDICATIONS Medication SIG (Take, [...] (10-19 cigs/day) Section Notes: Patient lives in [place], [place] with 2 daughters. Patient lives in [place] with 2 daughters. 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 Patient lives in [place] with 2 daughters. Patient lives in [place] with 2 daughters. Patient lives [place] with 2 daughters. Patient lives [place] with 2 daughters. Patient lives [place] with 2 daughters. Patient lives [place] with 2 daughters[place] Patient lives [place] with 2 daughters. Patient lives [place] with 2 daughters. Patient lives [place] with 2 daughters. Patient lives [place] with 2 daughters. Patient lives [place] with 2 daughters. Patient lives [place] with 2 daughters. Patient lives [place] with 2 daughters. Patient lives [place] with 2 daughters. Patient lives [place] with 2 daughters. Patient lives in [place] with 2 daughters. PROBLEMS Problem Type ICD Code Onset Dates Problem Status W/U Status Risk SNOMED Code Notes Problem Osteoarthritis, unspecified osteoarthritis type, unspecified site (M19.90) Active confirmed Osteoarthritis (083677816) Problem Other hyperlipidemia (E78.49) Active confirmed 27423287 Problem Vitamin D deficiency (E55.9) Active confirmed Vitamin D deficiency (07920079) Problem Elevated high sensitivity C-reactive protein (R79.82) Active confirmed 265543670253002 Problem Polyarthralgia (M25.50) Active confirmed 29331774 Problem Lumbar radiculopathy (M54.16) Active confirmed 051683812 Problem Herpes (B00.9) Active confirmed Herpes simplex viral infection (91248114) Problem Insulin resistance syndrome (E88.810) Active confirmed 833722184 Problem Fibromyalgia syndrome (M79.7) Active confirmed Fibromyalgi a (169769998) Problem Recurrent oral herpes simplex (B00.2) Active confirmed 160090623 VITAL SIGNS Heart Rate 77 /min 09/14/2023 Height-cm 172.72 cm 04/02/2024 Oximetry 96 % 09/14/2023 Blood pressure diastolic 68 mm Hg 09/14/2023 Weight-kg 77.29 kg 09/14/2023 Height 68 in 04/02/2024 Blood pressure systolic 102 mm Hg 09/14/2023 Weight 170.4 lbs 09/14/2023 BMI 25.91 kg/m2 09/14/2023 Encounters Encounter Location Date Provider Diagnosis [address] [place] [id number] 08/18/2023 VANNESSA WORRELL [address] [place] [id number] 09/19/2023 NATASHA VAIL Left shoulder pain, unspecified chronicity M25.512 [address] [place] [id number] 10/03/2023 NATASHA VAIL [address] [id number] 10/09/2023 NATASHA VAIL Left shoulder pain, unspecified chronicity M25.[address] [place], [place] [id number] 10/31/2023 NATASHA VAIL Bursitis of left shoulder M75.[address] [id number] 12/11/2023 NATASHA VAIL [address] [id number] 08/18/2023 VANNESSA WORRELL Polyarthralgia M25.5 0 ; Elevated high sensitivity C-reactive protein R79.82 ; Other hyperlipidemia E78.49 and Insulin resistance syndrome E88.[address] [id number] 09/14/2023 VANNESSA WORRELL Encounter for screening for [...] unspecified site M19.90 and Pre-op evaluation Z01.[address] [id number] 09/29/2023 VANNESSA WORRELL Polyarthralgia M25.5 0 and Lumbar radiculopathy M54.[address] [id number] 10/17/2023 VANNESSA WORRELL Fibromyalgia syndrom e M79.7 and Polyarthralgia M25.[address] [id number] 11/14/2023 NATASHA VAIL Bursitis of left shoulder M75.[address] [id number] 11/14/2023 VANNESSA WORRELL Lumbar radiculopathy M54.16 ; Other hyperlipidemia E78.49 and Polyarthralgia M25.[address] [id number] 11/28/2023 NATASHA VAIL Herpes B00.9 and Bursitis of left shoulder M75.[address] [id number] 12/29/2023 VANNESSA WORRELL Lumbar radiculopathy M54.16 ; Polyarthralgia M25.50 ; Vitamin D deficiency E55.9 ; Other hyperlipidemia E78.49 and Elevated high sensitivity C-reactive protein R79.[address] [id number] 02/13/2024 VANNESSA WORRELL Lumbar radiculopathy M54.16 and Other hyperlipidemia E78.[address] [id number] 03/13/2024 VANNESSA WORRELL Viral illness B34.[address] [id number] 04/02/2024 VANNESSA WORRELL Other hyperlipidemia E78.49 and Elevated liver function tests R79.[address] [id number] 07/04/2023 VANNESSA WORRELL Fibromyalgia syndrom e M79.[address] [id number] 07/25/2023 VANNESSA WORRELL Rheumatoid factor positive R76.8 and Insulin resistance syndrome E88.[address] [id number] 09/18/2023 VANNESSA WORRELL [address] [id number] 03/25/2024 VANNESSA WORRELL ASSESSMENTS Encounter Date Diagnosis [...] need to follow up with new provider 10/17/2023 Fibromyalgia syndrome (ICD-10 - M79.7) Noted improvement in physical symptoms Still continueing with nonpharmacologic means as well Will increase Lyrica to therapeutic dose and agreed on one-time nightly dose instead Will re-eval in 4 weeks 03/13/2024 Viral illness (ICD-10 - B34.9) Question [...] HPI, pt now choosing to go to [facility] for her MRI She continues to [...] visit, education and coordination of care. 11/14/2023 Lumbar radiculopathy (ICD-10 - M54.16) Will order MRI LS spine since she continues to have pain despite all discussed interventions in HPI 09/19/2023 Left shoulder pain, unspecified chronicity (ICD-10 [...] pt according to her my chart at [facility] in 202509/14/2023 Polyarthralgia (ICD-10 - M25.50) Sigificant decrease in her inflammatory markers Was dx with fibromyalgia by rheumatology within the last 6 mo Failed Deloxetine due to nausea She did not go to [facility] for her blood work so did not get the Analyzer test Will trial lyrica as she is having neuropathic pain in her left leg currently Will re-eval 2 weeks 08/18/2023 Polyarthralgia (ICD-10 - M25.50) Very concerned with her signiicant inflammatory markers She initially was requesting referral to Dr Pederson ([facility]) even though she already saw another bottoming machine operator there Shared decision making, decided that she would like to get the full analyzer test that [facility] offers first Will repeat markers She is also wondering about her magesium with muscle cramps 07/25/2023 Rheumatoid factor positive (ICD-10 - R76.8) 07/04/2023 Fibromyalgia syndrome (ICD-10 - M79.7) 11/14/2023 Bursitis of left shoulder (ICD-10 - [...] for repeat shock wave and is calling [employer] regarding getting the machine 08/18/2023 Elevated high sensitivity C-reactive protein (ICD-10 - R79.82) Significant elevated CRP Gave her options through [facility] a well She continues to follow a KETO diet pretty strictly with minimal inflammatory foods Will repeat level 09/29/2023 Lumbar radiculopathy (ICD-10 - M54.16) Has apt with PT this month Tolerating Lyrica as well Will re eval in 3 weeks and possibly increase to therapeutic dose 07/25/2023 Insulin resistance syndrome (ICD-10 - E88.810) 12/29/2023 Polyarthralgia (ICD-10 - M25.50) She has had improvement in her left shoulder pain with the cortisone injection She is still looking to obtain an IFC machine for which she has called the companies that her insurance is contracted with and they do not carry the unit Discussed payment plans available through [employer] if she wants to go that route 09/14/2023 Encounter for screening mammogram for malignant neoplasm of breast (ICD-10 - Z12.31) Per pt UTD Also getting breast augmentation end of month 11/14/2023 Other hyperlipidemia (ICD-10 - E78.49) Shared [...] was not covered under her plan 12/29/2023 Vitamin D deficiency (ICD-10 - E55.9) will recheck levels To take OTC 2000iu daily 11/14/2023 Polyarthralgia (ICD-10 - M25.50) Will continue the Cymbalta at this time Re assess in 6 weeks 09/14/2023 Encounter for screening for depression (ICD-10 - Z13.31) Neg PHQ9 08/18/2023 Other hyperlipidemia (ICD-10 - E78.49) Pt is interested in repeat levels since her significant weight loss Discussed higher fat component of keto Will hold off on statin until resulted Her exercise is limited due to her pain 09/14/2023 Screening for substance abuse (ICD-10 - Z13.89) Neg CAGE AID 08/18/2023 Insulin resistance syndrome (ICD-10 - E88.810) She has the pa and has been monitoring her blood sugars with improved levels Will repeat levels 12/29/2023 Other hyperlipidemia (ICD-10 - E78.49) Tolerating [...] Note Rx for IFC machine faxed to [facility] 12/29/2023 Other Total time spen t with [...] Name Order Date CARDIO IQ(R) LIPID PANEL (49561) 024 COMPREHENSIVE METABOLIC PANEL (60910) CBC (INCLUDES DIFF/PLT) (6399) 4 CARDIO IQ(R) HS CRP (40579) 12/29/2023 CARDIO IQ(R) APOLIPOPROTEIN B (10821) CARDIO IQ(R) VITAMIN D, 25 HYDROXY (9173 5) 12/29/2023 Insurance Providers Payer Name Payer Address Payer Phone Subscriber Number Group Number Insured Name Patient Relationship to Insured Coverage Start Date Coverage End Date [employer] [address] [place] [address] [id number] MARIE GONZALES Self - patient is the insured MEDICAL (GENERAL) HISTORY Medical History History ICD Code Arthritis Chicken Pox as a child Colon Polyp Surgical History Surgery Date(Month/Year) Punch Biopsy of the nose (2) 2022 Scrapping of the tip of the left nostril 2021 [place] Teeth Removed 1984 Breast Augmentation 2003 Colonoscopy 2016 MRI of lower back - compressed disc cart alidge thinning 2021 Lasik surgery 2020
--- OUTSIDE RECORDS SUMMARY | 2024-07-02 09:37 | XMS_ITS ---
Author Organization [facility] Address [address] [place], [place] [phone] Care Team Providers Care Claims Sorter Name Role Phone NATASHA VAIL Primary Care Provider VANNESSA WORRELL Unavailable [phone] REASON FOR VISIT Lab result request Encounters Encounter Location Date Provider Diagnosis [facility], [address] [id number] 03/25/2024 VANNESSA WORRELL PLAN OF TREATMENT No Information Progress Notes * CLIFFORD GONZALESOB: 6 (58 yo F)Acc No.[id number]:03/25/2024 Patient:??MARIE GONZALES :1965?Age:58 Y?Sex:Fe male Phone: Address:[address] [place] [address] * true * Date:??
--- OUTSIDE RECORDS SUMMARY | 2024-07-02 09:37 | XMS_ITS | Clinical Summary ---
Author Organization [facility] [address] [facility] Address [address] [place] [address] Phone Care Team Providers Care Inside Sales Lead Name Role Phone Deya Mixon MD Primary Care Provider [phone] Allergies No known active allergies Medications estradioL [...] Date Site/Laterality Comments BREAST REDUCTION - PROCEDURE: [facility] BREAST REDUCTION OTHER SURGICAL HISTORY 05/29/06 PROCEDURE: [facility] CRYOTHERAPY CO2 SLUSH LIQUID N2 ACNE; COMMENT: [...] C Screening (08/04/2021) Hepatitis C Screening Abstracted [facility] Provider HEALTH MAINTENANCE Final Result * Cervical Cancer Screening: HPV (04/01/2019) Pathologist [facility] Cervical Cancer Screening: HPV Negative, abstracted [facility] Provider HEALTH MAINTENANCE Final Result * Colonoscopy (04/22/2016) Pathologist [facility] Colonoscopy No interpretation , abstracted Anatomical Region Laterality Modality Other [facility] Provider HEALTH MAINTENANCE Final Result from Last 3 Months or Most Recently Relevant to Health Maintenance Insurance [place]) Care Teams Inside Sales Lead Relationship Specialty Start Date End Date Deya Mixon MD PCP - General 08/14/23
== END 2024-07-02 09:47 | disposition home or self-care (01) ==
LOC: HO.RHES 08:58
PROVIDERS: Visit Provider Internal Medicine Rheumatology
DX: M79.10 Myalgia, unspecified site (principal); M75.102 Unspecified rotator cuff tear or rupture of left shoulder, not specified as traumatic; M25.511 Pain in right shoulder; M25.512 Pain in left shoulder
CPT/HCPCS: 99214

== ENCOUNTER → 2024-07-02 08:58 | Outpatient (BNVA) | payer BC, SELFPAY | PROVIDERS: Visit Provider Internal Medicine Rheumatology ==

== ENCOUNTER 2024-07-05 10:25 | Outpatient (REF) | payer BC, SELFPAY ==
--- OUTSIDE RECORDS SUMMARY | 2024-07-05 12:06 | XMS_ITS | Clinical Summary ---
Author Organization [facility] [address] [facility] lding Address [address] [place] [address] Phone Care Team Providers Care Mutual Fund Analyst Name Role Phone Deya Mixon MD Primary Care Provider [phone] Allergies No known active allergies Medications estradioL [...] Date Site/Laterality Comments BREAST REDUCTION - PROCEDURE: CT BREAST REDUCTION OTHER SURGICAL HISTORY 05/29/06 PROCEDURE: CT CRYOTHERAPY CO2 SLUSH LIQUID N2 ACNE; COMMENT: [...] C Screening (08/04/2021) Hepatitis C Screening Abstracted [facility] Provider HEALTH MAINTENANCE Final Result * Cervical Cancer Screening: HPV (04/01/2019) Pathologist [facility] Cervical Cancer Screening: HPV Negative, abstracted [facility] Provider HEALTH MAINTENANCE Final Result * Colonoscopy (04/22/2016) Pathologist [facility] Colonoscopy No interpretation , abstracted Anatomical Region Laterality Modality Other [facility] Provider HEALTH MAINTENANCE Final Result from Last 3 Months or Most Recently Relevant to Health Maintenance [place] Care Teams Mutual Fund Analyst Relationship Specialty Start Date End Date Deya Mixon MD PCP - General 08/14/23
[2024-07-05 12:47] LABS: Alanine Aminotransferase 11 U/L (0-31); Aspartate Amino Transferase 19 U/L (5-31); C Reactive Protein 0.67 mg/dL (< or = 0.50)
[2024-07-05 13:16] LABS: Erythrocyte Sedimentation Rate 6 MM/HR (0-20)
[2024-07-10 11:43] LABS: Aldolase 3.1 U/L (<=8.1)
== END 2024-07-05 10:26 | disposition home or self-care (01) ==
LOC: HO.LAB 10:25
PROVIDERS: Absent Provider Internal Medicine Rheumatology
DX: M62.81 Muscle weakness (generalized) (principal)
CPT/HCPCS: 36415; 82085; 82550; 84450; 84460; 85652; 86140

== ENCOUNTER 2024-07-05 10:25 | Outpatient (AMB) | payer BC, SELFPAY ==
[2024-07-05 10:44] VITALS: BP 128/84; PULSE 63; TEMP 36.3; O2SAT 98; BMI 27.4
--- NOTE | 2024-07-05 10:44 | A.OFFPC_ITS ---
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 Accompanied by: Self / Same As Patient Allergies No Known Allergies Allergy (Verified 07/05/24 10:56) Medication List - Last Reconciled 07/05/24 by BARBARA Robledo acyclovir 5% topical acyclovir 400 mg PO DAILY 90 days blood-glucose sensor (FreeStyle Pa 3 Sensor device) As directed cholecalciferol (vitamin D3) mcg PO estradiol 2 mg PO DAILY levonorgestrel (Mirena) intrauterine vitamin B complex 1 tab PO DAILY Tobacco use date assessed: 07/05/24 Dental Screening Dental Screen Date: 07/05/24 Did you have a dental visit in the last 12 months?: Yes Did you have a dental problem in the last 6 months where you did not have access to dental care?: No Was dental information given to patient?: Patient has dentist HPI hld/Liver enzymes HPI Details The patient is a 58-year-old female presenting evaluation of hypercholesterolemia and elevated liver enzymes. She has a history of elevated cholesterol previously managed with statin therapy, which was discontinued due to elevated liver enzymes. Discontinuation of the statin resulted in normalized liver function test results. Hypercholesterolemia therapy options are being considered, including ezetimibe (Zetia). The patient complains of chronic musculoskeletal pain, notably in the left shoulder and lower back. On MRI, tears were identified in the left rotator cuff, along with signs of osteoarthritis in the spine. The pain affects her daily activities, including golf, though continuation of physical activity is advised. The patient expresses interest in surgical options for the rotator cuff. She reports relief from muscle aches post-statin cessation. Familial cardiovascular history heightens her risk for hypercholesterolemia-related complications. Her ASCVD risk 1.9%-low risk for cardiovascular event, however, this is not add the familial cardiovascular history to the evaluation of the risk score. The patient is requesting and referral to [facility], and was Dr. Jay Jimenez for her ongoing spinal issues. He is also requesting and referral to [facility] for the to tears in her left shoulder rotator cuff. PFSH Medical History Disc degeneration, lumbar Colon polyp Chickenpox Arthritis Surgical History H/O colonoscopy [place] teeth removed History of biopsy H/O laser assisted in situ keratomileusis S/P bilateral breast reduction Family History Maternal Grandmother Cancer Maternal Grandfather Heart attack Paternal Grandmother Stroke Father Diabetes type 2 Heart disease Mother Heart disease Brother Cancer of kidney Social History Household Members Other:: Daughter Housing: House Alcohol intake: current Alcohol intake frequency: a few times a week Patient Tobacco Use Status: Never used Tobacco e-Cigarette/Vaping Use: Never Used service: No Current occupational status: employed 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 1. Little interest or pleasure in doing things: not at all 2. Feeling down, depressed, or hopeless: not at all 3. Trouble falling or staying asleep, or sleeping too much: not at all 4. Feeling tired or having little energy: not at all 5. Poor appetite or overeating: not at all 6. Feeling bad about yourself - or that you are a failure or have let yourself or your family down: not at all 7. Trouble concentrating on things, such as reading the newspaper or watching television: not at all 8. Moving or speaking so slowly that other people could have noticed. Or the opposite - being so fidgety or restless that you have been moving around a lot more than usual: not at all 9. Thoughts that you would be better off or of hurting yourself in some way: not at all Total score: 0 Depression Screening Interpretation: Negative Depression Screening Done: Yes Source: Developed by Drs. William Ortiz, Aliyah Bartlett, Hussein Ann and colleagues, with an educational susie from [email or web address]. Thrive Questionnaire Date Thrive assessed: 07/05/24 I am a: Patient What is your living situation today?: I have a steady place to live Within the past 12 months, did the food you bought not last and you didn't have the money to get more?: Never true Within the past 12 months, did you worry whether your food would run out before you got money to buy more?: I choose not to answer this question Do you have trouble paying for medicines?: I choose not to answer this question Do you have trouble getting transportation to medical appointments?: I choose not to answer this question Do you have trouble paying your heating and electricity bill?: I choose not to answer this question Do you have trouble taking care of your child, family member or friend?: I choose not to answer this question Do you have trouble with day-to-day activities such as bathing, preparing meals, shopping, managing finances, etc.?: I choose not to answer this question Are you currently unemployed and looking for a job?: I choose not to answer this question Are you interested in more education?: I choose not to answer this question Please select the resources that you would like help with: None Currently or been in a relationship where the following occur: I choose not to answer THRIVE Score: 0 AUDIT C Alcohol Use Questionnaire (AUDIT-C) 1. How often do you have a drink containing alcohol?: 2-3 times a week 2. How many drinks containing alcohol do you have on a typical day when you are drinking?: 1 or 2 3. How often do you have six or more drinks on one occasion?: Never Total Score: 3 LOC-7 AMB Questionnaire LOC-7 Date LOC - 7 assessed: 07/05/24 Feeling nervous, anxious, or on edge: 0 = Not at all Not being able to stop or control worryin = Not at all Worrying too much about different things: 0 = Not at all Trouble relaxin = Not at all Being so restless that it is hard to sit still: 0 = Not at all Becoming easily annoyed or irritable: 0 = Not at all Feeling afraid as if something awful might happen: 0 = Not at all Total LOC-7 score (0-4 normal; 5-9 mild; 10-14 moderate; 15-21 severe): 0 Source: Developed by Drs. William Ortiz, Aliyah Bartlett, Hussein Ann and colleagues, with an educational susie from [employer]. Review of Systems Const Denies headache(s) Eyes Denies loss of vision ENT Denies vertigo, Denies dizziness, Denies headache(s) and Denies sore throat Card Denies chest pain, Denies leg edema and Denies lightheadedness Resp Denies cough, Denies hemoptysis and Denies wheezing GI Denies abdominal pain, Denies melena, Denies constipation, Denies diarrhea and Denies vomiting Denies urinary frequency, Denies dysuria and Denies urinary urgency Musc Reports back pain (Lower back), Reports arthralgias (both shoulders, worse in the left shoulder), Denies joint swelling, Reports muscle cramps (Ongoing- decreased some since stopping statin), Denies numbness and Denies tingling Neuro Denies Abnormal speech present, Denies behavioral changes, Denies vertigo, Denies dizziness, Denies headache(s), Denies loss of vision, Denies memory loss, Denies numbness and Denies tingling Psych Denies anxiety, Denies behavioral changes, Denies depression, Denies memory loss and Denies panic attacks Juan Jose/Lymph Denies easy bleeding and Denies easy bruising Aller/Immun Denies wheezing Physical exam (Primary Care) Vital Signs: Last Vital Signs Temp 97.3 F 07/05/24 10:44 Pulse 63 07/05/24 10:44 BP 128/84 07/05/24 10:44 Pulse Ox 98 07/05/24 10:44 Oxygen Delivery Method Room Air 07/05/24 10:44 BMI result Body Mass Index 27.4 Tobacco/Smoking Status: Tobacco use Status Tobacco use date assessed 07/05/24 07/05/24 10:49 Patient Tobacco Use Status Never used Tobacco 07/05/24 10:48 e-Cigarette/Vaping Use Never Used 07/05/24 10:55 PHQ-9: PHQ-9 Score PHQ-9: Total score 0 07/06/24 08:37 Depression Screening Interpretation: Negative Thrive Assessment: Date of Thrive Assessment Date Thrive assessed 07/05/24 07/05/24 10:52 Currently or been in a relationship where the following occur: I choose not to answer Const General: healthy appearing, no acute distress, alert and awake Nutritional Appearance: well nourished Orientation/consciousness: oriented to person, oriented to place and oriented to time HENMT Ears: TM's normal bilaterally General nose exam: Normal nasal mucous membranes and turbinates present Eyes Conjunctivae: conjunctivae normal Sclerae: sclerae normal Pupils: Equal, round and reactive pupils present Neck Neck: Yes no lymphadenopathy and Yes no JVD Thyroid: Thyroid normal Carotids: no bruits Resp Effort & Inspection: normal respiratory effort and not tachypneic Auscultation: no crackles, no rales, no rhonchi and no wheezes Cardio Rate: regular rate Rhythm: regular rhythm Heart sounds: no murmurs and normal S1 and S2 GI Palpation (GI): Soft to palpation, nontender, no hepatomegaly and no splenomegaly Auscultation: normal bowel sounds Skin General skin exam: no rashes or lesions noted and dry skin Neuro General: oriented to person, oriented to place and oriented to time Cranial nerves: Yes Equal, round and reactive pupils present Speech: No Abnormal speech present Gait exam (Neuro): Normal gait present Motor exam (neuro): no tremor noted Extrem Right upper extremity: full ROM and shoulder/upper arm Details: tenderness Left upper extremity: full ROM and shoulder/upper arm Details: tenderness Location: of the proximal humerus Right lower extremity: full ROM; no edema Left lower extremity: full ROM; no edema Psych Mental Status: mental status grossly normal Speech and movement: Normal speech and movement present Affect: normal affect Attitude: cooperative Thought process: Normal thought process present Results Reviewed Results Reviewed: Laboratory Tests 06/17/24 06/17/24 09:12 09:22 WBC 7.6 RBC 4.10 L Hgb 13.0 Hct 38.7 MCV 94.4 MCH 31.7 RDW 12.7 Plt Count 219 Sodium 141 Potassium 4.5 Chloride 106 Carbon Dioxide 27 Anion Gap 13 BUN 15 Creatinine 0.71 Estimated GFR > 60 Fasting Glucose 101 H Calcium 9.1 Total Bilirubin 0.4 AST 20 ALT 16 Alkaline Phosphatase 50 Total Protein 6.8 Albumin 4.0 Triglycerides 114 Cholesterol 258 H LDL Cholesterol, Calc 159 H HDL Cholesterol 77 25-OH Vitamin D Total 55.6 TSH 2.29 Urine Color Yellow Urine Appearance Clear Urine pH 6.0 Ur Specific [place] 1.020 Urine Protein Negative Urine Glucose (UA) Negative Urine Ketones Negative Urine Blood Negative Urine Nitrite Negative Ur Leukocyte Esterase Negative Coding Level of Care Code Est Pt Level 4 (39632) Diagnoses Nontraumatic tear of left rotator cuff, unspecified tear extent M75.102 Rotator cuff tear extent: unspecified tear extent Rotator cuff tear trauma status: nontraumatic Chronic bilateral low back pain, unspecified whether sciatica present M54.50; G89.29 Chronicity: chronic Back pain laterality: bilateral Sciatica presence: unspecified whether sciatica present Elevated liver enzymes R74.8 Pure hypercholesterolemia E78.00 Hyperlipidemia type: pure hypercholesterolemia Time Spent (min) 37 Assessment & Plan Assessment & Plan (1) Rotator cuff tear, left: Code(s): M75.102 - Unspecified rotator cuff tear or rupture of left shoulder, not specified as traumatic Category: Medical Qualifiers: Rotator cuff tear extent: unspecified tear extent Rotator cuff tear tra panda status: nontraumatic Qualified Code(s): M75.102 - Unspecified rotator cuff tear or rupture of left shoulder, not specified as traumatic Plan: MRI on 06/13/2024 shows partial tears to infraspinatus. We will refer the patient to Orthopedics (2) Lower back pain: Code(s): M54.50 - Low back pain, unspecified Category: Medical Qualifiers: Chronicity: chronic Back pain laterality: bilateral Sciatica presence: unspecified whether sciatica present Qualified Code(s): M54.50 - Low back pain, unspecified; G89.29 - Other chronic pain Plan: Ongoing back pain, MRI showed lumbar L3-4 and L4-5 and partial sacralization of L5 with an incomplete L5-S1 disc, according to pain management note. Patient received cortisone injection in February with temporary relief. The patient is looking to possibly receiving another injection. The patient was referred to [facility] in [place], per her request. (3) Elevated liver enzymes: Code(s): R74.8 - Abnormal levels of other serum enzymes Category: Medical Plan: The patient liver enzymes are back to normal after stop her atorvastatin. (4) HLD (hyperlipidemia): Code(s): E78.5 - Hyperlipidemia, unspecified Category: Medical Qualifiers: Hyperlipidemia type: pure hypercholesterolemia Qualified Code(s): E78.00 - Pure hypercholesterolemia, unspecified Plan: Total cholesterol and LDL continues to be elevated. According to ASCVD her risk 1.9%-low risk, which does not factor in the patient familial history of cardiovascular disease. We will start the patient on Zetia 10 mg and recheck lipids in 3 months. Plan Patient to follow up in 3 months and to complete scheduled labs prior to that visit. Orders: Orders Lipid Panel 3 Months E78.00 - Pure hypercholesterolemia, unspecified, R74.8 - Abnormal levels of other serum enzymes Comprehensive [place]. Panel Fast 3 Months E78.00 - Pure hypercholesterolemia, unspecified, R74.8 - Abnormal levels of other serum enzymes Referrals Neuro Spine Referral M54.16 - Radiculopathy, lumbar region Orthopedics Referral M75.102 - Unspecified rotator cuff tear or rupture of left shoulder, not specified as traumatic Medications: New ezetimibe 10 mg PO DAILY 90 tabs 3RF E78.00 - Pure hypercholesterolemia, unspecified
--- OUTSIDE RECORDS SUMMARY | 2024-07-05 10:56 | XMS_ITS | Clinical Summary ---
Author Organization [facility] [address] [facility] lding Address [address] [place] [address] Phone Care Team Providers Care Handle Bar Assembler Name Role Phone Deya Mixon MD Primary Care Provider [phone] Allergies No known active allergies Medications estradioL [...] Date Site/Laterality Comments BREAST REDUCTION - PROCEDURE: [place] BREAST REDUCTION OTHER SURGICAL HISTORY 05/29/06 PROCEDURE: [place] CRYOTHERAPY CO2 SLUSH LIQUID N2 ACNE; COMMENT: [...] C Screening (08/04/2021) Hepatitis C Scre[place] [facility] [place] Final Result * Cervical Cancer Screening: HPV (04/01/2019) Pathologist [facility] Cervical Cancer Screening: HPV Negative, [place]ed [facility] [place]TENANCE Final Result * Colonoscopy (04/22/2016) Pathologist [facility] Colonoscopy No interpretation , abstracted Anatomical Region Laterality Modality Other [facility] [place]TENANCE Final Result from Last 3 Months or Most Recently Relevant to Health Maintenance [place] Care Teams Handle Bar Assembler Relationship Specialty Start Date End Date Deya Mixon MD PCP - General 08/14/23
== END 2024-07-05 11:28 | disposition home or self-care (01) ==
LOC: HO.HMCH 10:26
DX: M75.102 Unspecified rotator cuff tear or rupture of left shoulder, not specified as traumatic (principal); M54.50 Low back pain, unspecified; G89.29 Other chronic pain; R74.8 Abnormal levels of other serum enzymes; E78.00 Pure hypercholesterolemia, unspecified

== ENCOUNTER 2024-07-19 09:52 | Outpatient (AMB) | payer BC, SELFPAY ==
[2024-07-19 09:59] VITALS: BMI 27.4
--- NOTE | 2024-07-19 09:59 | MHC.OFFVIS ---
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 States her left is worse. No injury she can recall. Pain started last September and has worsen since. Patient has tried and failed injections, shock therapy, and P.T. Patient was being treated by Pain Management who referred her for PT with no relief. 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 States her left is worse. No injury she can recall. Pain started last September and has worsen since. Patient has tried and failed injections, shock therapy, and P.T. Patient was being treated by Pain Management who referred her for PT with no relief. [facility] Medical History Disc degeneration, lumbar Colon polyp Chickenpox Arthritis Surgical History H/O colonoscopy [place] teeth removed History of biopsy H/O laser assisted in situ keratomileusis S/P bilateral breast reduction Family History Maternal Grandmother Cancer Maternal Grandfather Heart attack Paternal Grandmother Stroke Father Diabetes type 2 Heart disease Mother Heart disease Brother Cancer of kidney Social History Household Members Other:: Daughter Housing: House Alcohol intake: current Alcohol intake frequency: a few times a week Patient Tobacco Use Status: Never used Tobacco e-Cigarette/Vaping Use: Never Used service: No Current occupational status: employed 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 Otherwise unremarkable exam. Results Reviewed Results Reviewed: MRI IMPRESSION: 06/25/24 1. Rim rent type tearing of the anterior supraspinatus tendon, and partial undersurface insertional tearing of the infraspinatus tendon. No full-thickness tear or tendinous retraction. 2. There is approximately 30% tearing and fraying of the subscapularis tendon undersurface. No full-thickness tear. 3. Minimal degenerative arthritis in the glenohumeral joint without cartilage abnormality or subchondral bone plate edema. No joint effusion. 4. Mild AC joint arthritis with minimal undersurface and superior surface spurring. No supraspinatus outlet stenosis. 5. The glenoid labrum appears grossly intact. Assessment & Plan Assessment & Plan (1) Rotator cuff tear, left: Code(s): M75.102 - Unspecified rotator cuff tear or rupture of left shoulder, not specified as traumatic Category: Medical Qualifiers: Rotator cuff tear extent: unspecified tear extent Rotator cuff tear trauma status: nontraumatic Qualified Code(s): M75.102 - Unspecified rotator cuff tear or rupture of left shoulder, not specified as traumatic Plan: This is an active 58 yo F with a partial thickness tear of her supraspinatus. She is worried that if she doesn't treat this surgically it will worsen. I discussed this with her and re assured her that the liklihood of progression is not high but if ther are worsening symptoms and continued pain surgery may be warranted. At this time, however, I recommend continue HEP and follow up with me in 3 [facility]. She wants to play gold this summer and I think it is reasonable to do so and that the risks are relatively low. Coding Level of Care Code Est Pt Level 4 (93475) Diagnoses Nontraumatic tear of left rotator cuff, unspecified tear extent M75.102 Rotator cuff tear extent: unspecified tear extent Rotator cuff tear trauma status: nontraumatic
--- OUTSIDE RECORDS SUMMARY | 2024-07-19 10:06 | XMS_ITS | Clinical Summary ---
Author Organization [facility] [address] [facility] lding Address [address] [place] [address] Phone Care Team Providers Care Special Agent Name Role Phone Deya Mixon MD Primary Care Provider [phone] Allergies No known active allergies Medications estradioL [...] Date Site/Laterality Comments BREAST REDUCTION - PROCEDURE: [place] BREAST REDUCTION OTHER SURGICAL HISTORY 05/29/06 PROCEDURE: [place] CRYOTHERAPY CO2 SLUSH LIQUID N2 ACNE; COMMENT: [...] C Screening (08/04/2021) Hepatitis C Screening Abstracted [facility] Provider HEALTH MAINTENANCE Final Result * Cervical Cancer Screening: HPV (04/01/2019) Pathologist [facility] Cervical Cancer Screening: HPV Negative, abstracted [facility] Provider HEALTH MAINTENANCE Final Result * Colonoscopy (04/22/2016) Pathologist [facility] Colonoscopy No interpretation , abstracted Anatomical Region Laterality Modality Other [facility] Provider HEALTH MAINTENANCE Final Result from Last 3 Months or Most Recently Relevant to Health Maintenance [place] Care Teams Special Agent Relationship Specialty Start Date End Date Deya Mixon MD PCP - General 08/14/23
== END 2024-07-19 10:51 | disposition home or self-care (01) ==
LOC: HO.HOS 09:53
PROVIDERS: Visit Provider Orthopaedic Surgery
DX: M75.102 Unspecified rotator cuff tear or rupture of left shoulder, not specified as traumatic (principal)
CPT/HCPCS: 99214

== ENCOUNTER → 2024-07-19 09:52 | Outpatient (BNVA) | payer BC, SELFPAY | PROVIDERS: Visit Provider Orthopaedic Surgery ==

== ENCOUNTER 2024-09-03 10:24 | Outpatient (REF) | payer BC, SELFPAY ==
--- NOTE | ~2024-09-03 | XR_ITS ---
CLINICAL HISTORY: M25.511 - Pain in right shoulder Radiographs of the right shoulder, 2 views Comparison: None available Findings: No fracture or dislocation. Narrowed acromiohumeral interval. Mild degenerative change. Bone mineralization is normal. No soft tissue swelling. Impression: No acute findings. Narrowed acromiohumeral interval may indicate rotator cuff pathology. Mild degenerative change. Radiographs of the left shoulder, 3 views Comparison: MR - MR SHOULDER LT WO CON - 06/13/24 19:33 EDT Findings: Limited AP Grashey view only includes the acromioclavicular joint. The axial seated view does not include the osseous structures. No fracture or dislocation. Normal acromiohumeral interval. Mild degenerative change. Bone mineralization is normal. No soft tissue swelling. There is subtlerotator cuff calcification seen on the neutral AP view. Impression: Calcific tendinitis. Mild degenerative change. This document has been electronically signed by: Willow Chester MD on 09/04/2024 15:41:31
--- OUTSIDE RECORDS SUMMARY | 2024-09-04 11:15 | XMS_ITS | Clinical Summary ---
Author Organization [facility] [address] [facility] lding Address [address] [facility] [address] Phone Care Team Providers Care Trial Manager Name Role Phone Deya Mixon MD Primary Care Provider [phone] Allergies No known active allergies Medications estradioL [...] Date Site/Laterality Comments BREAST REDUCTION - PROCEDURE: [place] BREAST REDUCTION OTHER SURGICAL HISTORY 05/29/06 PROCEDURE: FL CRYOTHERAPY CO2 SLUSH LIQUID N2 ACNE; COMMENT: [...] Result * Hepatitis C Screening (08/04/2021) Pathologist [facility] Hepatitis C Screening Abstracted [facility] Provider HEALTH MAINTENANCE Final Result * Cervical Cancer Screening: HPV (04/01/2019) Pathologist [facility] Cervical Cancer Screening: HPV Negative, abstracted [facility] Provider HEALTH MAINTENANCE Final Result * Colonoscopy (04/22/2016) Pathologist [facility] Colonoscopy No interpretation , abstracted Anatomical Region Laterality Modality Other Historical Provider HEALTH MAINTENANCE Final Result from Last 3 Months or Most Recently Relevant to Health Maintenance [facility] [id number] [place] Care Teams Trial Manager Relationship Specialty Start Date End Date Deya Mixon MD PCP - General 08/14/23
== END 2024-09-03 10:25 | disposition home or self-care (01) ==
LOC: HO.HOSX 10:24
PROVIDERS: Visit Provider Physician Assistant
DX: M75.102 Unspecified rotator cuff tear or rupture of left shoulder, not specified as traumatic (principal); M25.511 Pain in right shoulder
CPT/HCPCS: 20610; 73030; J1010; J2003

== ENCOUNTER 2024-09-03 14:11 | Outpatient (AMB) | payer BC, SELFPAY ==
--- NOTE | 2024-09-03 14:29 | A.OFFVIS_ITS ---
Vital Signs 09/03/24 14:35 Height 5 ft 8 in Weight 180 lb BMI 27.4 Handedness Right Intake Visit Reasons: OV- Bilateral shoulder pain Intake Note: Calista is a 59 year old right hand dominant female who presents today for a follow of her bilateral shoulder pain. States she that she did physical therapy with [facility] for 8 weeks with no help. She was prescribed Celebrex by . Patient notices that taking Celebrex gave her mild relief. Allergies No Known Allergies Allergy (Verified 09/03/24 14:33) HPI HPI OV- Bilateral shoulder pain: Details: Ms. Watson is a 59-year-old right-hand dominant female who presents to the office today for follow-up of bilateral shoulder pain. Left shoulder is reportedly more painful than the right. She did take Celebrex which did help with some of the pain making it slightly more manageable. She was seen with Dr. Ramos on 07/19/2024 where the discussion of a partial-thickness tear of the supraspinatus was discussed. At that appointment Dr. Ramos did not recommend surgical intervention at that time and requested her to continue with her home exercise program provided by physical therapy and follow up with him in 3 months. Additionally, she has also seen pain management and discussed the role of PRP injections and cortisone injections. She last received a cortisone injection in October that lasted her roughly 3 months. [facility] Medical History Disc degeneration, lumbar Colon polyp Chickenpox Arthritis Surgical History H/O colonoscopy [place] teeth removed History of biopsy H/O laser assisted in situ keratomileusis S/P bilateral breast reduction Family History Maternal Grandmother Cancer Maternal Grandfather Heart attack Paternal Grandmother Stroke Father Diabetes type 2 Heart disease Mother Heart disease Brother Cancer of kidney Social History (Updated 09/03/24 @ 14:34 by Aayush Aleman) Household Members Other:: Daughter Housing: House Alcohol intake: current Alcohol intake frequency: a few times a week Patient Tobacco Use Status: Never used Tobacco e-Cigarette/Vaping Use: Never Used service: No Current occupational status: employed 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 Otherwise unremarkable exam. Office Procedures AMB Joint Injection/Aspiration Joint Injection/Aspiration Primary Site: left shoulder Prep: site was prepped using aseptic technique, ethochloride spray was applied and injection warnings given Injected: 80 mg of and with 8 mL of (2% plain lidocaine) Approach Used: posterolateral Procedure: The patient tolerated the procedure well, but had some pain with the injection and there was some relief with the local anesthesia Coding 49101 - Large joint Procedure code (CPT) selection complete Assessment & Plan Assessment & Plan (1) Right shoulder pain: Code(s): M25.511 - Pain in right shoulder Category: Medical Qualifiers: Chronicity: unspecified Qualified Code(s): M25.511 - Pain in right shoulder (2) Rotator cuff tear, left: Code(s): M75.102 - Unspecified rotator cuff tear or rupture of left shoulder, not specified as traumatic Category: Medical Qualifiers: Rotator cuff tear extent: unspecified tear extent Rotator cuff tear trauma status: nontraumatic Qualified Code(s): M75.102 - Unspecified rotator cuff tear or rupture of left shoulder, not specified as traumatic Plan Ms. Watson is a 59-year-old right-hand dominant female who presents to the office today for follow-up of bilateral shoulder pain. Left shoulder is reportedly more painful than the right. She did take Celebrex which did help with some of the pain making it slightly more manageable. She was seen with Dr. Ramos on 07/19/2024 where the discussion of a partial-thickness tear of the supraspinatus was discussed. At that appointment Dr. Ramos did not recommend surgical intervention at that time and requested her to continue with her home exercise program provided by physical therapy and follow up with him in 3 months. Additionally, she has also seen pain management and discussed the role of PRP injections and cortisone injections. She last received a cortisone injection in October that lasted her roughly 3 months. The patient was offered a cortisone injection in the left shoulder with 80 mg of DepoMedrol. The patient was explained the risks, benefits, and alternatives to receiving this injection. After receiving consent for the injection, the patient had the procedure done while in the office today. The patient tolerated the procedure well with no complications. I have recommended that the patient allow for three-month after the cortisone injection to consider additional treatment options. She does have a follow up next month with Dr. Ramos which I have pushed out for an additional 2 months after this most recent cortisone injection performed today. At that time she will resume discussion of surgical intervention versus PRP injection. Follow up will be in [address] Ramos, sooner if needed. X-rays of the bilateral shoulders which were obtained while in the office today and were reviewed by me, Amy Lott PA-C, and were unremarkable. Orders: Orders XR Shoulder Mata min 2V Today M25.511 - Pain in right shoulder, M25.512 - Pain in left shoulder Coding Level of Care Code Est Pt Level 3 (00426) Diagnoses Right shoulder pain, unspecified chronicity M25.511 Chronicity: unspecified Nontraumatic tear of left rotator cuff, unspecified tear extent M75.102 Rotator cuff tear extent: unspecified tear extent Rotator cuff tear trauma status: nontraumatic CPT Codes Coding - 30916 Large joint: 08560 - Large joint ([id number])
[2024-09-03 14:35] VITALS: BMI 27.4
--- OUTSIDE RECORDS SUMMARY | 2024-09-03 15:03 | XMS_ITS | Clinical Summary ---
Author Organization [facility] Address [address] [facility] [address] Phone Care Team Providers Care English Horn Player Name Role Phone Deya Mixon MD Primary Care Provider [phone] Allergies No known active allergies Medications estradioL (ESTRACE) 1 mg tablet Take 1 tablet (1 mg total) by mouth 1 (one) time each day. 4 Active levonorgestreL (MIRENA) 21 mcg/24hr (up to 8 yrs) 52 mg IUD 1 Device (1 each total) by intrauterine route 1 (one) time. Active valACYclovir (VALTREX) 500 mg tablet Take 1 tablet (500 mg total) by mouth 1 (one) time each day. 3 Active estradioL (ESTRACE) 2 mg tablet Take 1 tablet (2 mg total) by mouth 1 (one) time each day. for 360 days 90 each 1 5 07/19/19 26 Active Active Problems Problem Noted Date Diagnosed [...] Date Site/Laterality Comments BREAST REDUCTION - PROCEDURE: [place] BREAST REDUCTION OTHER SURGICAL HISTORY [...] Cancer Screening: HPV 04/01/2024 04/01/2019 Influenza Vaccine (#1) 2024 , 01/12/2020, 12/23/2018, Additional history exists Colorectal Cancer Screening: Colonoscopy 04/22/2026 04/22/2016 Cholesterol Screening (Lipid Panel) 05/07/2028 05/08/2023 DTaP,Tdap,and Td Vaccines (4 - Td or Tdap) 08/05/2031 08/04/2021, 08/25/2009, 03/30/1999 RSV Immunization Adult Patients (1 - 1-dose 75+ series) 2040 Zoster Vaccines Completed 04/13/2021, 02/02/2021 Hepatitis C [...] 5 Years) and At-Risk Patients (6 to 49 Years) Aged Out No longer eligible based [...] specimen / Unknown Historical Provider LAB BLOOD ORDERABLES Akua l Result * Hepatitis C Screening (08/04/2021) Pathologist [facility] Hepatitis C Screening Abstracted [facility] Provider HEALTH MAINTENANCE Final Result * Cervical Cancer Screening: HPV (04/01/2019) Pathologist [facility] Cervical Cancer Screening: HPV Negative, abstracted [facility] Provider HEALTH MAINTENANCE Final Result * Colonoscopy (04/22/2016) Pathologist [facility] Colonoscopy No interpretation , abstracted Anatomical Region Laterality Modality Other Historical Provider HEALTH MAINTENANCE Final Result from Last 3 Months or Most Recently Relevant to Health Maintenance [place] [place] [id number] [place]) Care Teams English Horn Player Relationship Specialty Start Date End Date Deya Mixon MD PCP - General 08/14/23
--- OUTSIDE RECORDS SUMMARY | 2024-09-03 15:03 | XMS_ITS | Continuity of Care Document ---
Author Organization [facility] Address [address] [facility] [address] [place] [address] Insurance Providers Payer Plan Claims Address Claims Phone Policy Number Group Number Relation Employer Guarantor Name Guarantor Guarantor Address Guarantor Phone Blue Cross Blue Shield [employer] D [address], [place] [address] tel:[phone] [id number] Self Calista Watson [address], [place] [address] [employer] [address], [place] [address] tel:[phone] [id number] Self Calista Watson [address] [place], [place] [id number] [phone] BC ANTHE M [address], [place] [address] tel:[phone] [id number] Self Calista Watson [address] [place], [place] [id number] (163) Problems Unknown Problems Results Test Result Date/Time Value / Unit Interp. Refere moe Range Comp. Metabolic Panel (14)[3 57064] Collected: 12/04/2023 05:01 PM Specimen Received: 12/04/2023 05:00 AM Source: [facility] Glucose [003564] 12/05/2023 03:51 AM 87 mg/dL 70-99 mg/dL BUN [948169] 12/05/2023 03:52 AM 17 mg/dL 6-2 4 mg/dL Creatinine [178936] 12/05/2023 03:52 AM 0.62 mg/dL 0.57-1.00 mg/dL eGFR [278438] 12/05/2023 03:52 AM 103 mL/min/1.73 >59 mL/min/1.73 BUN/Creatinine Ratio [950805] 12/05/2023 03:52 AM 27 H 9-23 Sodium [557044] 12/05/2023 03:49 AM 140 mmol/L 134-144 mmol/L Potassium [675719] 12/05/2023 03:51 AM 4.5 mmol/L 3.5-5.2 mmol/L Chloride [620192] 12/05/2023 03:48 AM 100 mmol/L 96-106 mmol/L Carbon Dioxide, Total [459843] 12/05/2023 03:51 AM 24 mmol/L 20-29 mmol/L Calcium [183273] 12/05/2023 03:51 AM 9.6 mg/dL 8.7-10.2 mg/dL Protein, Total [923212] 12/05/2023 03:52 AM 7.5 g/dL 6.0-8.5 g/dL Albumin [408025] 12/05/2023 03:52 AM 4.6 g/dL 3.8-4.9 g/dL Globulin, Total [609055] 12/05/2023 03:52 AM 2.9 g/dL 1.5-4.5 g/dL Bilirubin, Total [967285] 12/05/2023 03:52 AM 0.3 mg/dL 0.0-1.2 mg/d L Alkaline Phosphatase [418700] 12/05/2023 03:52 AM 62 IU/L 44-121 IU/L AST (SGOT) [649885] 12/05/2023 03:51 AM 18 IU/L 0-40 IU/L ALT (SGPT) [716657] 12/05/2023 03:52 AM 16 IU/L 0-32 IU/L Lipid Panel[643206] Collected: 12/04/2023 05:01 PM Specimen Received: 12/04/2023 05:00 AM Source: [facility] Cholesterol, Total [528228] 12/05/2023 04:00 AM 261 mg/dL H 100-199 mg/d L Triglycerides [022933] 12/05/2023 03:58 AM 128 mg/dL 0-149 mg/dL HDL Cholesterol [663611] 12/05/2023 03:58 AM 104 mg/dL >39 mg/dL VLDL Cholesterol Eren [151620] 12/05/2023 04:00 AM 22 mg/dL 5-40 mg/dL LDL Chol Calc ([facility]) [995340] 12/05/2023 04:00 AM 135 mg/dL H 0-99 mg/dL Hemoglobin A1c[160546] Collected: 12/04/2023 05:01 PM Specimen Received: 12/04/2023 05:00 AM Source: [facility] Hemoglobin A1c [050162] 12/05/2023 06:55 AM 5.5 % 4.8-5.6 % . Prediabetes: 5.7 - 6.4 [place] betes: >6.4 Glycemic control for adults with diabetes: 7.0 Comp. Metabolic Panel (14)[3 28080] Collected: 07/04/2023 04:01 PM Specimen Received: 07/04/2023 05:00 AM Source: [facility] Glucose [512538] 07/05/2023 04:03 AM 111 mg/dL H 70-99 mg/dL BUN [806657] 07/05/2023 04:03 AM 13 mg/dL 6-2 4 mg/dL Creatinine [779596] 07/05/2023 03:53 AM 0.76 mg/dL 0.57-1.00 mg/dL eGFR [275774] 07/05/2023 03:53 AM 91 mL/min/1.73 >59 mL/min/1.73 BUN/Creatinine Ratio [675096] 07/05/2023 04:03 AM 17 9-23 Sodium [930866] 07/05/2023 03:55 AM 143 mmol/L 134-144 mmol/L Potassium [162302] 07/05/2023 03:58 AM 4.6 mmol/L 3.5-5.2 mmol/L Chloride [466601] 07/05/2023 03:55 AM 102 mmol/L 96-106 mmol/L Carbon Dioxide, Total [141131] 07/05/2023 04:02 AM 25 mmol/L 20-29 mmol/L Calcium [300089] 07/05/2023 04:03 AM 9.5 mg/dL 8.7-10.2 mg/dL Protein, Total [899337] 07/05/2023 04:07 AM 6.7 g/dL 6.0-8.5 g/dL Albumin [553813] 07/05/2023 04:05 AM 4.4 g/dL 3.8-4.9 g/dL Globulin, Total [392994] 07/05/2023 04:07 AM 2.3 g/dL 1.5-4.5 g/dL A/G Ratio [146333] 07/05/2023 04:07 AM 1.9 1.2-2.2 Bilirubin, Total [192600] 07/05/2023 04:07 AM 0.4 mg/dL 0.0-1.2 mg/d L Alkaline Phosphatase [893554] 07/05/2023 04:10 AM 69 IU/L 44-121 IU/L AST (SGOT) [352946] 07/05/2023 04:11 AM 21 IU/L 0-40 IU/L ALT (SGPT) [143358] 07/05/2023 04:11 AM 16 IU/L 0-32 IU/L Lipid Panel[440290] Collected: 07/04/2023 04:01 PM Specimen Received: 07/04/2023 05:00 AM Source: [facility] Cholesterol, Total [580126] 07/05/2023 04:39 AM 259 mg/dL H 100-199 mg/d L Triglycerides [881662] 07/05/2023 04:36 AM 80 mg/dL 0-149 mg/dL HDL Cholesterol [334386] 07/05/2023 04:37 AM 90 mg/dL >39 mg/dL VLDL Cholesterol Eren [600939] 07/05/2023 04:39 AM 13 mg/dL 5-40 mg/dL LDL Chol Calc ([facility]) [800400] 07/05/2023 04:39 AM 156 mg/dL H 0-99 mg/dL Albumin/Creatinine Ratio,Uri ne[324013] Collected: 07/04/2023 04:01 PM Specimen Received: 07/04/2023 05:00 AM Source: [facility] Creatinine, Urine [[id number]] 07/05/2023 05:43 PM 189.1 mg/dL Not Estab. m g/dL Albumin, Urine [249117] 07/05/2023 05:51 PM 9.6 ug/mL Not Estab. ug/mL Alb/Creat Ratio [486291] 07/05/2023 05:51 PM 5 mg/g creat 0-29 mg/g creat Normal: 0 - 29 Moderately in creased: 30 - 300 Severely increased: >300 Hemoglobin A1c[050688] Collected: 07/04/2023 04:01 PM Specimen Received: 07/04/2023 05:00 AM Source: [facility] Hemoglobin A1c [060681] 07/05/2023 03:59 AM 5.4 % 4.8-5.6 % . Prediabetes: 5.7 - 6.4 [place] betes: >6.4 Glycemic control for adults with diabetes: 7.0 Comp. Metabolic Panel (14)[3 60216] Collected: 02/11/2023 04:56 PM Specimen Received: 02/11/2023 05:00 AM Source: [facility] Glucose [[id number]] 02/12/2023 12:31 PM 123 mg/dL H 70-99 mg/dL BUN [540259] 02/12/2023 12:31 PM 16 mg/dL 6-2 4 mg/dL Creatinine [251716] 02/12/2023 12:31 PM 0.76 mg/dL 0.57-1.00 mg/dL eGFR [641942] 02/12/2023 12:31 PM 91 mL/min/1.73 >59 mL/min/1.73 BUN/Creatinine Ratio [907121] 02/12/2023 12:31 PM 21 9-23 Sodium [569557] 02/12/2023 12:31 PM 139 mmol/L 134-144 mmol/L Potassium [927463] 02/12/2023 12:31 PM 4.5 mmol/L 3.5-5.2 mmol/L Chloride [586273] 02/12/2023 12:31 PM 99 mmol/L 96-106 mmol/L Carbon Dioxide, Total [278814] 02/12/2023 12:31 PM 23 mmol/L 20-29 mmol/L Calcium [384588] 02/12/2023 12:31 PM 10.2 mg/dL 8.7-10.2 mg/dL Protein, Total [151701] 02/12/2023 12:31 PM 7.2 g/dL 6.0-8.5 g/dL Albumin [987596] 02/12/2023 12:31 PM 4.6 g/dL 3.8-4.9 g/dL Globulin, Total [638674] 02/12/2023 12:31 PM 2.6 g/dL 1.5-4.5 g/dL A/G Ratio [545738] 02/12/2023 12:31 PM 1.8 1.2-2.2 Bilirubin, Total [428061] 02/12/2023 12:31 PM 0.5 mg/dL 0.0-1.2 mg/d L Alkaline Phosphatase [658058] 02/12/2023 12:31 PM 78 IU/L 44-121 IU/L AST (SGOT) [386215] 02/12/2023 12:31 PM 24 IU/L 0-40 IU/L ALT (SGPT) [825270] 02/12/2023 12:31 PM 18 IU/L 0-32 IU/L Lipid Panel[900106] Collected: 02/11/2023 04:56 PM Specimen Received: 02/11/2023 05:00 AM Source: [facility] Cholesterol, Total [470798] 02/12/2023 12:25 PM 330 mg/dL H 100-199 mg/d L Triglycerides [375715] 02/12/2023 12:25 PM 99 mg/dL 0-149 mg/dL HDL Cholesterol [657231] 02/12/2023 12:25 PM 71 mg/dL >39 mg/dL VLDL Cholesterol Eren [275457] 02/12/2023 12:25 PM 16 mg/dL 5-40 mg/dL LDL Chol Calc ([facility]) [319992] 02/12/2023 12:25 PM 243 mg/dL H 0-99 mg/dL Comment: [710752] 02/12/2023 12:25 PM 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 FH should be suspected whenfasting LDL cholesterol is above 189 mg/dL or non-HDL cholesterolis above 219 mg/dL. A family history of high cholesterol and heartdisease in 1st degree relatives should be collected. J Clin [id number];5:133-140 Hemoglobin A1c[238176] Collected: 02/11/2023 04:56 PM Specimen Received: 02/11/2023 05:00 AM [facility] [[id number]] 02/12/2023 12:00 PM 5.4 % 4.8-5.6 % . Prediabetes: 5.7 - 6.4 [place] betes: >6.4 Glycemic control for adults with diabetes: 7.0 Allergies, adverse reactions, alerts No known allergies and adverse reactions Medications No administered medications reported Vital Signs No vital signs reported Social History No smoking Hx information available
== END 2024-09-03 15:10 | disposition home or self-care (01) ==
LOC: HO.HOS 14:12
PROVIDERS: Visit Provider Physician Assistant
DX: M25.511 Pain in right shoulder (principal); M75.102 Unspecified rotator cuff tear or rupture of left shoulder, not specified as traumatic
CPT/HCPCS: 20610; 99213

== ENCOUNTER → 2024-09-03 14:14 | Outpatient (BNV) | payer BC, SELFPAY | PROVIDERS: Visit Provider Radiology Diagnostic Radiology | DX: M65.222 Calcific tendinitis, left upper arm (principal) | CPT/HCPCS: 73030 ==

== ENCOUNTER 2024-10-07 10:40 | Outpatient (AMB) | payer BC, SELFPAY ==
[2024-10-07 10:49] VITALS: BP 116/80; PULSE 61; RESP 18; O2SAT 98; BMI 28.3
--- NOTE | 2024-10-07 10:49 | A.OFFPC_ITS ---
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 Accompanied by: Self / Same As Patient Allergies No Known Allergies Allergy (Verified 10/07/24 10:58) Medication List - Last Reconciled 10/07/24 by BARBARA Robledo acyclovir 5% topical acyclovir 400 mg PO DAILY 90 days bergamot extract mg PO blood-glucose sensor (FreeStyle Pa 3 Sensor device) As directed celecoxib 200 mg PO BID estradiol 2 mg PO DAILY ezetimibe 10 mg PO DAILY levonorgestrel (Mirena) intrauterine vitamin B complex 1 tab PO DAILY Tobacco use date assessed: 10/07/24 Dental Screening Dental Screen Date: 10/07/24 Did you have a dental visit in the last 12 months?: Yes Did you have a dental problem in the last 6 months where you did not have access to dental care?: No Was dental information given to patient?: Patient has dentist HPI hld/liver enzymes HPI Details The patient is a 59-year-old female presenting for follow up appt HLD and elevated liver enzymes. Mac statin was discontinued due to muscle pain, but her cholesterol increased after. We are closely monitoring this. Although, the patient was not able to get her labs done before this appt. Today she is concern about symptoms of an upper respiratory tract infection and chronic pain management. The upper respiratory tract infection began approximately nine days ago, initially presenting with nasal congestion, sore throat, and headache. The patient reported that the symptoms started in the head, moved to the chest, and then returned to the head, with significant nasal congestion and postnasal drip. COVID-19 tests were conducted twice, both yielding negative results. The patient also reports chronic back and shoulder pain, for which she received a cortisone injection in the lower back on August 27. The injection has been effective, and the patient is currently managing well with the pain. She also had an injection in the left shoulder which has been effective as well. [facility] Medical History Disc degeneration, lumbar Colon polyp Chickenpox Arthritis Surgical History H/O colonoscopy [place] teeth removed History of biopsy H/O laser assisted in situ keratomileusis S/P bilateral breast reduction Family History Maternal Grandmother Cancer Maternal Grandfather Heart attack Paternal Grandmother Stroke Father Diabetes type 2 Heart disease Mother Heart disease Brother Cancer of kidney Social History Household Members Other:: Daughter Housing: House Alcohol intake: current Alcohol intake frequency: a few times a week Patient Tobacco Use Status: Never used Tobacco e-Cigarette/Vaping Use: Never Used service: No Current occupational status: employed 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 1. Little interest or pleasure in doing things: not at all 2. Feeling down, depressed, or hopeless: not at all 3. Trouble falling or staying asleep, or sleeping too much: not at all 4. Feeling tired or having little energy: not at all 5. Poor appetite or overeating: not at all 6. Feeling bad about yourself - or that you are a failure or have let yourself or your family down: not at all 7. Trouble concentrating on things, such as reading the newspaper or watching television: not at all 8. Moving or speaking so slowly that other people could have noticed. Or the opposite - being so fidgety or restless that you have been moving around a lot more than usual: not at all 9. Thoughts that you would be better off or of hurting yourself in some way: not at all Total score: 0 Depression Screening Interpretation: Negative Depression Screening Done: Yes Source: Developed by Drs. William Ortiz, Aliyah Bartlett, Hussein Ann and colleagues, with an educational susie from [employer]. Thrive Questionnaire Date Thrive assessed: 10/07/24 I am a: Patient What is your living situation today?: I have a steady place to live Within the past 12 months, did the food you bought not last and you didn't have the money to get more?: Never true Within the past 12 months, did you worry whether your food would run out before you got money to buy more?: I choose not to answer this question Do you have trouble paying for medicines?: I choose not to answer this question Do you have trouble getting transportation to medical appointments?: I choose not to answer this question Do you have trouble paying your heating and electricity bill?: I choose not to answer this question Do you have trouble taking care of your child, family member or friend?: I choose not to answer this question Do you have trouble with day-to-day activities such as bathing, preparing meals, shopping, managing finances, etc.?: I choose not to answer this question Are you currently unemployed and looking for a job?: I choose not to answer this question Are you interested in more education?: I choose not to answer this question Currently or been in a relationship where the following occur: I choose not to answer THRIVE Score: 0 AUDIT C Alcohol Use Questionnaire (AUDIT-C) 1. How often do you have a drink containing alcohol?: 2-3 times a week 2. How many drinks containing alcohol do you have on a typical day when you are drinking?: 1 or 2 3. How often do you have six or more drinks on one occasion?: Never Total Score: 3 LOC-7 AMB Questionnaire LOC-7 Date LOC - 7 assessed: 10/07/24 Feeling nervous, anxious, or on edge: 0 = Not at all Not being able to stop or control worryin = Not at all Worrying too much about different things: 0 = Not at all Trouble relaxin = Not at all Being so restless that it is hard to sit still: 0 = Not at all Becoming easily annoyed or irritable: 0 = Not at all Feeling afraid as if something awful might happen: 0 = Not at all Total LOC-7 score (0-4 normal; 5-9 mild; 10-14 moderate; 15-21 severe): 0 Source: Developed by Drs. William Ortiz, Aliyah Bartlett, Hussein Ann and colleagues, with an educational susie from [employer]. Review of Systems Const Denies body aches, Denies chills, Denies fever(s), Reports headache(s) and Denies poor appetite Eyes Reports no additional complaints ENT Denies dysphagia, Denies dizziness, Reports headache(s) and Denies odynophagia Card Denies chest pain, Denies syncope, Denies edema, Denies irregular heart rhythm, Denies lightheadedness and Denies dyspnea Resp Denies cough and Denies dyspnea GI Denies abdominal pain, Denies constipation, Denies dysphagia, Denies diarrhea, Denies nausea, Denies odynophagia and Denies vomiting Reports no additional complaints Musc Reports back pain and Reports arthralgias (Bilateral shoulder, left worse) Skin/Breast Reports system reviewed and no additional complaints, except as documented Neuro Denies Abnormal speech present, Denies dizziness, Denies syncope and Reports headache(s) Psych Reports no additional complaints Physical exam (Primary Care) Vital Signs: Last Vital Signs Pulse 61 10/07/24 10:49 Resp 18 10/07/24 10:49 BP 116/80 10/07/24 10:49 Pulse Ox 98 10/07/24 10:49 Oxygen Delivery Method Room Air 10/07/24 10:49 BMI result Body Mass Index 28.3 Tobacco/Smoking Status: Tobacco use Status Tobacco use date assessed 10/07/24 10/07/24 10:56 Patient Tobacco Use Status Never used Tobacco 10/07/24 10:56 e-Cigarette/Vaping Use Never Used 10/07/24 10:56 PHQ-9: PHQ-9 Score PHQ-9: Total score 0 10/07/24 11:10 Depression Screening Interpretation: Negative Thrive Assessment: Date of Thrive Assessment Date Thrive assessed 10/07/24 10/07/24 10:56 Currently or been in a relationship where the following occur: I choose not to answer Const General: healthy appearing, no acute distress, alert and awake Nutritional Appearance: well nourished Orientation/consciousness: oriented to person, oriented to place and oriented to time HENMT Ears: TM's normal bilaterally General nose exam: Abnormal mucous membranes and turbinates present boggy bilateral and erythematous bilateral Eyes Conjunctivae: conjunctivae normal Sclerae: sclerae normal Pupils: Equal, round and reactive pupils present Neck Neck: Yes no lymphadenopathy and Yes no JVD Thyroid: Thyroid normal Carotids: no bruits Resp Effort & Inspection: normal respiratory effort and not tachypneic Auscultation: no crackles, no rales, no rhonchi and no wheezes Cardio Rate: regular rate Rhythm: regular rhythm Heart sounds: S1 normal heart sound present, S2 normal heart sound present, no murmurs and normal S1 and S2 GI Palpation (GI): Soft to palpation, nontender, no hepatomegaly and no splenomegaly Auscultation: normal bowel sounds General: Yes no CVA tenderness Back/Spine/Pelvis Back: no CVA tenderness Thoracic/Lumbar Spine: lumbar spinal tenderness Skin General skin exam: no rashes or lesions noted and dry skin Neuro General: oriented to person, oriented to place and oriented to time Cranial nerves: Yes Equal, round and reactive pupils present Speech: No Abnormal speech present Gait exam (Neuro): Normal gait present Motor exam (neuro): no tremor noted Extrem Right upper extremity: full ROM Left upper extremity: full ROM and shoulder/upper arm Details: no tenderness and no swelling Right lower extremity: full ROM; no edema Left lower extremity: full ROM; no edema Psych Mental Status: mental status grossly normal Speech and movement: Normal speech and movement present Affect: normal affect Attitude: cooperative Thought process: Normal thought process present Coding Level of Care Code Est Pt Level 3 (73761) Diagnoses Pure hypercholesterolemia E78.00 Hyperlipidemia type: pure hypercholesterolemia Elevated liver enzymes R74.8 Nontraumatic tear of left rotator cuff, unspecified tear extent M75.102 Rotator cuff tear extent: unspecified tear extent Rotator cuff tear trauma status: nontraumatic Chronic bilateral low back pain, unspecified whether sciatica present M54.50; G89.29 Chronicity: chronic Back pain laterality: bilateral Sciatica presence: unspecified whether sciatica present Rhinosinusitis J32.9 Time Spent (min) 34 Assessment & Plan Assessment & Plan (1) HLD (hyperlipidemia): Code(s): E78.5 - Hyperlipidemia, unspecified Category: Medical Qualifiers: Hyperlipidemia type: pure hypercholesterolemia Qualified Code(s): E78.00 - Pure hypercholesterolemia, unspecified Plan: Triglycerides 114, total cholesterol 258, LDL 159, HDL 77 06/17/24 Patient atorvastatin was discontinued roughly about six-month ago due to muscle aches. Her cholesterol increased which is the above levels. She was started on ezetimibe. She was supposed to repeat labs before this appointment to re- evaluate. Patient will complete labs as soon as possible. Encouraged low- cholesterol diet and activity as tolerated. Continue ezetimibe 10 mg daily (2) Elevated liver enzymes: Code(s): R74.8 - Abnormal levels of other serum enzymes Category: Medical Plan: Her liver enzymes continued to be in normal since stopping atorvastatin. AST 19 and ALT 11 We will continue to monitor (3) Rotator cuff tear, left: Code(s): M75.102 - Unspecified rotator cuff tear or rupture of left shoulder, not specified as traumatic Category: Medical Qualifiers: Rotator cuff tear extent: unspecified tear extent Rotator cuff tear trauma status: nontraumatic Qualified Code(s): M75.102 - Unspecified rotator cuff tear or rupture of left shoulder, not specified as traumatic Plan: Reports having steroid injection recently which has been working Follow up with Orthopedics as scheduled (4) Lower back pain: Code(s): M54.50 - Low back pain, unspecified Category: Medical Qualifiers: Chronicity: chronic Back pain laterality: bilateral Sciatica presence: unspecified whether sciatica present Qualified Code(s): M54.50 - Low back pain, unspecified; G89.29 - Other chronic pain Plan: Similarly the patient received an injection in her back recently in August 27 Follow up with Orthopedics as scheduled (5) Rhinosinusitis: Code(s): J32.9 - Chronic sinusitis, unspecified Category: Medical Plan: Complain of cold symptoms. On exam bilateral turbinates extremely red and boggy Augmentin 875-125 mg BID x7 days Orders: Orders UA CC w/rflx Micro + Cult 3 Months E78.00 - Pure hypercholesterolemia, unspecified, R74.8 - Abnormal levels of other serum enzymes TSH reflex Free T4 3 Months E78.00 - Pure hypercholesterolemia, unspecified, R74.8 - Abnormal levels of other serum enzymes Comprehensive [place]. Panel Fast 3 Months E78.00 - Pure hypercholesterolemia, unspecified, R74.8 - Abnormal levels of other serum enzymes Lipid Panel 3 Months E78.00 - Pure hypercholesterolemia, unspecified, R74.8 - Abnormal levels of other serum enzymes Vitamin D 25-OH Total 3 Months E78.00 - Pure hypercholesterolemia, unspecified, R74.8 - Abnormal levels of other serum enzymes Medications: New amoxicillin-pot clavulanate 875-125 mg 1 tab PO BID 14 tabs 0RF 7 days Refilled acyclovir 400 mg PO DAILY 90 tabs 4RF 90 days
--- OUTSIDE RECORDS SUMMARY | 2024-10-07 11:22 | XMS_ITS | Continuity of Care Document ---
Author Organization [facility] Address [address] [place] [address] Insurance Providers Payer Plan Claims Address Claims Phone Policy Number Group Number Relation Employer Guarantor Name Guarantor Guarantor Address Guarantor Phone Blue Cross Blue Shield [employer] D [address], [place] [address] tel:[phone] [id number] [phone] Self Calista Watson [address], [place] [address] [place] [employer] M [address], [place] [address] tel:[phone] [id number] Self Calista Watson [address] [place], [place] [id number] [phone] [employer] M [address], [place] [address] tel:[phone] [id number] Self Calista Watson [address] [place], [place] [id number] (453) Problems Unknown Problems Results Test Result Date/Time Value / Unit Interp. Refere nce Range Comp. Metabolic Panel (14)[3 [id number]] Collected: 12/04/2023 05:01 PM Specimen Received: 12/04/2023 05:00 AM Source: [facility] Glucose [[id number]] 12/05/2023 03:51 AM 87 mg/dL 70-99 mg/dL BUN [[id number]] 12/05/2023 03:52 AM 17 mg/dL 6-2 4 mg/dL Creatinine [[id number]] 12/05/2023 03:52 AM 0.62 mg/dL 0.57-1.00 mg/dL eGFR [[id number]] 12/05/2023 03:52 AM 103 mL/min/1.73 >59 mL/min/1.73 BUN/Creatinine Ratio [[id number]] 12/05/2023 03:52 AM 27 H 9-23 Sodium [051676] 12/05/2023 03:49 AM 140 mmol/L 134-144 mmol/L Potassium [[id number]] 12/05/2023 03:51 AM 4.5 mmol/L 3.5-5.2 mmol/L Chloride [532754] 12/05/2023 03:48 AM 100 mmol/L 96-106 mmol/L Carbon Dioxide, Total [865976] 12/05/2023 03:51 AM 24 mmol/L 20-29 mmol/L Calcium [[id number]] 12/05/2023 03:51 AM 9.6 mg/dL 8.7-10.2 mg/dL Protein, Total [[id number]] 12/05/2023 03:52 AM 7.5 g/dL 6.0-8.5 g/dL Albumin [205253] 12/05/2023 03:52 AM 4.6 g/dL 3.8-4.9 g/dL Globulin, Total [[id number]] 12/05/2023 03:52 AM 2.9 g/dL 1.5-4.5 g/dL Bilirubin, Total [594056] 12/05/2023 03:52 AM 0.3 mg/dL 0.0-1.2 mg/d L Alkaline Phosphatase [302938] 12/05/2023 03:52 AM 62 IU/L 44-121 IU/L AST (SGOT) [[id number]] 12/05/2023 03:51 AM 18 IU/L 0-40 IU/L ALT (SGPT) [232329] 12/05/2023 03:52 AM 16 IU/L 0-32 IU/L Lipid Panel[[id number]] Collected: 12/04/2023 05:01 PM Specimen Received: 12/04/2023 05:00 AM Source: [facility] Cholesterol, Total [[id number]] 12/05/2023 04:00 AM 261 mg/dL H 100-199 mg/d L Triglycerides [[id number]] 12/05/2023 03:58 AM 128 mg/dL 0-149 mg/dL HDL Cholesterol [073030] 12/05/2023 03:58 AM 104 mg/dL >39 mg/dL VLDL Cholesterol Eren [726783] 12/05/2023 04:00 AM 22 mg/dL 5-40 mg/dL LDL Chol Calc ([facility]) [[id number]] 12/05/2023 04:00 AM 135 mg/dL H 0-99 mg/dL Hemoglobin A1c[[id number]] Collected: 12/04/2023 05:01 PM Specimen Received: 12/04/2023 05:00 AM Source: [facility] Hemoglobin A1c [[id number]] 12/05/2023 06:55 AM 5.5 % 4.8-5.6 % . Prediabetes: 5.7 - 6.4 [place] betes: >6.4 Glycemic control for adults with diabetes: 7.0 Comp. Metabolic Panel (14)[3 63770] Collected: 07/04/2023 04:01 PM Specimen Received: 07/04/2023 05:00 AM Source: [facility] Glucose [[id number]] 07/05/2023 04:03 AM 111 mg/dL H 70-99 mg/dL BUN [[id number]] 07/05/2023 04:03 AM 13 mg/dL 6-2 4 mg/dL Creatinine [991313] 07/05/2023 03:53 AM 0.76 mg/dL 0.57-1.00 mg/dL eGFR [027861] 07/05/2023 03:53 AM 91 mL/min/1.73 >59 mL/min/1.73 BUN/Creatinine Ratio [431484] 07/05/2023 04:03 AM 17 9-23 Sodium [371634] 07/05/2023 03:55 AM 143 mmol/L 134-144 mmol/L Potassium [277998] 07/05/2023 03:58 AM 4.6 mmol/L 3.5-5.2 mmol/L Chloride [035412] 07/05/2023 03:55 AM 102 mmol/L 96-106 mmol/L Carbon Dioxide, Total [199736] 07/05/2023 04:02 AM 25 mmol/L 20-29 mmol/L Calcium [696828] 07/05/2023 04:03 AM 9.5 mg/dL 8.7-10.2 mg/dL Protein, Total [409096] 07/05/2023 04:07 AM 6.7 g/dL 6.0-8.5 g/dL Albumin [[id number]] 07/05/2023 04:05 AM 4.4 g/dL 3.8-4.9 g/dL Globulin, Total [499876] 07/05/2023 04:07 AM 2.3 g/dL 1.5-4.5 g/dL A/G Ratio [413625] 07/05/2023 04:07 AM 1.9 1.2-2.2 Bilirubin, Total [[id number]] 07/05/2023 04:07 AM 0.4 mg/dL 0.0-1.2 mg/d L Alkaline Phosphatase [931874] 07/05/2023 04:10 AM 69 IU/L 44-121 IU/L AST (SGOT) [702578] 07/05/2023 04:11 AM 21 IU/L 0-40 IU/L ALT (SGPT) [723863] 07/05/2023 04:11 AM 16 IU/L 0-32 IU/L Lipid Panel[[id number]] Collected: 07/04/2023 04:01 PM Specimen Received: 07/04/2023 05:00 AM Source: [facility] Cholesterol, Total [[id number]] 07/05/2023 04:39 AM 259 mg/dL H 100-199 mg/d L Triglycerides [[id number]] 07/05/2023 04:36 AM 80 mg/dL 0-149 mg/dL HDL Cholesterol [204556] 07/05/2023 04:37 AM 90 mg/dL >39 mg/dL VLDL Cholesterol Eren [[id number]] 07/05/2023 04:39 AM 13 mg/dL 5-40 mg/dL LDL Chol Calc ([facility]) [315625] 07/05/2023 04:39 AM 156 mg/dL H 0-99 mg/dL Albumin/Creatinine Ratio,Uri ne[055802] Collected: 07/04/2023 04:01 PM Specimen Received: 07/04/2023 05:00 AM Source: [facility] Creatinine, Urine [[id number]] 07/05/2023 05:43 PM 189.1 mg/dL Not Estab. m g/dL Albumin, Urine [[id number]] 07/05/2023 05:51 PM 9.6 ug/mL Not Estab. ug/mL Alb/Creat Ratio [[id number]] 07/05/2023 05:51 PM 5 mg/g creat 0-29 mg/g creat Normal: 0 - 29 Moderately in creased: 30 - 300 Severely increased: >300 Hemoglobin A1c[[id number]] Collected: 07/04/2023 04:01 PM Specimen Received: 07/04/2023 05:00 AM Source: [facility] Hemoglobin A1c [[id number]] 07/05/2023 03:59 AM 5.4 % 4.8-5.6 % . Prediabetes: 5.7 - 6.4 [place] betes: >6.4 Glycemic control for adults with diabetes: 7.0 Comp. Metabolic Panel (14)[3 [id number]] Collected: 02/11/2023 04:56 PM Specimen Received: 02/11/2023 05:00 AM Source: [facility] Glucose [[id number]] 02/12/2023 12:31 PM 123 mg/dL H 70-99 mg/dL BUN [[id number]] 02/12/2023 12:31 PM 16 mg/dL 6-2 4 mg/dL Creatinine [[id number]] 02/12/2023 12:31 PM 0.76 mg/dL 0.57-1.00 mg/dL eGFR [[id number]] 02/12/2023 12:31 PM 91 mL/min/1.73 >59 mL/min/1.73 BUN/Creatinine Ratio [[id number]] 02/12/2023 12:31 PM 21 9-23 Sodium [148573] 02/12/2023 12:31 PM 139 mmol/L 134-144 mmol/L Potassium [[id number]] 02/12/2023 12:31 PM 4.5 mmol/L 3.5-5.2 mmol/L Chloride [688002] 02/12/2023 12:31 PM 99 mmol/L 96-106 mmol/L Carbon Dioxide, Total [164249] 02/12/2023 12:31 PM 23 mmol/L 20-29 mmol/L Calcium [654512] 02/12/2023 12:31 PM 10.2 mg/dL 8.7-10.2 mg/dL Protein, Total [[id number]] 02/12/2023 12:31 PM 7.2 g/dL 6.0-8.5 g/dL Albumin [[id number]] 02/12/2023 12:31 PM 4.6 g/dL 3.8-4.9 g/dL Globulin, Total [851589] 02/12/2023 12:31 PM 2.6 g/dL 1.5-4.5 g/dL A/G Ratio [180342] 02/12/2023 12:31 PM 1.8 1.2-2.2 Bilirubin, Total [407048] 02/12/2023 12:31 PM 0.5 mg/dL 0.0-1.2 mg/d L Alkaline Phosphatase [090991] 02/12/2023 12:31 PM 78 IU/L 44-121 IU/L AST (SGOT) [[id number]] 02/12/2023 12:31 PM 24 IU/L 0-40 IU/L ALT (SGPT) [291266] 02/12/2023 12:31 PM 18 IU/L 0-32 IU/L Lipid Panel[[id number]] Collected: 02/11/2023 04:56 PM Specimen Received: 02/11/2023 05:00 AM Source: [facility] Cholesterol, Total [[id number]] 02/12/2023 12:25 PM 330 mg/dL H 100-199 mg/d L Triglycerides [[id number]] 02/12/2023 12:25 PM 99 mg/dL 0-149 mg/dL HDL Cholesterol [[id number]] 02/12/2023 12:25 PM 71 mg/dL >39 mg/dL VLDL Cholesterol Eren [[id number]] 02/12/2023 12:25 PM 16 mg/dL 5-40 mg/dL LDL Chol Calc ([facility]) [[id number]] 02/12/2023 12:25 PM 243 mg/dL H 0-99 mg/dL Comment: [[id number]] 02/12/2023 12:25 PM 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 FH should be suspected whenfasting LDL cholesterol is above 189 mg/dL or non-HDL cholesterolis above 219 mg/dL. A family history of high cholesterol and heartdisease in 1st degree relatives should be collected. J Clin [id number];5:133-140 Hemoglobin A1c[[id number]] Collected: 02/11/2023 04:56 PM Specimen Received: 02/11/2023 05:00 AM [facility] [[id number]] 02/12/2023 12:00 PM 5.4 % 4.8-5.6 % . Prediabetes: 5.7 - 6.4 [place] betes: >6.4 Glycemic control for adults with diabetes: 7.0 Allergies, adverse reactions, alerts No known allergies and adverse reactions Medications No administered medications reported Vital Signs No vital signs reported Social History No smoking Hx information available
--- OUTSIDE RECORDS SUMMARY | 2024-10-07 11:22 | XMS_ITS ---
[facility] Care Team Organization Name Specialty Phone Email Start Date End Da te [facility] Viridiana Iyer DO Primary Care 01/04/202209/27
== END 2024-10-07 11:17 | disposition home or self-care (01) ==
LOC: HO.HMCH 10:41
DX: E78.00 Pure hypercholesterolemia, unspecified (principal); R74.8 Abnormal levels of other serum enzymes; M75.102 Unspecified rotator cuff tear or rupture of left shoulder, not specified as traumatic; M54.50 Low back pain, unspecified; G89.29 Other chronic pain; J32.9 Chronic sinusitis, unspecified

== ENCOUNTER 2024-10-08 12:37 | Outpatient (AMB) | payer BC, SELFPAY ==
--- NOTE | 2024-10-08 12:39 | MHC.OFFVIS ---
Vital Signs 10/08/24 12:40 Height 5 ft 8 in Weight 187 lb 6.287 oz BMI 28.5 BP 130/92 H Blood Pressure Location Rt brachial Pulse 68 Pulse Source Pulse Oximeter Pulse Oximetry (%) 98 Oxygen Delivery Method Room Air Intake Visit Reasons: 3 Months Intake Note: Patient presents for follow up on myalgia. Accompanied by: Self / Same As Patient Allergies No Known Allergies Allergy (Verified 10/08/24 12:44) HPI HPI 3 Months: Details: Celebrex helped. Misses Evening dose of Celebrex 50% of the time. She received left shoulder and L spine back cortisone injection. She has strength. Soreness in arms resolved with cortisone injection. Denies weakness. Continues to do PT exercises at home. [facility] Medical History Disc degeneration, lumbar Colon polyp Chickenpox Arthritis Surgical History H/O colonoscopy [place] teeth removed History of biopsy H/O laser assisted in situ keratomileusis S/P bilateral breast reduction Family History Maternal Grandmother Cancer Maternal Grandfather Heart attack Paternal Grandmother Stroke Father Diabetes type 2 Heart disease Mother Heart disease Brother Cancer of kidney Social History Household Members Other:: Daughter Housing: House Alcohol intake: current Alcohol intake frequency: a few times a week Patient Tobacco Use Status: Never used Tobacco e-Cigarette/Vaping Use: Never Used service: No Current occupational status: employed 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 No crackles Cardiovascular: Regular rate and rhythm, no murmurs MSK: No tender shoulders or biceps muscle. She has full range of upper extremities and lower extremities. Bilateral hip flexor weakness 4-5/5 power. Rest of upper extremity and lower extremity is 5/5. No synovitis. Assessment & Plan Assessment & Plan (1) Myalgia: Comment: Resolved with Celebrex and cortisone injection of left shoulder and L-spine. Her strength exam in her lower extremities has improved to almost normal. She may have experienced rare effect of systemic benefit of cortisone injection. Rheumatology history: Chronic myalgias for 4 years, which has worsened on atorvastatin. She has associated paresthesia of bilateral hands and feet. On last exam she has lower extremity proximal muscle weakness affecting hip muscles. 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 Her muscle enzymes were normal but she had mild elevation in her CRP. Off of statin transaminitis has resolved. She continues to have myalgias affecting her bilateral biceps muscles with bilateral hip flexor weakness. EMG bilateral upper extremities was inconclusive. There were abnormalities noted related to bilateral biceps muscle but myopathy was not completely ruled out. She saw orthopedic surgeon for management of chronic rotator cuff muscles who gave her a left shoulder cortisone injection. She started Celebrex 06/2024 due to mild CRP elevation, which could be from chronic rotator cuff tendinopathy. She received L-spine cortisone injection, which improved back pain and weakness in lower extremities. I recommend alternative to statins to treat her hyperlipidemia and hypercholesterolemia such as ezetimibe, fibrates, bile acid sequestrants, and PCSK9 inhibitors to avoid statin induced myalgias and transaminitis as a side effect, which is possible with all statins. She is on ezetimibe. Code(s): M79.10 - Myalgia, unspecified site Category: Medical Plan: She will discontinue Celebrex Continue home exercise program Monitor clinically. If weakness in lower extremity reoccurs, I recommend repeating inflammatory markers, muscle enzymes and EMG for further evaluation Return to clinic PRN (2) Muscle weakness: Code(s): M62.81 - Muscle weakness (generalized) Category: Medical Plan: See above (3) Rotator cuff tear, left: Code(s): M75.102 - Unspecified rotator cuff tear or rupture of left shoulder, not specified as traumatic Category: Medical Qualifiers: Rotator cuff tear extent: unspecified tear extent Rotator cuff tear trauma status: nontraumatic Qualified Code(s): M75.102 - Unspecified rotator cuff tear or rupture of left shoulder, not specified as traumatic Plan: See above (4) Bilateral shoulder pain: Comment: Resolved on Celebrex and after left cortisone injection given by orthopedic surgeon. She may have experienced systemic side effect with benefit of cortisone occurring systemically (rare). Code(s): M25.511 - Pain in right shoulder; M25.512 - Pain in left shoulder Category: Medical Qualifiers: Chronicity: unspecified Qualified Code(s): M25.511 - Pain in right shoulder; M25.512 - Pain in left shoulder Plan: She will discontinue Celebrex Return to clinic PRN Coding Level of Care Code Est Pt Level 3 (00214) Complex EM visit Add On G2211 Diagnoses Myalgia M79.10 Muscle weakness M62.81 Nontraumatic tear of left rotator cuff, unspecified tear extent M75.102 Rotator cuff tear extent: unspecified tear extent Rotator cuff tear trauma status: nontraumatic Bilateral shoulder pain, unspecified chronicity M25.511; M25.512 Chronicity: unspecified
[2024-10-08 12:40] VITALS: BP 130/92; PULSE 68; O2SAT 98; BMI 28.5
== END 2024-10-08 13:08 | disposition home or self-care (01) ==
LOC: HO.RHES 12:37
PROVIDERS: Visit Provider Internal Medicine Rheumatology
DX: M79.10 Myalgia, unspecified site (principal); M75.102 Unspecified rotator cuff tear or rupture of left shoulder, not specified as traumatic; M25.511 Pain in right shoulder; M25.512 Pain in left shoulder
CPT/HCPCS: 99213

== ENCOUNTER 2024-10-21 10:23 | Outpatient (REF) | payer BC, SELFPAY ==
--- OUTSIDE RECORDS SUMMARY | 2024-10-21 11:33 | XMS_ITS | Clinical Summary ---
Author Organization [facility] [address] [facility] Address [address] [facility] [address] [facility] [place] [address] Phone Care Team Providers Care Office Manager Name Role Phone Deya Mixon MD Primary Care Provider [phone] Allergies No known active allergies Medications estradioL [...] Date Site/Laterality Comments BREAST REDUCTION - PROCEDURE: MN BREAST REDUCTION OTHER SURGICAL HISTORY 05/29/06 PROCEDURE: MN CRYOTHERAPY CO2 SLUSH LIQUID N2 ACNE; COMMENT: [...] Years (1 of 1 - PCV) 08/31/2015 HIV Screening 02/05/2022 Social Influencers of Health Screening 02/05/2022 COVID-19 Vaccine ( season) 2023 02/02/2021, 07/08/2020, 06/17/2020 Depression Screening 02/28/2024 Cervical Cancer Screening: HPV 04/01/2024 04/01/2019 Influenza [...] l Result * Hepatitis C Screening (08/04/2021) [facility] Hepatitis C Screening Abstracted Historical Provider HEALTH MAINTENANCE Final Result * Cervical Cancer Screening: HPV (04/01/2019) [facility] Cervical Cancer Screening: HPV Negative, abstracted [facility] Provider HEALTH MAINTENANCE Final Result * Colonoscopy (04/22/2016) [facility] Colonoscopy No interpretation , abstracted Anatomical Region Laterality Modality Other Historical Provider HEALTH MAINTENANCE Final Result from Last 3 Months or Most Recently Relevant to Health [place] [id number] [employer] [place] ([place]) Care Teams Office Manager Relationship Specialty Start Date End Date Deya Mixon MD PCP - General 08/14/23
--- OUTSIDE RECORDS SUMMARY | 2024-10-21 11:33 | XMS_ITS | Continuity of Care Document ---
Author Organization [facility] Address [address] [facility] [address] [place] [address] Insurance Providers Payer Plan Claims Address Claims Phone Policy Number Group Number Relation Employer Guarantor Name Guarantor Guarantor Address Guarantor Phone Blue Cross Blue Shield [employer] SH[employer] D [address], [place] [address] tel:[phone] [id number] Self Calista Watson [address], [place] [address] Vevay ANTHE M [address], [place] [address] tel:[phone] [id number] Self Calista Watson [address] [place], [place] [id number] [phone] ANTHE M [address], [place] [address] tel:[phone] [id number] Self Calista Watson [address] [place], [place] [phone] ([phone]) Problems Unknown Problems Results Test Result Date/Time Value / Unit Interp. Refere nce Range Comp. Metabolic Panel (14)[3 [id number]] Collected: 12/04/2023 05:01 PM Specimen Received: 12/04/2023 05:00 AM Source: [facility] Glucose [[id number]] 12/05/2023 03:51 AM 87 mg/dL 70-99 mg/dL BUN [[id number]] 12/05/2023 03:52 AM 17 mg/dL 6-2 4 mg/dL Creatinine [702313] 12/05/2023 03:52 AM 0.62 mg/dL 0.57-1.00 mg/dL eGFR [[id number]] 12/05/2023 03:52 AM 103 mL/min/1.73 >59 mL/min/1.73 BUN/Creatinine Ratio [[id number]] 12/05/2023 03:52 AM 27 H 9-23 Sodium [007840] 12/05/2023 03:49 AM 140 mmol/L 134-144 mmol/L Potassium [786707] 12/05/2023 03:51 AM 4.5 mmol/L 3.5-5.2 mmol/L Chloride [971189] 12/05/2023 03:48 AM 100 mmol/L 96-106 mmol/L Carbon Dioxide, Total [476275] 12/05/2023 03:51 AM 24 mmol/L 20-29 mmol/L Calcium [758918] 12/05/2023 03:51 AM 9.6 mg/dL 8.7-10.2 mg/dL Protein, Total [992308] 12/05/2023 03:52 AM 7.5 g/dL 6.0-8.5 g/dL Albumin [864117] 12/05/2023 03:52 AM 4.6 g/dL 3.8-4.9 g/dL Globulin, Total [698152] 12/05/2023 03:52 AM 2.9 g/dL 1.5-4.5 g/dL Bilirubin, Total [760502] 12/05/2023 03:52 AM 0.3 mg/dL 0.0-1.2 mg/d L Alkaline Phosphatase [451119] 12/05/2023 03:52 AM 62 IU/L 44-121 IU/L AST (SGOT) [902733] 12/05/2023 03:51 AM 18 IU/L 0-40 IU/L ALT (SGPT) [672125] 12/05/2023 03:52 AM 16 IU/L 0-32 IU/L Lipid Panel[[id number]] Collected: 12/04/2023 05:01 PM Specimen Received: 12/04/2023 05:00 AM Source: [facility] Cholesterol, Total [[id number]] 12/05/2023 04:00 AM 261 mg/dL H 100-199 mg/d L Triglycerides [694430] 12/05/2023 03:58 AM 128 mg/dL 0-149 mg/dL HDL Cholesterol [720878] 12/05/2023 03:58 AM 104 mg/dL >39 mg/dL VLDL Cholesterol Eren [980538] 12/05/2023 04:00 AM 22 mg/dL 5-40 mg/dL LDL Chol Calc ([facility]) [367290] 12/05/2023 04:00 AM 135 mg/dL H 0-99 mg/dL Hemoglobin A1c[253114] Collected: 12/04/2023 05:01 PM Specimen Received: 12/04/2023 05:00 AM Source: [facility] Hemoglobin A1c [[id number]] 12/05/2023 06:55 AM 5.5 % 4.8-5.6 % . Prediabetes: 5.7 - 6.4 [place] betes: >6.4 Glycemic control for adults with diabetes: 7.0 Comp. Metabolic Panel (14)[3 [id number]] Collected: 07/04/2023 04:01 PM Specimen Received: 07/04/2023 05:00 AM Source: [facility] Glucose [[id number]] 07/05/2023 04:03 AM 111 mg/dL H 70-99 mg/dL BUN [[id number]] 07/05/2023 04:03 AM 13 mg/dL 6-2 4 mg/dL Creatinine [138104] 07/05/2023 03:53 AM 0.76 mg/dL 0.57-1.00 mg/dL eGFR [220777] 07/05/2023 03:53 AM 91 mL/min/1.73 >59 mL/min/1.73 BUN/Creatinine Ratio [739556] 07/05/2023 04:03 AM 17 9-23 Sodium [291402] 07/05/2023 03:55 AM 143 mmol/L 134-144 mmol/L Potassium [863173] 07/05/2023 03:58 AM 4.6 mmol/L 3.5-5.2 mmol/L Chloride [630489] 07/05/2023 03:55 AM 102 mmol/L 96-106 mmol/L Carbon Dioxide, Total [889624] 07/05/2023 04:02 AM 25 mmol/L 20-29 mmol/L Calcium [393704] 07/05/2023 04:03 AM 9.5 mg/dL 8.7-10.2 mg/dL Protein, Total [181587] 07/05/2023 04:07 AM 6.7 g/dL 6.0-8.5 g/dL Albumin [218610] 07/05/2023 04:05 AM 4.4 g/dL 3.8-4.9 g/dL Globulin, Total [357497] 07/05/2023 04:07 AM 2.3 g/dL 1.5-4.5 g/dL A/G Ratio [860002] 07/05/2023 04:07 AM 1.9 1.2-2.2 Bilirubin, Total [095384] 07/05/2023 04:07 AM 0.4 mg/dL 0.0-1.2 mg/d L Alkaline Phosphatase [592151] 07/05/2023 04:10 AM 69 IU/L 44-121 IU/L AST (SGOT) [367021] 07/05/2023 04:11 AM 21 IU/L 0-40 IU/L ALT (SGPT) [175907] 07/05/2023 04:11 AM 16 IU/L 0-32 IU/L Lipid Panel[[id number]] Collected: 07/04/2023 04:01 PM Specimen Received: 07/04/2023 05:00 AM Source: [facility] Cholesterol, Total [[id number]] 07/05/2023 04:39 AM 259 mg/dL H 100-199 mg/d L Triglycerides [637575] 07/05/2023 04:36 AM 80 mg/dL 0-149 mg/dL HDL Cholesterol [894708] 07/05/2023 04:37 AM 90 mg/dL >39 mg/dL VLDL Cholesterol Eren [629681] 07/05/2023 04:39 AM 13 mg/dL 5-40 mg/dL LDL Chol Calc ([facility]) [191340] 07/05/2023 04:39 AM 156 mg/dL H 0-99 mg/dL Albumin/Creatinine Ratio,Uri ne[[id number]] Collected: 07/04/2023 04:01 PM Specimen Received: 07/04/2023 05:00 AM Source: [facility] Creatinine, Urine [[id number]] 07/05/2023 05:43 PM 189.1 mg/dL Not Estab. m g/dL Albumin, Urine [[id number]] 07/05/2023 05:51 PM 9.6 ug/mL Not Estab. ug/mL Alb/Creat Ratio [843978] 07/05/2023 05:51 PM 5 mg/g creat 0-29 mg/g creat Normal: 0 - 29 Moderately in creased: 30 - 300 Severely increased: >300 Hemoglobin A1c[783395] Collected: 07/04/2023 04:01 PM Specimen Received: 07/04/2023 05:00 AM Source: [facility] Hemoglobin A1c [[id number]] 07/05/2023 03:59 AM 5.4 % 4.8-5.6 % . Prediabetes: 5.7 - 6.4 [place] betes: >6.4 Glycemic control for adults with diabetes: 7.0 Comp. Metabolic Panel (14)[3 [id number]] Collected: 02/11/2023 04:56 PM Specimen Received: 02/11/2023 05:00 AM Source: [facility] Glucose [[id number]] 02/12/2023 12:31 PM 123 mg/dL H 70-99 mg/dL BUN [[id number]] 02/12/2023 12:31 PM 16 mg/dL 6-2 4 mg/dL Creatinine [049696] 02/12/2023 12:31 PM 0.76 mg/dL 0.57-1.00 mg/dL eGFR [658845] 02/12/2023 12:31 PM 91 mL/min/1.73 >59 mL/min/1.73 BUN/Creatinine Ratio [579452] 02/12/2023 12:31 PM 21 9-23 Sodium [533567] 02/12/2023 12:31 PM 139 mmol/L 134-144 mmol/L Potassium [332507] 02/12/2023 12:31 PM 4.5 mmol/L 3.5-5.2 mmol/L Chloride [087080] 02/12/2023 12:31 PM 99 mmol/L 96-106 mmol/L Carbon Dioxide, Total [170015] 02/12/2023 12:31 PM 23 mmol/L 20-29 mmol/L Calcium [266516] 02/12/2023 12:31 PM 10.2 mg/dL 8.7-10.2 mg/dL Protein, Total [253782] 02/12/2023 12:31 PM 7.2 g/dL 6.0-8.5 g/dL Albumin [790580] 02/12/2023 12:31 PM 4.6 g/dL 3.8-4.9 g/dL Globulin, Total [299814] 02/12/2023 12:31 PM 2.6 g/dL 1.5-4.5 g/dL A/G Ratio [660411] 02/12/2023 12:31 PM 1.8 1.2-2.2 Bilirubin, Total [498051] 02/12/2023 12:31 PM 0.5 mg/dL 0.0-1.2 mg/d L Alkaline Phosphatase [860346] 02/12/2023 12:31 PM 78 IU/L 44-121 IU/L AST (SGOT) [247438] 02/12/2023 12:31 PM 24 IU/L 0-40 IU/L ALT (SGPT) [385123] 02/12/2023 12:31 PM 18 IU/L 0-32 IU/L Lipid Panel[[id number]] Collected: 02/11/2023 04:56 PM Specimen Received: 02/11/2023 05:00 AM Source: [facility] Cholesterol, Total [[id number]] 02/12/2023 12:25 PM 330 mg/dL H 100-199 mg/d L Triglycerides [984933] 02/12/2023 12:25 PM 99 mg/dL 0-149 mg/dL HDL Cholesterol [[id number]] 02/12/2023 12:25 PM 71 mg/dL >39 mg/dL VLDL Cholesterol Eren [261680] 02/12/2023 12:25 PM 16 mg/dL 5-40 mg/dL LDL Chol Calc ([facility]) [[id number]] 02/12/2023 12:25 PM 243 mg/dL H 0-99 mg/dL Comment: [731286] 02/12/2023 12:25 PM 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 FH should be suspected whenfasting LDL cholesterol is above 189 mg/dL or non-HDL cholesterolis above 219 mg/dL. A family history of high cholesterol and heartdisease in 1st degree relatives should be collected. J Clin [id number];5:133-140 Hemoglobin A1c[[id number]] Collected: 02/11/2023 04:56 PM Specimen Received: 02/11/2023 05:00 AM [facility] Hemoglobin A1c [[id number]] 02/12/2023 12:00 PM 5.4 % 4.8-5.6 % . Prediabetes: 5.7 - 6.4 [place] betes: >6.4 Glycemic control for adults with diabetes: 7.0 Allergies, adverse reactions, alerts No known allergies and adverse reactions Medications No administered medications reported Vital Signs No vital signs reported Social History No smoking Hx information available
--- OUTSIDE RECORDS SUMMARY | 2024-10-21 11:33 | XMS_ITS | Encounter Summary ---
Author Organization [facility] Address [address] [place] [address] Phone Care Team Providers Care Ticket Clerk Name Role Phone Aliyah Campos SPOOL HAULER Primary Care Provider Encounter Details Date Type Department Care Team (Late st Contact Info) Description 09/25/2023 Transcribe Orders [facility] Specimen Processing [address] [place] [address] Aliyah Campos, BROOKE [address] [facility] [address] [place] [address] Social History Tobacco Use Types Packs/Day Years Used Date Smoking Tobacco: Former Cigarettes 1995 Smokeless Tobacco: Never Alcohol Use Standard Drinks/Week Comments Yes 10 (1 standard drink = 0.6 oz pure alcohol) 2 glasses of wine with dinner most nights. Education Answer Date Recorded Are you interested in more education? Not on navi e 07/21/2022 Are you concerned about learning? Not on file 07/21/2022 No 07/21/2022 No 07/21/2022 Digital Access Answer Date Recorded No 07/21/2022 No 07/21/2022 Reliable internet access at home? Not on file 07/21/2022 Device with a working camera? Not on file Comments No Sex and Gender Information Value Date Recorded Sex Assigned at Not on file Legal Sex Female 10:42 AM EDT Gender Identity Not on file Sexual Orientation Not on file documented as of this encounter Functional Status * Calculated C-SSRS Risk Score (Lifetime/Recent) Answer Date of Assessment Author No Risk Indicated 09/25/2023 6:21 AM EDT Lesli Meredith RN * [place] Suicide Severity Rating Scale (Screener/Recent Self-Report) Question Answer Date of Assessment Author 2. Non-Specific Active Suici mae Thoughts (Past 1 Month) No 09/25/2023 6:21 AM EDT Mayela Jones RN documented as of this encounter Plan of Treatment Not on file documented as of this encounter Visit Diagnoses Not on filedocumented in this encounter Care Teams Ticket Clerk Relationship Specialty Start Date End Date Aliyah Campos NP PCP - General Nurse Practitioner 09/12/23 documented as of this encounter Additional Source Comments The information contained in this document represents components of the legal health record. It is not the complete legal health record.[facility]
[2024-10-21 12:20] LABS: Alanine Aminotransferase 19 U/L (0-31); Albumin Level 4.2 g/dL (3.5-5.0); Alkaline Phosphatase 60 U/L (39-117); Anion Gap 12 (12-20); Aspartate Amino Transferase 24 U/L (5-31); Blood Urea Nitrogen 14 mg/dL (9-16); Calcium 9.4 mg/dL (8.4-10.2); Carbon Dioxide 27 mmol/L (22-29); Chloride 106 mmol/L (96-108); Cholesterol 236 mg/dL (<200); Estimated Glomerular Filt Rate > 60; HDL Cholesterol 68 mg/dL (>40); Potassium 4.6 mmol/L (3.3-5.1); Sodium 140 mmol/L (135-145); Total Protein 7.0 g/dL (6.5-8.0); Triglycerides 132 mg/dL (<150)
== END 2024-10-21 10:24 | disposition home or self-care (01) ==
LOC: HO.LAB 10:23
DX: R74.8 Abnormal levels of other serum enzymes (principal); E78.00 Pure hypercholesterolemia, unspecified
CPT/HCPCS: 36415; 80053; 80061

== ENCOUNTER 2024-12-12 12:30 | Outpatient (AMB) | payer BC, SELFPAY ==
--- NOTE | 2024-12-12 12:50 | A.OFFVIS_ITS ---
Intake Visit Reasons: OV - Left Shoulder RTC Tear- PRP Vs Surgery Intake Note: Calista is a 59 year old right hand dominant female who presents today for a follow up of her Bilateral Shoulder Pain. Left > Right. She was last seen with Amy Lott who provided her with a Left Shoulder injection on 09/03/2024. Tod gerardo she presents to discuss surgical interventions (Left RTC) VS PRP Injections. Currently the patient reports that the injection was helpful for about 6 weeks. Once the injection wore off she started taking celebrex which has helpef significantly with her smyptoms but is worried that this is not a termite renewal inspector treatment option. Allergies No Known Allergies Allergy (Verified 10/08/24 12:44) HPI HPI OV - Left Shoulder RTC Tear- PRP Vs Surgery: Details: Calista is a 59 year old right hand dominant female who presents today for a follow up of her Bilateral Shoulder Pain. Left > Right. She was last seen with Aym Lott who provided her with a Left Shoulder injection on 09/03/2024. Today she presents to discuss surgical interventions (Left RTC) VS PRP Injections. Currently the patient reports that the injection was helpful for about 6 weeks. Once the injection wore off she started taking celebrex which has helped significantly with her symptoms but is worried that this is not a snf treatment option. She is still able to golf. She states the pain has not gotten to the point that she is seriously considering surgery. Her MRI showed partial-thickness tearing of the supra and infraspinatus without retraction. [facility] Medical History Disc degeneration, lumbar Colon polyp Chickenpox Arthritis Surgical History H/O colonoscopy [place] teeth removed History of biopsy H/O laser assisted in situ keratomileusis S/P bilateral breast reduction Family History Maternal Grandmother Cancer Maternal Grandfather Heart attack Paternal Grandmother Stroke Father Diabetes type 2 Heart disease Mother Heart disease Brother Cancer of kidney Social History Household Members Other:: Daughter Housing: House Alcohol intake: current Alcohol intake frequency: a few times a week Patient Tobacco Use Status: Never used Tobacco e-Cigarette/Vaping Use: Never Used service: No Current occupational status: employed 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 On exam she has a strong rotator cuff but empty can testing is associated with discomfort but no weakness. She has a positive Brannon and Neer. Results Reviewed Results Reviewed: I personally reviewed the MR images. IMPRESSION: 1. Rim rent type tearing of the anterior supraspinatus tendon, and partial undersurface insertional tearing of the infraspinatus tendon. No full-thickness tear or tendinous retraction. 2. There is approximately 30% tearing and fraying of the subscapularis tendon undersurface. No full-thickness tear. 3. Minimal degenerative arthritis in the glenohumeral joint without cartilage abnormality or subchondral bone plate edema. No joint effusion. 4. Mild AC joint arthritis with minimal undersurface and superior surface spurring. No supraspinatus outlet stenosis. 5. The glenoid labrum appears grossly intact. Assessment & Plan Assessment & Plan (1) Partial thickness rotator cuff tear: Code(s): M75.110 - Incomplete rotator cuff tear or rupture of unspecified shoulder, not specified as traumatic Category: Medical Plan: This is a 59-year-old with a partial-thickness rotator cuff tear. She has had steroid injections which were only briefly helpful and I do not want to repeat these. She is not ready for surgery as she can not function but is doing so with pain. I do think she would benefit from rotator cuff repair but this is aggressive given partial-thickness tearing. It has persisted for several years however. We discussed this at this time we are going to try a PRP injection. I will help coordinate this and she will see me back as needed. Coding Level of Care Code Est Pt Level 3 (63009) Diagnoses Partial thickness rotator cuff tear M75.110
--- OUTSIDE RECORDS SUMMARY | 2024-12-12 15:40 | XMS_ITS | Encounter Summary ---
Author Organization [facility] Address [address] [place] [address] Phone Care Team Providers Care Gas Desulfurizer Name Role Phone Aliyah Campos PATIENT SERVICE TECHNICIAN PST Primary Care Provider Encounter Details Date Type Department Care Team (Late st Contact Info) Description 09/25/2023 Transcribe Orders [facility] Specimen Processing [address] [place] [address] Aliyah Campos, BROOKE [address] [facility] [address] [place] [address] Social History Tobacco Use Types Packs/Day Years [...] 6:21 AM EDT Lesli Meredith RN * [place] Suicide Severity Rating Scale (Screener/Recent Self-Report) Question Answer Date of Assessment Author 2. Non-Specific Active Suici mae Thoughts (Past 1 Month) No 09/25/2023 6:21 AM EDT Mayela Jones RN documented as of this encounter Plan of Treatment Not on file documented as of this encounter Visit Diagnoses Not on filedocumented in this encounter Care Teams Gas Desulfurizer Relationship Specialty Start Date End Date Aliyah Campos NP PCP - General Nurse Practitioner 09/12/23 documented as of this encounter Additional Source Comments The information contained in this document represents components of the legal health record. It is not the complete legal health record.[facility]
--- OUTSIDE RECORDS SUMMARY | 2024-12-12 15:40 | XMS_ITS | Encounter Summary ---
Author Organization [facility] Address [address] [place] [address] Phone Care Team Providers Care Stock House Worker Name Role Phone Aliyah Campos NP Primary Care Provider Encounter Details Date Type Department Care Team (Late st Contact Info) Description 09/25/2023 Procedure Pass OR Admitting Dept - Virtual Department [address] [place] [address] Social History Tobacco Use Types Packs/Day Years [...] 6:21 AM EDT Lesli Meredith RN * [place] Suicide Severity Rating Scale (Screener/Recent Self-Report) Question Answer Date of Assessment Author 2. Non-Specific Active Suici mae Thoughts (Past 1 Month) No 09/25/2023 6:21 AM EDT Mayela Jones RN documented as of this encounter Plan of Treatment Not on file documented as of this encounter Visit Diagnoses Not on filedocumented in this encounter Care Teams Stock House Worker Relationship Specialty Start Date End Date Aliyah Campos NP PCP - General Nurse Practitioner 09/12/23 documented as of this encounter Additional Source Comments The information contained in this document represents components of the legal health record. It is not the complete legal health record.[facility]
--- OUTSIDE RECORDS SUMMARY | 2024-12-12 15:40 | XMS_ITS | Clinical Summary ---
Author Organization [facility] [address] Address [address] [facility] [place] [address] Phone Care Team Providers Care Planning Supervisor Name Role Phone Deya Mixon MD Primary Care Provider [phone] Allergies No known active allergies Medications estradioL [...] (01/15/2024): IMO update Pure hypercholesterolemia 06/23/2005 Immunizations Immunization Administration Dates Next Due Influenza Quadravalent, MDCK [...] Date Site/Laterality Comments BREAST REDUCTION - PROCEDURE: ID BREAST REDUCTION OTHER SURGICAL HISTORY 05/29/06 PROCEDURE: ID CRYOTHERAPY CO2 SLUSH LIQUID N2 ACNE; COMMENT: [...] 02/05/2022 Social Influencers of Health Screening 02/05/2022 Depression Screening 02/28/2024 Cervical Cancer Screening: HPV 04/01/2024 04/01/2019 COVID-19 Vaccine ( season) 2024 02/02/2021, 07/08/2020, 06/17/2020 Influenza Vaccine (#1) 2024 2, 01/12/2020, 12/23/2018, Additional history exists Colorectal Cancer [...] l Result * Hepatitis C Screening (08/04/2021) [facility] Hepatitis C Screening Abstracted Historical Provider HEALTH MAINTENANCE Final Result * Cervical Cancer Screening: HPV (04/01/2019) [facility] Cervical Cancer Screening: HPV Negative, abstracted [facility] Provider HEALTH MAINTENANCE Final Result * Colonoscopy (04/22/2016) Pathologist [facility] Colonoscopy No interpretation , abstracted Anatomical Region Laterality Modality Other Historical Provider HEALTH MAINTENANCE Final Result from Last 3 Months or Most Recently Relevant [place] [id number] BLUE CROSS - [place] (ANTHEM) Care Teams Planning Supervisor Relationship Specialty Start Date End Date Deya Mixon MD PCP - General 08/14/23
--- OUTSIDE RECORDS SUMMARY | 2024-12-12 15:41 | XMS_ITS | Clinical Summary ---
Author Organization [facility] Address [address] [place] [address] Phone Care Team Providers Care Ice Cream Maker Name Role Phone Aliyah Campos NP Primary Care Provider Allergies No known active allergies Medications estradioL (ESTRACE) 2 MG tablet 05/29/2022 Active acyclovir (ZOVIRAX) 400 MG tablet 02/14/2023 Active b complex vitamins capsule Take 1 capsule by mouth daily. Active ondansetron (ZOFRAN) 4 MG tablet Take 1 tablet (4 mg total) by mouth every 8 (eight) hours as needed for nausea. 30 tablet 3 09/12/2023 Active oxyCODONE-aceta minophen (PERCOCET) 5-325 mg per tablet Take 1 tablet by mouth every 4 (four) hours as needed for pain (specific location in comments). Partial fill ok 30 tablet 09/12/2023 Active Active Problems Problem Noted Date Diagnosed Date S/P bilateral breast implants 10/09/2023 Breast implant deflation, initial encounter 04/28 Family History Relation Status Comments Father Mother Alive Social History Tobacco Use Types Packs/Day Years Used Date Smoking Tobacco: Former Cigarettes 1 - 1995 Smokeless Tobacco: Never Tobacco Cessation:Counseling Given: Not Answered Alcohol Use Standard Drinks/Week Comments Yes 10 [...] on file Sexual Orientation Not on file Last Filed Vital Signs Vital Sign Reading Time Taken Comments Blood Pressure 140/75 09/25/2023 11:50 AM EDT Pulse 59 09/25/2023 9:25 AM EDT Temperature 36.1 C (97 F) 09/25/2023 9:00 AM EDT Respiratory Rate 12 09/25/2023 9:25 AM EDT Oxygen Saturation 99% 09/25/2023 11:50 AM EDT Inhaled Oxygen Concentration - - Weight 77.6 kg (171 lb) 09/25/2023 6:20 AM EDT Height 170.2 cm (5' 7 ) 09/25/2023 6:20 AM EDT Body Mass Index 26.78 09/25/2023 6:20 AM EDT Plan of Treatment Health Maintenance Due Date Last Done Comments LIPID PANEL 1965 DEPRESSION SCREENING 1977 SMOKING Hx and SMOKELESS TOBACCO SCREENING 1978 HEPATITIS C SCREENING 08/31/1983 HIV ONE-TIME SCREENING (18-65 YEARS) 08/31/1983 PAP SMEAR 1986 SCREENING FOR DIABETES 2000 MAMMOGRAM 2005 COLOGUARD 2010 COLONOSCOPY 2010 COLORECTAL CANCER SCREENING 2010 FIT TEST 2010 FOBT 2010 SIGMOIDOSCOPY 2010 VIRTUAL COLONOSCOPY 2010 PNEUMOCOCCAL VACCINES (50+ years) (1 of 1 - PCV) 08/31/2015 INFLUENZA VACCINE (#1) 2024 2, 01/12/2020, 12/23/2018, Additional history exists COVID-19 VACCINE ( season) 2024 02/02/2021, 07/08/2020, 06/17/2020 Adult Td,Tdap Booster 08/05/2031 08/04/2021 , 08/25/2009, 03/30/1999 RSV VACCINE (1 - 1-dose 75+ series) 2040 ZOSTER VACCINES Completed 04/13/2021, 02/02/2021 HEPATITIS A VACCINES Aged Out No long er eligible based on patient's age to complete this topic HIB VACCINES Aged Out No longer eligi ble based on patient's age to complete this topic MENINGOCOCCAL VACCINES (ACWY) Aged Out No longer eligible based on patient's age to complete this topic MENINGOCOCCAL VACCINES (B) Aged Out N o longer eligible based on patient's age to complete this topic Medical Devices Implanted Type Area Engineering Intern Device Identifier Shelf Expiration Date Model / Serial / Lot [place] Memoy Gel Boost Breast Implant 340 Cc Ref # [id number] Implanted:Qty: 1 on 09/25/2023 by Andres Bearden DO at [facility] Right: Breast 11/13/2027 / / [id number] Whiteside Memory Gel Boost Breast Implant 340cc Ref # [id number] Implanted:Qty: 1 on 09/25/2023 by Andres Bearden DO at [facility] Left: Breast 03/18/2028 / / [id number] Explanted Type Area Engineering Intern Device Identifier Shelf Expiration Date Model / Serial / Lot Breast Explanted:Qty: 2 on 09/25/2023 by Andres Bearden DO at [facility] Breast Description:[facility] STYLE 68M P 300CC LOT #'[id number] Insurance [facility] OUT STATE PPO BLUE CROSS OUT OF STATE PPO BLUE CROSS OUT OF STATE PPO BLUE CROSS OUT OF [place] [address] [place] [address] OUT [place] [facility] [place] [address] [address] OUT OF [employer] PPO Advance Directives For more information, please contact: [phone] (9AM - 5PM [facility], Monday-Monday) * Full Code (Latest Code Status on File) Date Activated Date Inactivated Comments 09/25/2023 6:12 AM Question Answer Comments Code Status Confirmed With: Patient Care Teams Ice Cream Maker Relationship Specialty Start Date End Date Aliyah Campos NP PCP - General Nurse Practitioner 09/12/23 Additional Source Comments The information contained in this document represents components of the legal health record. It is not the complete legal health record.[facility]
--- OUTSIDE RECORDS SUMMARY | 2024-12-12 15:41 | XMS_ITS | Continuity of Care Document ---
[facility] Address [address] [place] [address] Insurance Providers Payer Plan Claims Address Claims Phone Policy Number Group Number Relation Employer Guarantor Name Guarantor Guarantor Address Guarantor Phone Blue Cross Blue Shield BLUE CROSS BLUE SHIEL D [address], [place] [address] tel:[phone] [id number] Self Calista Watson [address], [place] [address] [place] [employer] [address], [place] [address] tel:[phone] [id number] Self Calista Watson [address] [place], [place] [id number] [phone] [place] AN[employer] M [address], [place] [address] tel:[phone] [id number] Self Calista Watson [address] [place], [place] [id number] (157) Problems Unknown Problems Results Test Result Date/Time Value / Unit Interp. Refere nee Range Comp. Metabolic Panel (14)[3 [id number]] Collected: 12/04/2023 05:01 PM Specimen Received: 12/04/2023 05:00 AM Source: [facility] Glucose [[id number]] 12/05/2023 03:51 AM 87 mg/dL 70-99 mg/dL BUN [[id number]] 12/05/2023 03:52 AM 17 mg/dL 6-2 4 mg/dL Creatinine [820985] 12/05/2023 03:52 AM 0.62 mg/dL 0.57-1.00 mg/dL eGFR [693582] 12/05/2023 03:52 AM 103 mL/min/1.73 >59 mL/min/1.73 BUN/Creatinine Ratio [522857] 12/05/2023 03:52 AM 27 H 9-23 Sodium [399003] 12/05/2023 03:49 AM 140 mmol/L 134-144 mmol/L Potassium [733201] 12/05/2023 03:51 AM 4.5 mmol/L 3.5-5.2 mmol/L Chloride [775805] 12/05/2023 03:48 AM 100 mmol/L 96-106 mmol/L Carbon Dioxide, Total [641741] 12/05/2023 03:51 AM 24 mmol/L 20-29 mmol/L Calcium [194444] 12/05/2023 03:51 AM 9.6 mg/dL 8.7-10.2 mg/dL Protein, Total [621661] 12/05/2023 03:52 AM 7.5 g/dL 6.0-8.5 g/dL Albumin [366581] 12/05/2023 03:52 AM 4.6 g/dL 3.8-4.9 g/dL Globulin, Total [499598] 12/05/2023 03:52 AM 2.9 g/dL 1.5-4.5 g/dL Bilirubin, Total [638083] 12/05/2023 03:52 AM 0.3 mg/dL 0.0-1.2 mg/d L Alkaline Phosphatase [140977] 12/05/2023 03:52 AM 62 IU/L 44-121 IU/L AST (SGOT) [023892] 12/05/2023 03:51 AM 18 IU/L 0-40 IU/L ALT (SGPT) [363164] 12/05/2023 03:52 AM 16 IU/L 0-32 IU/L Lipid Panel[[id number]] Collected: 12/04/2023 05:01 PM Specimen Received: 12/04/2023 05:00 AM Source: [facility] Cholesterol, Total [[id number]] 12/05/2023 04:00 AM 261 mg/dL H 100-199 mg/d L Triglycerides [414964] 12/05/2023 03:58 AM 128 mg/dL 0-149 mg/dL HDL Cholesterol [206937] 12/05/2023 03:58 AM 104 mg/dL >39 mg/dL VLDL Cholesterol Eren [709314] 12/05/2023 04:00 AM 22 mg/dL 5-40 mg/dL LDL Chol Calc ([facility]) [233899] 12/05/2023 04:00 AM 135 mg/dL H 0-99 mg/dL Hemoglobin A1c[508260] Collected: 12/04/2023 05:01 PM Specimen Received: 12/04/2023 05:00 AM Source: [facility] Hemoglobin A1c [[id number]] 12/05/2023 06:55 AM 5.5 % 4.8-5.6 % . Prediabetes: 5.7 - 6.4 [place] betes: >6.4 Glycemic control for adults with diabetes: 7.0 Comp. Metabolic Panel (14)[3 16985] Collected: 07/04/2023 04:01 PM Specimen Received: 07/04/2023 05:00 AM Source: [facility] Glucose [[id number]] 07/05/2023 04:03 AM 111 mg/dL H 70-99 mg/dL BUN [650537] 07/05/2023 04:03 AM 13 mg/dL 6-2 4 mg/dL Creatinine [350341] 07/05/2023 03:53 AM 0.76 mg/dL 0.57-1.00 mg/dL eGFR [504986] 07/05/2023 03:53 AM 91 mL/min/1.73 >59 mL/min/1.73 BUN/Creatinine Ratio [487591] 07/05/2023 04:03 AM 17 9-23 Sodium [331972] 07/05/2023 03:55 AM 143 mmol/L 134-144 mmol/L Potassium [754799] 07/05/2023 03:58 AM 4.6 mmol/L 3.5-5.2 mmol/L Chloride [871071] 07/05/2023 03:55 AM 102 mmol/L 96-106 mmol/L Carbon Dioxide, Total [681643] 07/05/2023 04:02 AM 25 mmol/L 20-29 mmol/L Calcium [424542] 07/05/2023 04:03 AM 9.5 mg/dL 8.7-10.2 mg/dL Protein, Total [811944] 07/05/2023 04:07 AM 6.7 g/dL 6.0-8.5 g/dL Albumin [993750] 07/05/2023 04:05 AM 4.4 g/dL 3.8-4.9 g/dL Globulin, Total [616035] 07/05/2023 04:07 AM 2.3 g/dL 1.5-4.5 g/dL A/G Ratio [479728] 07/05/2023 04:07 AM 1.9 1.2-2.2 Bilirubin, Total [389653] 07/05/2023 04:07 AM 0.4 mg/dL 0.0-1.2 mg/d L Alkaline Phosphatase [948462] 07/05/2023 04:10 AM 69 IU/L 44-121 IU/L AST (SGOT) [517831] 07/05/2023 04:11 AM 21 IU/L 0-40 IU/L ALT (SGPT) [220975] 07/05/2023 04:11 AM 16 IU/L 0-32 IU/L Lipid Panel[[id number]] Collected: 07/04/2023 04:01 PM Specimen Received: 07/04/2023 05:00 AM Source: [facility] Cholesterol, Total [[id number]] 07/05/2023 04:39 AM 259 mg/dL H 100-199 mg/d L Triglycerides [700385] 07/05/2023 04:36 AM 80 mg/dL 0-149 mg/dL HDL Cholesterol [634155] 07/05/2023 04:37 AM 90 mg/dL >39 mg/dL VLDL Cholesterol Eren [826542] 07/05/2023 04:39 AM 13 mg/dL 5-40 mg/dL LDL Chol Calc ([facility]) [251624] 07/05/2023 04:39 AM 156 mg/dL H 0-99 mg/dL Albumin/Creatinine Ratio,Uri ne[535770] Collected: 07/04/2023 04:01 PM Specimen Received: 07/04/2023 05:00 AM Source: [facility] Creatinine, Urine [[id number]] 07/05/2023 05:43 PM 189.1 mg/dL Not Estab. m g/dL Albumin, Urine [[id number]] 07/05/2023 05:51 PM 9.6 ug/mL Not Estab. ug/mL Alb/Creat Ratio [773193] 07/05/2023 05:51 PM 5 mg/g creat 0-29 mg/g creat Normal: 0 - 29 Moderately in creased: 30 - 300 Severely increased: >300 Hemoglobin A1c[[id number]] Collected: 07/04/2023 04:01 PM Specimen Received: 07/04/2023 05:00 AM Source: [facility] Hemoglobin A1c [[id number]] 07/05/2023 03:59 AM 5.4 % 4.8-5.6 % . Prediabetes: 5.7 - 6.4 [place] betes: >6.4 Glycemic control for adults with diabetes: 7.0 Comp. Metabolic Panel (14)[3 73993] Collected: 02/11/2023 04:56 PM Specimen Received: 02/11/2023 05:00 AM Source: [facility] Glucose [[id number]] 02/12/2023 12:31 PM 123 mg/dL H 70-99 mg/dL BUN [[id number]] 02/12/2023 12:31 PM 16 mg/dL 6-2 4 mg/dL Creatinine [[id number]] 02/12/2023 12:31 PM 0.76 mg/dL 0.57-1.00 mg/dL eGFR [483450] 02/12/2023 12:31 PM 91 mL/min/1.73 >59 mL/min/1.73 BUN/Creatinine Ratio [203224] 02/12/2023 12:31 PM 21 9-23 Sodium [438295] 02/12/2023 12:31 PM 139 mmol/L 134-144 mmol/L Potassium [417189] 02/12/2023 12:31 PM 4.5 mmol/L 3.5-5.2 mmol/L Chloride [529346] 02/12/2023 12:31 PM 99 mmol/L 96-106 mmol/L Carbon Dioxide, Total [994314] 02/12/2023 12:31 PM 23 mmol/L 20-29 mmol/L Calcium [795456] 02/12/2023 12:31 PM 10.2 mg/dL 8.7-10.2 mg/dL Protein, Total [505730] 02/12/2023 12:31 PM 7.2 g/dL 6.0-8.5 g/dL Albumin [[id number]] 02/12/2023 12:31 PM 4.6 g/dL 3.8-4.9 g/dL Globulin, Total [491954] 02/12/2023 12:31 PM 2.6 g/dL 1.5-4.5 g/dL A/G Ratio [484039] 02/12/2023 12:31 PM 1.8 1.2-2.2 Bilirubin, Total [107142] 02/12/2023 12:31 PM 0.5 mg/dL 0.0-1.2 mg/d L Alkaline Phosphatase [663981] 02/12/2023 12:31 PM 78 IU/L 44-121 IU/L AST (SGOT) [605845] 02/12/2023 12:31 PM 24 IU/L 0-40 IU/L ALT (SGPT) [415620] 02/12/2023 12:31 PM 18 IU/L 0-32 IU/L Lipid Panel[[id number]] Collected: 02/11/2023 04:56 PM Specimen Received: 02/11/2023 05:00 AM Source: [facility] Cholesterol, Total [[id number]] 02/12/2023 12:25 PM 330 mg/dL H 100-199 mg/d L Triglycerides [563204] 02/12/2023 12:25 PM 99 mg/dL 0-149 mg/dL HDL Cholesterol [[id number]] 02/12/2023 12:25 PM 71 mg/dL >39 mg/dL VLDL Cholesterol Eren [127068] 02/12/2023 12:25 PM 16 mg/dL 5-40 mg/dL LDL Chol Calc ([facility]) [483323] 02/12/2023 12:25 PM 243 mg/dL H 0-99 mg/dL Comment: [391217] 02/12/2023 12:25 PM 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 FH should be suspected whenfasting LDL cholesterol is above 189 mg/dL or non-HDL cholesterolis above 219 mg/dL. A family history of high cholesterol and heartdisease in 1st degree relatives should be collected. J Clin Ivhivoz4810;5:133-140 Hemoglobin A1c[[id number]] Collected: 02/11/2023 04:56 PM Specimen Received: 02/11/2023 05:00 AM Source: [facility] Hemoglobin A1c [[id number]] 02/12/2023 12:00 PM 5.4 % 4.8-5.6 % . Prediabetes: 5.7 - 6.4 [place] betes: >6.4 Glycemic control for adults with diabetes: 7.0 Allergies, adverse reactions, alerts No known allergies and adverse reactions Medications No administered medications reported Vital Signs No vital signs reported Social History No smoking Hx information available
== END 2024-12-12 14:23 | disposition home or self-care (01) ==
LOC: HO.HOS 12:31
PROVIDERS: Visit Provider Orthopaedic Surgery
DX: M75.110 Incomplete rotator cuff tear or rupture of unspecified shoulder, not specified as traumatic (principal)
CPT/HCPCS: 99213

== ENCOUNTER 2024-12-31 08:45 | Outpatient (REF) | payer BC, SELFPAY ==
--- OUTSIDE RECORDS SUMMARY | 2024-12-31 09:15 | XMS_ITS | Clinical Summary ---
Author Organization [facility] Address [address] [place] [address] Phone Care Team Providers Care Diesel Trailer Mechanic Name Role Phone Alyiah Campos NP Primary Care Provider Allergies No [...] this topic Medical Devices Implanted Type Area Monorail Charger Operator Device Identifier Shelf Expiration Date Model / Serial / Lot [place] Memoy Gel Boost Breast Implant 340 Cc Ref # [id number] Implanted:Qty: 1 on 09/25/2023 by Andres Bearden DO at [facility] Right: Breast 11/13/2027 / / [id number] [place] Memory Gel Boost Breast Implant 340cc Ref # [id number] Implanted:Qty: 1 on 09/25/2023 by Andres Bearden DO at [facility] Left: Breast 03/18/2028 / / [id number] Explanted Type Area Monorail Charger Operator Device Identifier Shelf Expiration Date Model / Serial / Lot Breast Explanted:Qty: 2 on 09/25/2023 by Andres Bearden DO at [facility] Breast Description:[facility] STYLE 68M P 300CC LOT #'[id number] Insurance [facility] OUT STATE PPO BLUE CROSS OUT OF STATE PPO BLUE CROSS OUT OF STATE PPO BLUE CROSS OUT OF STATE [place] [place] [address] OUT OF [facility] [place] [address] OUT OF [facility] PPO Advance Directives For more information, please contact: [phone] (9AM - 5PM [facility], Monday-Monday) * Full Code (Latest Code Status on File) Date Activated Date Inactivated Comments 09/25/2023 6:12 AM Question Answer Comments Code Status Confirmed With: Patient Care Teams Diesel Trailer Mechanic Relationship Specialty Start Date End Date Aliyah Campos NP PCP - General Nurse Practitioner 09/12/23 Additional Source Comments The information contained in this document represents components of the legal health record. It is not the complete legal health record.[facility]
--- OUTSIDE RECORDS SUMMARY | 2024-12-31 09:15 | XMS_ITS | Clinical Summary ---
Author Organization [facility] [address] Address [address] [facility] [address] Phone Care Team Providers Care Powertrain Calibration Engineer Name Role Phone Deya Mixon MD Primary Care Provider [phone] Allergies No known active allergies Medications estradioL [...] Date Site/Laterality Comments BREAST REDUCTION - PROCEDURE: [place] BREAST REDUCTION OTHER SURGICAL HISTORY 05/29/06 PROCEDURE: [place] CRYOTHERAPY CO2 SLUSH LIQUID N2 ACNE; COMMENT: [...] l Result * Hepatitis C Screening (08/04/2021) [facility] Hepatitis C Screening Abstracted Historical Provider HEALTH MAINTENANCE Final Result * Cervical Cancer Screening: HPV (04/01/2019) [facility] Cervical Cancer Screening: HPV Negative, abstracted [facility] Provider HEALTH MAINTENANCE Final Result * Colonoscopy (04/22/2016) Pathologist [facility] Colonoscopy No interpretation , abstracted Anatomical Region Laterality Modality Other Historical Provider HEALTH MAINTENANCE Final Result from Last 3 Months or Most Recently Relevant to [place] [id number] BLUE CROSS - IN (ANTHEM) Care Teams Powertrain Calibration Engineer Relationship Specialty Start Date End Date Deya Mixno MD PCP - General 08/14/23
--- OUTSIDE RECORDS SUMMARY | 2024-12-31 09:15 | XMS_ITS | Encounter Summary ---
Author Organization [facility] Address [address] [place] [address] Phone Care Team Providers Care Data Support Analyst Name Role Phone Aliyah Campos TRACK LAMINATING MACHINE TENDER Primary Care Provider Encounter Details Date Type Department Care Team (Late st Contact Info) Description 09/25/2023 Transcribe Orders [facility] Specimen Processing [address] [place] [address] Aliyah Campos, BROOKE [address] [facility] [address] [place] [address] Social History Tobacco Use Types Packs/Day Years [...] 6:21 AM EDT Lesli Meredith RN * [place] Suicide Severity Rating Scale (Screener/Recent Self-Report) Question Answer Date of Assessment Author 2. Non-Specific Active Suici mae Thoughts (Past 1 Month) No 09/25/2023 6:21 AM EDT Mayela Jones RN documented as of this encounter Plan of Treatment Not on file documented as of this encounter Visit Diagnoses Not on filedocumented in this encounter Care Teams Data Support Analyst Relationship Specialty Start Date End Date Aliyah Capmos NP PCP - General Nurse Practitioner 09/12/23 documented as of this encounter Additional Source Comments The information contained in this document represents components of the legal health record. It is not the complete legal health record.[facility]
--- OUTSIDE RECORDS SUMMARY | 2024-12-31 09:15 | XMS_ITS | Encounter Summary ---
Author Organization [facility] Address [address] [place] [address] Phone Care Team Providers Care Clay Processing Factory Worker Name Role Phone Aliyah Campos NP Primary Care Provider Encounter Details Date Type Department Care Team (Late st Contact Info) Description 09/25/2023 Procedure Pass OR Admitting Dept - Virtual Department [address] [place] [address] Social History Tobacco Use Types Packs/Day Years [...] 6:21 AM EDT Lesli Meredith RN * [place] Suicide Severity Rating Scale (Screener/Recent Self-Report) Question Answer Date of Assessment Author 2. Non-Specific Active Suici mae Thoughts (Past 1 Month) No 09/25/2023 6:21 AM EDT Mayela Jones RN documented as of this encounter Plan of Treatment Not on file documented as of this encounter Visit Diagnoses Not on filedocumented in this encounter Care Teams Clay Processing Factory Worker Relationship Specialty Start Date End Date Aliyah Campos NP PCP - General Nurse Practitioner 09/12/23 documented as of this encounter Additional Source Comments The information contained in this document represents components of the legal health record. It is not the complete legal health record.[facility]
[2024-12-31 09:54] LABS: Appearance Urine Clear; Glucose Urine UA Negative (Negative); PH 6.0 (5.0-9.0); Specific Gravity - Urine 1.020 (1.005-1.025)
[2024-12-31 10:57] LABS: Alanine Aminotransferase 18 U/L (0-31); Albumin Level 4.2 g/dL (3.5-5.0); Alkaline Phosphatase 62 U/L (39-117); Anion Gap 12 (12-20); Aspartate Amino Transferase 23 U/L (5-31); Blood Urea Nitrogen 17 mg/dL (9-16); Calcium 9.0 mg/dL (8.4-10.2); Carbon Dioxide 27 mmol/L (22-29); Chloride 105 mmol/L (96-108); Cholesterol 255 mg/dL (<200); Estimated Glomerular Filt Rate > 60; HDL Cholesterol 76 mg/dL (>40); Potassium 4.5 mmol/L (3.3-5.1); Sodium 139 mmol/L (135-145); Total Protein 7.1 g/dL (6.5-8.0); Triglycerides 136 mg/dL (<150)
== END 2024-12-31 08:46 | disposition home or self-care (01) ==
LOC: HO.LAB 08:45
DX: R74.8 Abnormal levels of other serum enzymes (principal); E78.00 Pure hypercholesterolemia, unspecified
CPT/HCPCS: 36415; 80053; 80061; 81003; 82306; 84443

== ENCOUNTER 2025-01-07 10:56 | Outpatient (REF) | payer BC, SELFPAY ==
--- NOTE | ~2025-01-07 | XR_ITS ---
EXAMINATION: XR HAND, LEFT CLINICAL INFORMATION: M79.645 - Pain in left finger(s) COMPARISON: None available. TECHNIQUE: PA, lateral, and oblique views of the left hand. FINDINGS: The bones and soft tissues are normal. No fracture. Alignment is anatomic. Joint spaces are maintained. No erosions or soft tissue calcifications. XR/XR hand LT min 3V IMPRESSION: Unremarkable left hand. Electronically signed by: Daren Mccoy MD 01/07/2025 12:56 PM EST
--- OUTSIDE RECORDS SUMMARY | 2025-01-07 14:04 | XMS_ITS | Continuity of Care Document ---
Author Organization [facility] Address [address] [place] [address] Insurance Providers Payer Plan Claims Address Claims Phone Policy Number Group Number Relation Employer Guarantor Name Guarantor Guarantor Address Guarantor Phone Blue Cross Blue Shield [employer] D [address], [place] [address] tel:[phone] [id number] [phone] Self Calista Watson [address], [place] [address] [place] [employer] [address], [place] [address] tel:[phone] [id number] Self Calista Watson [address] [place], [place] [id number] [phone] [place] [employer] [address], [place] [address] tel:[phone] [id number] Self Calista Watson [address] [place], [place] [id number] Problems Unknown Problems Results Test Result Date/Time Value / Unit Interp. Refere nce Range Comp. Metabolic Panel (14)[3 [id number]] Collected: 12/04/2023 05:01 PM Specimen Received: 12/04/2023 05:00 AM Source: [facility] Glucose [[id number]] 12/05/2023 03:51 AM 87 mg/dL 70-99 mg/dL BUN [[id number]] 12/05/2023 03:52 AM 17 mg/dL 6-2 4 mg/dL Creatinine [577550] 12/05/2023 03:52 AM 0.62 mg/dL 0.57-1.00 mg/dL eGFR [038699] 12/05/2023 03:52 AM 103 mL/min/1.73 >59 mL/min/1.73 BUN/Creatinine Ratio [180548] 12/05/2023 03:52 AM 27 H 9-23 Sodium [368430] 12/05/2023 03:49 AM 140 mmol/L 134-144 mmol/L Potassium [027187] 12/05/2023 03:51 AM 4.5 mmol/L 3.5-5.2 mmol/L Chloride [702055] 12/05/2023 03:48 AM 100 mmol/L 96-106 mmol/L Carbon Dioxide, Total [657637] 12/05/2023 03:51 AM 24 mmol/L 20-29 mmol/L Calcium [381241] 12/05/2023 03:51 AM 9.6 mg/dL 8.7-10.2 mg/dL Protein, Total [914279] 12/05/2023 03:52 AM 7.5 g/dL 6.0-8.5 g/dL Albumin [775824] 12/05/2023 03:52 AM 4.6 g/dL 3.8-4.9 g/dL Globulin, Total [720892] 12/05/2023 03:52 AM 2.9 g/dL 1.5-4.5 g/dL Bilirubin, Total [100911] 12/05/2023 03:52 AM 0.3 mg/dL 0.0-1.2 mg/d L Alkaline Phosphatase [162448] 12/05/2023 03:52 AM 62 IU/L 44-121 IU/L AST (SGOT) [245984] 12/05/2023 03:51 AM 18 IU/L 0-40 IU/L ALT (SGPT) [981394] 12/05/2023 03:52 AM 16 IU/L 0-32 IU/L Lipid Panel[505315] Collected: 12/04/2023 05:01 PM Specimen Received: 12/04/2023 05:00 AM Source: [facility] Cholesterol, Total [[id number]] 12/05/2023 04:00 AM 261 mg/dL H 100-199 mg/d L Triglycerides [407682] 12/05/2023 03:58 AM 128 mg/dL 0-149 mg/dL HDL Cholesterol [851619] 12/05/2023 03:58 AM 104 mg/dL >39 mg/dL VLDL Cholesterol Eren [457893] 12/05/2023 04:00 AM 22 mg/dL 5-40 mg/dL LDL Chol Calc ([facility]) [960896] 12/05/2023 04:00 AM 135 mg/dL H 0-99 mg/dL Hemoglobin A1c[957857] Collected: 12/04/2023 05:01 PM Specimen Received: 12/04/2023 05:00 AM Source: [facility] Hemoglobin A1c [[id number]] 12/05/2023 06:55 AM 5.5 % 4.8-5.6 % . Prediabetes: 5.7 - 6.4 [place] betes: >6.4 Glycemic control for adults with diabetes: 7.0 Comp. Metabolic Panel (14)[3 02549] Collected: 07/04/2023 04:01 PM Specimen Received: 07/04/2023 05:00 AM Source: [facility] Glucose [[id number]] 07/05/2023 04:03 AM 111 mg/dL H 70-99 mg/dL BUN [[id number]] 07/05/2023 04:03 AM 13 mg/dL 6-2 4 mg/dL Creatinine [693928] 07/05/2023 03:53 AM 0.76 mg/dL 0.57-1.00 mg/dL eGFR [718728] 07/05/2023 03:53 AM 91 mL/min/1.73 >59 mL/min/1.73 BUN/Creatinine Ratio [309325] 07/05/2023 04:03 AM 17 9-23 Sodium [599012] 07/05/2023 03:55 AM 143 mmol/L 134-144 mmol/L Potassium [832238] 07/05/2023 03:58 AM 4.6 mmol/L 3.5-5.2 mmol/L Chloride [980354] 07/05/2023 03:55 AM 102 mmol/L 96-106 mmol/L Carbon Dioxide, Total [708915] 07/05/2023 04:02 AM 25 mmol/L 20-29 mmol/L Calcium [729379] 07/05/2023 04:03 AM 9.5 mg/dL 8.7-10.2 mg/dL Protein, Total [359903] 07/05/2023 04:07 AM 6.7 g/dL 6.0-8.5 g/dL Albumin [964173] 07/05/2023 04:05 AM 4.4 g/dL 3.8-4.9 g/dL Globulin, Total [338122] 07/05/2023 04:07 AM 2.3 g/dL 1.5-4.5 g/dL A/G Ratio [061968] 07/05/2023 04:07 AM 1.9 1.2-2.2 Bilirubin, Total [527512] 07/05/2023 04:07 AM 0.4 mg/dL 0.0-1.2 mg/d L Alkaline Phosphatase [083224] 07/05/2023 04:10 AM 69 IU/L 44-121 IU/L AST (SGOT) [933416] 07/05/2023 04:11 AM 21 IU/L 0-40 IU/L ALT (SGPT) [701549] 07/05/2023 04:11 AM 16 IU/L 0-32 IU/L Lipid Panel[203043] Collected: 07/04/2023 04:01 PM Specimen Received: 07/04/2023 05:00 AM Source: [facility] Cholesterol, Total [[id number]] 07/05/2023 04:39 AM 259 mg/dL H 100-199 mg/d L Triglycerides [080391] 07/05/2023 04:36 AM 80 mg/dL 0-149 mg/dL HDL Cholesterol [544904] 07/05/2023 04:37 AM 90 mg/dL >39 mg/dL VLDL Cholesterol Eren [810468] 07/05/2023 04:39 AM 13 mg/dL 5-40 mg/dL LDL Chol Calc ([facility]) [528143] 07/05/2023 04:39 AM 156 mg/dL H 0-99 mg/dL Albumin/Creatinine Ratio,Uri ne[282993] Collected: 07/04/2023 04:01 PM Specimen Received: 07/04/2023 05:00 AM Source: [facility] Creatinine, Urine [167572] 07/05/2023 05:43 PM 189.1 mg/dL Not Estab. m g/dL Albumin, Urine [809380] 07/05/2023 05:51 PM 9.6 ug/mL Not Estab. ug/mL Alb/Creat Ratio [415503] 07/05/2023 05:51 PM 5 mg/g creat 0-29 mg/g creat Normal: 0 - 29 Moderately in creased: 30 - 300 Severely increased: >300 Hemoglobin A1c[[id number]] Collected: 07/04/2023 04:01 PM Specimen Received: 07/04/2023 05:00 AM Source: [facility] Hemoglobin A1c [[id number]] 07/05/2023 03:59 AM 5.4 % 4.8-5.6 % . Prediabetes: 5.7 - 6.4 [place]: >6.4 Glycemic control for adults with diabetes: 7.0 Comp. Metabolic Panel (14)[3 89472] Collected: 02/11/2023 04:56 PM Specimen Received: 02/11/2023 05:00 AM Source: [facility] Glucose [[id number]] 02/12/2023 12:31 PM 123 mg/dL H 70-99 mg/dL BUN [988491] 02/12/2023 12:31 PM 16 mg/dL 6-2 4 mg/dL Creatinine [376721] 02/12/2023 12:31 PM 0.76 mg/dL 0.57-1.00 mg/dL eGFR [728875] 02/12/2023 12:31 PM 91 mL/min/1.73 >59 mL/min/1.73 BUN/Creatinine Ratio [147471] 02/12/2023 12:31 PM 21 9-23 Sodium [422378] 02/12/2023 12:31 PM 139 mmol/L 134-144 mmol/L Potassium [787792] 02/12/2023 12:31 PM 4.5 mmol/L 3.5-5.2 mmol/L Chloride [604800] 02/12/2023 12:31 PM 99 mmol/L 96-106 mmol/L Carbon Dioxide, Total [875117] 02/12/2023 12:31 PM 23 mmol/L 20-29 mmol/L Calcium [398212] 02/12/2023 12:31 PM 10.2 mg/dL 8.7-10.2 mg/dL Protein, Total [387483] 02/12/2023 12:31 PM 7.2 g/dL 6.0-8.5 g/dL Albumin [219272] 02/12/2023 12:31 PM 4.6 g/dL 3.8-4.9 g/dL Globulin, Total [278563] 02/12/2023 12:31 PM 2.6 g/dL 1.5-4.5 g/dL A/G Ratio [530969] 02/12/2023 12:31 PM 1.8 1.2-2.2 Bilirubin, Total [772780] 02/12/2023 12:31 PM 0.5 mg/dL 0.0-1.2 mg/d L Alkaline Phosphatase [315577] 02/12/2023 12:31 PM 78 IU/L 44-121 IU/L AST (SGOT) [832707] 02/12/2023 12:31 PM 24 IU/L 0-40 IU/L ALT (SGPT) [876600] 02/12/2023 12:31 PM 18 IU/L 0-32 IU/L Lipid Panel[785771] Collected: 02/11/2023 04:56 PM Specimen Received: 02/11/2023 05:00 AM Source: [facility] Cholesterol, Total [[id number]] 02/12/2023 12:25 PM 330 mg/dL H 100-199 mg/d L Triglycerides [115829] 02/12/2023 12:25 PM 99 mg/dL 0-149 mg/dL HDL Cholesterol [061876] 02/12/2023 12:25 PM 71 mg/dL >39 mg/dL VLDL Cholesterol Eren [906587] 02/12/2023 12:25 PM 16 mg/dL 5-40 mg/dL LDL Chol Calc ([facility]) [680620] 02/12/2023 12:25 PM 243 mg/dL H 0-99 mg/dL Comment: [265423] 02/12/2023 12:25 PM 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 FH should be suspected whenfasting LDL cholesterol is above 189 mg/dL or non-HDL cholesterolis above 219 mg/dL. A family history of high cholesterol and heartdisease in 1st degree relatives should be collected. J Clin [id number];5:133-140 Hemoglobin A1c[[id number]] Collected: 02/11/2023 04:56 PM Specimen Received: 02/11/2023 05:00 AM [facility] [[id number]] 02/12/2023 12:00 PM 5.4 % 4.8-5.6 % . Prediabetes: 5.7 - 6.4 [place]: >6.4 Glycemic control for adults with diabetes: 7.0 Allergies, adverse reactions, alerts No known allergies and adverse reactions Medications No administered medications reported Vital Signs No vital signs reported Social History No smoking Hx information available
== END 2025-01-07 10:57 | disposition home or self-care (01) ==
LOC: HO.XRAY 10:56
DX: M79.645 Pain in left finger(s) (principal); E78.00 Pure hypercholesterolemia, unspecified; R74.8 Abnormal levels of other serum enzymes; M75.102 Unspecified rotator cuff tear or rupture of left shoulder, not specified as traumatic; M54.50 Low back pain, unspecified; R73.01 Impaired fasting glucose; G89.29 Other chronic pain; Z79.890 Hormone replacement therapy; Z79.899 Other long term (current) drug therapy
CPT/HCPCS: 73130; 83036; 96127

== ENCOUNTER 2025-01-07 10:56 | Outpatient (AMB) | payer BC, SELFPAY ==
--- NOTE | 2025-01-07 10:49 | A.OFFPC_ITS ---
Vital Signs 3 01/07/25 11:01 Height 5 ft 8 in Weight 194 lb 6 oz BMI 29.6 BP 110/70 Blood Pressure Location Lt brachial Position Sitting Pulse 64 Pulse Source Pulse Oximeter Temp 96.9 F Temp Source Temporal Artery Scan Pulse Oximetry (%) 99 Oxygen Delivery Method Room Air Intake Visit Reasons: hld/elevated liver enzymes Thread Checker Required: No Accompanied by: Self / Same As Patient Allergies No Known Allergies Allergy (Verified 01/07/25 11:32) Medication List - Last Reconciled 01/07/25 by BARBARA Robledo acyclovir 5% topical acyclovir 400 mg PO DAILY 90 days bergamot extract mg PO blood-glucose sensor (FreeStyle Pa 3 Sensor device) As directed estradiol 2 mg PO DAILY ezetimibe 10 mg PO DAILY levonorgestrel (Mirena) intrauterine vitamin B complex 1 tab PO DAILY Tobacco use date assessed: 01/07/25 Dental Screening Dental Screen Date: 10/07/24 Did you have a dental visit in the last 12 months?: Yes Did you have a dental problem in the last 6 months where you did not have access to dental care?: No Was dental information given to patient?: Patient has dentist HPI hld/elevated liver enzymes 2 HPI0 Details The patient is a 59-year-old female presenting for follow up appt HLD and elevated liver enzymes. her statin was discontinued due to muscle pain, but her cholesterol increased after. Ezetimibe 10 mg daily started. Follow up labs shows elevated cholesterol primarily LDL. Presenting for management of hypercholesterolemia and multiple musculoskeletal pains. She reports a weight gain of 11 pounds in the last month and has been less strict with her diet, now consuming foods like potatoes and rice. Regarding her hypercholesterolemia, she believes it is hereditary. She was previously on 10 mg of atorvastatin, but it was not well-tolerated, and the dose was not increased. Her HDL cholesterol has improved, rising to 78, but her total cholesterol remains high. The patient has several musculoskeletal complaints, including chronic disc pain in her lower back for which a cortisone shot provided temporary relief before the pain returned. She reports significant left shoulder pain, possibly tendinitis, and can barely move her arm up. She experiences severe soreness on the bottom of both feet after walking for a couple of hours. Additionally, she has had worsening extreme pain in her left hand at the thumb joint area for a while. Reports plans to have PRP injections in left shoulder by Dr. Jae Gardner from [facility] in [place] The patient also reports chronic back and shoulder pain, for which she received a cortisone injection in the lower back on August 27. The injection has been effective, and the patient is currently managing well with the pain. She also had an injection in the left shoulder which has been effective as well, but now has been wearing off. Patient was concerned about her mildly elevated fasting glucose. Reassuring A1c done in office 5.1% PENDING SALE TO [facility] Medical History Disc degeneration, lumbar Colon polyp Chickenpox Arthritis Surgical History H/O colonoscopy [place] teeth removed History of biopsy H/O laser assisted in situ keratomileusis S/P bilateral breast reduction Family History Maternal Grandmother Cancer Maternal Grandfather Heart attack Paternal Grandmother Stroke Father Diabetes type 2 Heart disease Mother Heart disease Brother Cancer of kidney Social History Household Members Other:: Daughter Housing: House Alcohol intake: current Alcohol intake frequency: a few times a week Patient Tobacco Use Status: Never used Tobacco e-Cigarette/Vaping Use: Never Used Second Hand Smoke Exposure: No service: No Current occupational status: employed 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 1. Little interest or pleasure in doing things: not at all 2. Feeling down, depressed, or hopeless: not at all 3. Trouble falling or staying asleep, or sleeping too much: not at all 4. Feeling tired or having little energy: not at all 5. Poor appetite or overeating: not at all 6. Feeling bad about yourself - or that you are a failure or have let yourself or your family down: not at all 7. Trouble concentrating on things, such as reading the newspaper or watching television: not at all 8. Moving or speaking so slowly that other people could have noticed. Or the opposite - being so fidgety or restless that you have been moving around a lot more than usual: not at all 9. Thoughts that you would be better off or of hurting yourself in some way: not at all Total score: 0 Depression Screening Interpretation: Negative Depression Screening Done: Yes Source: Developed by Drs. William Ortiz, Aliyah Bartlett, Hussein Ann and colleagues, with an educational susie from [employer]. Thrive Questionnaire Date Thrive assessed: 05/24/24 I am a: Patient What is your living situation today?: I have a steady place to live Within the past 12 months, did the food you bought not last and you didn't have the money to get more?: Never true Within the past 12 months, did you worry whether your food would run out before you got money to buy more?: I choose not to answer this question Do you have trouble paying for medicines?: I choose not to answer this question Do you have trouble getting transportation to medical appointments?: I choose not to answer this question Do you have trouble paying your heating and electricity bill?: I choose not to answer this question Do you have trouble taking care of your child, family member or friend?: I choose not to answer this question Do you have trouble with day-to-day activities such as bathing, preparing meals, shopping, managing finances, etc.?: I choose not to answer this question Are you currently unemployed and looking for a job?: I choose not to answer this question Are you interested in more education?: I choose not to answer this question Currently or been in a relationship where the following occur: I choose not to answer THRIVE Score: 0 AUDIT C Alcohol Use Questionnaire (AUDIT-C) 1. How often do you have a drink containing alcohol?: 2-3 times a week 2. How many drinks containing alcohol do you have on a typical day when you are drinking?: 1 or 2 3. How often do you have six or more drinks on one occasion?: Never Total Score: 3 LOC-7 AMB Questionnaire LOC-7 Date LOC - 7 assessed: 10/07/24 Feeling nervous, anxious, or on edge: 0 = Not at all Not being able to stop or control worryin = Not at all Worrying too much about different things: 0 = Not at all Trouble relaxin = Not at all Being so restless that it is hard to sit still: 0 = Not at all Becoming easily annoyed or irritable: 0 = Not at all Feeling afraid as if something awful might happen: 0 = Not at all Total LOC-7 score (0-4 normal; 5-9 mild; 10-14 moderate; 15-21 severe): 0 Source: Developed by Drs. William Ortiz, Aliyah Bartlett, Hussein Ann and colleagues, with an educational susie from [employer]. Review of Systems Const Denies body aches, Denies chills, Denies fever(s), Reports headache(s) and Denies poor appetite Eyes Reports no additional complaints ENT Denies dysphagia, Denies dizziness, Reports headache(s) and Denies odynophagia Card Denies chest pain, Denies syncope, Denies edema, Denies irregular heart rhythm, Denies lightheadedness and Denies dyspnea Resp Denies cough and Denies dyspnea GI Denies abdominal pain, Denies constipation, Denies dysphagia, Denies diarrhea, Denies nausea, Denies odynophagia and Denies vomiting Reports no additional complaints Musc Reports back pain and Reports arthralgias (Bilateral shoulder, left worse, left hand thumb) Skin/Breast Reports lesions Neuro Denies Abnormal speech present, Denies dizziness, Denies syncope and Reports headache(s) Psych Reports no additional complaints Physical exam (Primary Care) Vital Signs: Last Vital Signs Temp 96.9 F 01/07/25 11:01 Pulse 64 01/07/25 11:01 BP 110/70 01/07/25 11:01 Pulse Ox 99 01/07/25 11:01 Oxygen Delivery Method Room Air 01/07/25 11:01 BMI result Body Mass Index 29.6 Tobacco/Smoking Status: Tobacco use Status Tobacco use date assessed 01/07/25 01/07/25 11:11 Patient Tobacco Use Status Never used Tobacco 01/07/25 10:49 e-Cigarette/Vaping Use Never Used 01/07/25 10:49 PHQ-9: PHQ-9 Score PHQ-9: Total score 0 01/07/25 21:10 Depression Screening Interpretation: Negative Thrive Assessment: Date of Thrive Assessment Date Thrive assessed 05/24/24 01/07/25 10:49 Currently or been in a relationship where the following occur: I choose not to answer Const General: healthy appearing, no acute distress, alert and awake Nutritional Appearance: well nourished Orientation/consciousness: oriented to person, oriented to place and oriented to time HENMT Head: Yes normal to inspection Ears: hearing grossly normal bilaterally General nose exam: Normal external nose present Eyes Conjunctivae: conjunctivae normal Sclerae: sclerae normal Pupils: Equal, round and reactive pupils present Neck Neck: Yes no lymphadenopathy and Yes no JVD Thyroid: Thyroid normal Carotids: no bruits Resp Effort & Inspection: normal respiratory effort and not tachypneic Auscultation: no crackles, no rales, no rhonchi and no wheezes Cardio Rate: regular rate Rhythm: regular rhythm Heart sounds: S1 normal heart sound present, S2 normal heart sound present, no murmurs and normal S1 and S2 GI Palpation (GI): Soft to palpation, nontender, no hepatomegaly and no splenomegaly Auscultation: normal bowel sounds General: Yes no CVA tenderness Back/Spine/Pelvis Back: no CVA tenderness Thoracic/Lumbar Spine: lumbar spinal tenderness Skin General skin exam: no rashes or lesions noted and dry skin Neuro General: oriented to person, oriented to place and oriented to time Cranial nerves: Yes Equal, round and reactive pupils present Speech: No Abnormal speech present Gait exam (Neuro): Normal gait present Motor exam (neuro): no tremor noted Extrem Right upper extremity: full ROM Left upper extremity: full ROM, shoulder/upper arm Details: no tenderness and no swelling and hand Details: no tenderness (Left thumb) and no swelling (Left thumb) Hand/finger images: 2 1. Pain in left CMC joint with ROM Right lower extremity: full ROM; no edema Left lower extremity: full ROM; no edema Psych Mental Status: mental status grossly normal Speech and movement: Normal speech and movement present Affect: normal affect Attitude: cooperative Thought process: Normal thought process present Results AMB Hemoglobin A1c 2 AMB Hemoglobin A1c 5.1 % Last Edit by JN Mcdonald on 01/07/25 12:39 Results Reviewed Results Reviewed: Laboratory Last Values Hgb A1c (Clinic) 5.1 % (4.0-6.0) 01/07/25 11:51 Laboratory Tests 12/31/24 12/31/24 09:18 09:21 Sodium 139 Potassium 4.5 Chloride 105 Carbon Dioxide 27 Anion Gap 12 BUN 17 H Creatinine 0.75 Estimated GFR > 60 Fasting Glucose 112 H Calcium 9.0 Total Bilirubin 0.4 AST 23 ALT 18 Alkaline Phosphatase 62 Total Protein 7.1 Albumin 4.2 Triglycerides 136 Cholesterol 255 H LDL Cholesterol, Calc 152 H HDL Cholesterol 76 25-OH Vitamin D Total 53.3 TSH 2.42 Urine Color Yellow Urine Appearance Clear Urine pH 6.0 Ur Specific [place] 1.020 Urine Protein Negative Urine Glucose (UA) Negative Urine Ketones Negative Urine Blood Negative Urine Nitrite Negative Ur Leukocyte Esterase Negative Coding Level of Care Code Est Pt Level 3 (93659) Diagnoses Pure hypercholesterolemia E78.00 Hyperlipidemia type: pure hypercholesterolemia Elevated liver enzymes R74.8 Nontraumatic tear of left rotator cuff, unspecified tear extent M75.102 Rotator cuff tear extent: unspecified tear extent Rotator cuff tear trauma status: nontraumatic Chronic bilateral low back pain, unspecified whether sciatica present M54.50; G89.29 Back pain laterality: bilateral Chronicity: chronic Sciatica presence: unspecified whether sciatica present Pain of left thumb M79.645 Impaired fasting glucose R73.01 Time Spent (min) 37 Assessment & Plan Assessment & Plan (1) HLD (hyperlipidemia): Code(s): E78.5 - Hyperlipidemia, unspecified Category: Medical Qualifiers: Hyperlipidemia type: pure hypercholesterolemia Qualified Code(s): E 78.00 - Pure hypercholesterolemia, unspecified Plan: Triglycerides 136, total cholesterol 255, LDL 152, HDL 76 Patient atorvastatin was discontinued due to muscle aches. Her cholesterol increased which is the above levels. She was started on ezetimibe. Repeat labs show a 10 point increase in LDL. Trying a different statin was discussed. Zocor 10 mg at bedtime was added. Continue ezetimibe 10 mg daily. We will repeat lipid panel in 3 months. (2) Elevated liver enzymes: Code(s): R74.8 - Abnormal levels of other serum enzymes Category: Medical Plan: Her liver enzymes continued to be in normal since stopping atorvastatin. The Zocor 10 mg was added to medication regimen We will repeat CMP in 3 months (3) Rotator cuff tear, left: Code(s): M75.102 - Unspecified rotator cuff tear or rupture of left shoulder, not specified as traumatic Category: Medical Qualifiers: Rotator cuff tear extent: unspecified tear extent Rotator cuff tear trauma status: nontraumatic Qualified Code(s): M75.102 - Unspecified rotator cuff tear or rupture of left shoulder, not specified as traumatic Plan: Patient has gotten steroid injection in the past. Plans for PRP injection, so she was told by Orthopedics to stop celecoxib 200 mg b.i.d. in preparation for this injection. Follow up with Orthopedics as scheduled (4) Lower back pain: Code(s): M54.50 - Low back pain, unspecified Category: Medical Qualifiers: Back pain laterality: bilateral Chronicity: chronic Sciatica presence: unspecified whether sciatica present Qualified Code(s): M54.50 - Low back pain, unspecified; G89.29 - Other chronic pain Plan: Similarly the patient received an injection in her back recently in August 27 Follow up with Orthopedics as scheduled (5) Pain of left thumb: Code(s): M79.645 - Pain in left finger(s) Category: Medical Plan: Complain of pain in left CMC joint Left hand x-ray ordered to further evaluate (6) Impaired fasting glucose: Code(s): R73.01 - Impaired fasting glucose Category: Medical Plan: Fasting glucose 112. A1c reassuring at 5.1% in office Orders: Orders 2 AMB Hemoglobin A1c 01/07/25 Z13.9 - Encounter for screening, unspecified Complete Blood Count Auto Diff 3 Months E78.00 - Pure hypercholesterolemia, unspecified, G62.9 - Polyneuropathy, unspecified, R74.8 - Abnormal levels of other serum enzymes Comprehensive [place]. Panel Fast 3 Months E78.00 - Pure hypercholesterolemia, unspecified, G62.9 - Polyneuropathy, unspecified, R74.8 - Abnormal levels of other serum enzymes Lipid Panel 3 Months E78.00 - Pure hypercholesterolemia, unspecified, G62.9 - Polyneuropathy, unspecified, R74.8 - Abnormal levels of other serum enzymes Vitamin D 25-OH Total 3 Months E78.00 - Pure hypercholesterolemia, unspecified, G62.9 - Polyneuropathy, unspecified, R74.8 - Abnormal levels of other serum enzymes UA CC w/rflx Micro + Cult 3 Months E78.00 - Pure hypercholesterolemia, unspecified, G62.9 - Polyneuropathy, unspecified, R74.8 - Abnormal levels of other serum enzymes TSH reflex Free T4 3 Months E78.00 - Pure hypercholesterolemia, unspecified, G62.9 - Polyneuropathy, unspecified, R74.8 - Abnormal levels of other serum enzymes Medications: New 2 simvastatin (Zocor) 10 mg PO BEDTIME 90 tabs 3RF simvastatin (Zocor) 10 mg PO BEDTIME 90 tabs 3RF
[2025-01-07 11:01] VITALS: BP 110/70; PULSE 64; TEMP 36.1; O2SAT 99; BMI 29.6
--- OUTSIDE RECORDS SUMMARY | 2025-01-07 13:05 | XMS_ITS | Encounter Summary ---
Author Organization [facility] Address [address] [place] [address] Phone Care Team Providers Care Card Lacer Jacquard Name Role Phone Aliyah Campos NP Primary Care Provider Encounter Details Date Type Department Care Team (Late st Contact Info) Description 09/25/2023 Procedure Pass OR Admitting Dept - Virtual Department [address] [place] [address] Social History Tobacco Use Types Packs/Day Years [...] 6:21 AM EDT Lesli Meredith RN * [place] Suicide Severity Rating Scale (Screener/Recent Self-Report) Question Answer Date of Assessment Author 2. Non-Specific Active Suici mae Thoughts (Past 1 Month) No 09/25/2023 6:21 AM EDT Mayela Jones RN documented as of this encounter Plan of Treatment Not on file documented as of this encounter Visit Diagnoses Not on filedocumented in this encounter Care Teams Card Lacer Jacquard Relationship Specialty Start Date End Date Aliyah Campos NP PCP - General Nurse Practitioner 09/12/23 documented as of this encounter Additional Source Comments The information contained in this document represents components of the legal health record. It is not the complete legal health record.[facility]
--- OUTSIDE RECORDS SUMMARY | 2025-01-07 13:05 | XMS_ITS | Clinical Summary ---
Author Organization [facility] Address [address] [place] [address] Phone Care Team Providers Care Parts Product Analyst Name Role Phone Aliyah Campos NP Primary [...] patient's age to complete this topic IPV VACCINES Aged Out No longer eligi ble based on patient's age to complete this topic MENINGOCOCCAL VACCINES (ACWY) Aged Out No longer eligible based on patient's age to complete this topic MENINGOCOCCAL VACCINES (B) Aged Out N o longer eligible based on patient's age to complete this topic Medical Devices Implanted Type Area Supervisor Cartography Device Identifier Shelf Expiration Date Model / Serial / Lot Stopover Memoy Gel Boost Breast Implant 340 Cc Ref # [id number] Implanted:Qty: 1 on 09/25/2023 by Andres Bearden DO at [facility] Right: Breast 11/13/2027 / / [id number] Stopover Memory Gel Boost Breast Implant 340cc Ref # [id number] Implanted:Qty: 1 on 09/25/2023 by Andres Bearden DO at [facility] Left: Breast 03/18/2028 / / [id number] Explanted Type Area Supervisor Cartography Device Identifier Shelf Expiration Date Model / Serial / Lot Breast Explanted:Qty: 2 on 09/25/2023 by Andres Bearden DO at [facility] Breast Description:JIMY STYLE 68M P 300CC LOT #'[id number] Insurance [facility] PPO BLUE CROSS OUT OF STATE PPO BLUE CROSS OUT OF STATE PPO BLUE CROSS OUT OF STATE PPO BLUE CROSS OUT OF STATE PPO BLUE CROSS OUT OF STATE PPO Advance Directives For more information, please contact: [phone] (9AM - 5PM [facility], Monday-Monday) * Full Code (Latest Code Status on File) Date Activated Date Inactivated Comments 09/25/2023 6:12 AM Question Answer Comments Code Status Confirmed With: Patient Care Teams Parts Product Analyst Relationship Specialty Start Date End Date Aliyah Campos NP PCP - General Nurse Practitioner 09/12/23 Additional Source Comments The information contained in this document represents components of the legal health record. It is not the complete legal health record.[facility]
--- OUTSIDE RECORDS SUMMARY | 2025-01-07 13:05 | XMS_ITS | Encounter Summary ---
Author Organization [facility] Address [address] [place] [address] Phone Care Team Providers Care Illusionist Name Role Phone Aliyah Campos MANAGER BATTERY Primary Care Provider Encounter Details Date Type Department Care Team (Late st Contact Info) Description 09/25/2023 Transcribe Orders [facility] Specimen Processing [address] [place] [address] Aliyah Campos, [place] [address] [place] [address] Social History Tobacco Use Types Packs/Day Years [...] 6:21 AM EDT Lesli Meredith RN * [place] Suicide Severity Rating Scale (Screener/Recent Self-Report) Question Answer Date of Assessment Author 2. Non-Specific Active Suici mae Thoughts (Past 1 Month) No 09/25/2023 6:21 AM EDT Mayela Jones RN documented as of this encounter Plan of Treatment Not on file documented as of this encounter Visit Diagnoses Not on filedocumented in this encounter Care Teams Illusionist Relationship Specialty Start Date End Date Aliyah Campos NP PCP - General Nurse Practitioner 09/12/23 documented as of this encounter Additional Source Comments The information contained in this document represents components of the legal health record. It is not the complete legal health record.[facility]
--- OUTSIDE RECORDS SUMMARY | 2025-01-07 13:05 | XMS_ITS | Clinical Summary ---
Author Organization [facility] [address] Address [address] [place] [address] Phone Care Team Providers Care Weather Forecaster Name Role Phone Deya Mixon MD Primary Care Provider [phone] Allergies No known active allergies Medications estradioL [...] Date Site/Laterality Comments BREAST REDUCTION - PROCEDURE: [place] BREAST REDUCTION OTHER SURGICAL HISTORY 05/29/06 PROCEDURE: TN CRYOTHERAPY CO2 SLUSH LIQUID N2 ACNE; COMMENT: [...] Years Used Date Smoking Tobacco: Former Cigarettes 1.5 Q uit: 02/27/1995 Smokeless Tobacco: Never Alcohol [...] 02/02/2021, 07/08/2020, 06/17/2020 Influenza Vaccine (#1) 2024 , 01/12/2020, 12/23/2018, [...] Result * Hepatitis C Screening (08/04/2021) [facility] Screening Abstracted Historical Provider HEALTH MAINTENANCE Final Result * Cervical Cancer Screening: HPV (04/01/2019) [facility] Cervical Cancer Screening: HPV Negative, abstracted [facility] Provider HEALTH MAINTENANCE Final Result * Colonoscopy (04/22/2016) [facility] Colonoscopy No interpretation , abstracted Anatomical Region Laterality Modality Other Historical Provider HEALTH MAINTENANCE Final Result from Last 3 Months or Most Recently Relevant to Health Maintenance Insurance [place]) Care Teams Weather Forecaster Relationship Specialty Start Date End Date Deya Mixon MD PCP - General 08/14/23
== END 2025-01-07 12:07 | disposition home or self-care (01) ==
LOC: HO.HMCH 10:56
DX: E78.00 Pure hypercholesterolemia, unspecified (principal); R74.8 Abnormal levels of other serum enzymes; M75.102 Unspecified rotator cuff tear or rupture of left shoulder, not specified as traumatic; M54.50 Low back pain, unspecified; G89.29 Other chronic pain; M79.645 Pain in left finger(s); R73.01 Impaired fasting glucose

== ENCOUNTER → 2025-01-07 12:16 | Outpatient (BNV) | payer BC, SELFPAY | PROVIDERS: Visit Provider Radiology Diagnostic Radiology | DX: M79.645 Pain in left finger(s) (principal) | CPT/HCPCS: 73130 ==